=== PATIENT | female | born 1940 | race Caucasian/White ===

== ENCOUNTER → 2016-09-22 | Outpatient (CLI) | payer BC ==
[~2016-09-22] MED LIST: ASPEC325 PO; ASPI81TA28 PO; ATOR-24 PO; CHOL1000 PO; CHOL400T PO; CYAN100020 PO; CYAN500S5 PO; HYDR500C3 PO; LPT40 PO; MULT-513 PO; PRED1SUS3 OPR; PROP20TA67 PO; PROP80CA PO; SERT1TAB88 PO; SERT25TA PO
[2016-09-22 11:28] LABS: BASO % 0.8 %; BASO ABS # 0.07 K/uL (0-0.2); COMPLETE YES; EOS % 5.8 %; HEMATOCRIT 45.7 % (37-47); IG% 0.2 %; LYMPH % 14.9 %; LYMPH ABS # 1.24 K/uL (1.2-3.4); MEAN CELL VOLUME 96.2 fL (80-100); MEAN CORPUSCULAR HEMOGLOBIN 33.1 pg (25-34); MEAN CORPUSCULAR HGB CONC 34.4 g/dl (32-36); MEAN PLATELET VOLUME 12.4 fL (7.4-10.4); MONO % 10.7 %; NEUT % 67.6 %; PLATELET COUNT 477 K/uL (130-400); RED BLOOD COUNT 4.75 M/uL (4.2-5.4)
[2016-09-22 11:35] LABS: ALB/GLOB RATIO 1.5 (0.9-2); ALT/SGPT 24 U/L (12-78); AST/SGOT 16 U/L (15-37); BLOOD UREA NITROGEN 18 mg/dl (7-18); BUN/CREATININE RATIO 20.6 (10-20); CALCIUM 8.6 mg/dl (8.5-10.1); CARBON DIOXIDE 26 mmol/L (21-32); CHLORIDE 106 mmol/L (98-107); CREATININE 0.86 mg/dl (0.60-1.20); ESTIMATED AVERAGE GLUCOSE 111 mg/dl; GLUCOSE 100 mg/dl (70-99); HA1C FLAG Normal (Normal); SODIUM 140 mmol/L (136-145)
[2016-09-22 11:46] LABS: ALKALINE PHOSPHATASE 96 U/L (45-117); CHOLESTEROL 214 mg/dl (0-200); CHOLESTEROL/HDL RATIO 3.9; HDL CHOLESTEROL 55 mg/dl; LDL CHOLESTEROL CALCULATED 132 mg/dl; TRIGLYCERIDES 136 mg/dl (0-150); VERY LOW DENSITY LIPOPROT CALC 27 mg/dl
--- NOTE | 2016-09-26 13:45 | CODING QUERY MEDICAL NECESSITY ---
SUPPORTING DIAGNOSIS NEEDED A supporting diagnosis is required for the test/procedure performed on this patient in order for us to be reimbursed by the patient's insurance. Please provide a supporting diagnosis for the following test/procedure listed below next to the test name along with your signature. *If there is no additional diagnosis for this patient that would support the following test/procedure please document that below next to the test/procedure. Test(s)/Procedure(s) that require a supporting diagnosis: DOS 09/22 * Hba1c DIAGNOSIS: * Lipids DIAGNOSIS: Provider Signature: Date: Thank you Saba Chavez Health Information Management Once completed, please kindly fax back to [phone] For questions please call [phone]
== END | disposition home or self-care (01) ==
LOC: C.LABBC 08:33
PROVIDERS: ATTEND Internal Medicine
DX: E04.1 Nontoxic single thyroid nodule (principal); D75.1 Secondary polycythemia

== ENCOUNTER 2016-11-21 16:58 | Inpatient (IN) | payer BC, OTHER ==
[~2016-11-21] VITALS: Ht 157.5 cm; Wt 71.9 kg
[~2016-11-21 16:58] MED LIST changes: -ASPEC325 PO; -ATOR-24 PO; -CHOL1000 PO; -CYAN100020 PO; -CYAN500S5 PO; -HYDR500C3 PO; -LPT40 PO; -PRED1SUS3 OPR; -PROP20TA67 PO; -SERT25TA PO
[2016-11-21] MEDS ORDERED: SODIUM CHLORIDE 0.9% 1000ML 1,000 ML IV SCH (17:13)
--- NOTE | 2016-11-21 17:14 | EMERGENCY ROOM VISIT NOTE ---
History Report prepared by Sandra: Concepcion Michaels Under the Supervision of: Dr. Darrian Naylor D.O. 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 The patient states that earlier today she was picking up laundry and felt and "odd feeling" in her head and it concerned her causing her to sit down. She states she has numbness in her left jaw. She states she then crawled into bed and slept for 1.5 hours which she states is not normal for her to take nap but felt like she need it. Her states he was home at the time of his episode and he checked on her before she fell asleep and states she seemed to be acting and talking normally. After napping they went to see the patient's PCP and after running some tests the PCP refereed them to come to the ED for further testing. The nursing staff states the patient had another episode of jaw numbness and states the patient had a droop in her left side of her face and the patient states that she felt she was unable to use her jaw correctly but denies any jaw pain. The patient states that last night and this morning she was feeling good and did not have any other pain. She denies any chest pain, abdominal pain, leg pain or swelling, headache, nausea or vomiting. The patient states she has not had any of these symptoms in the past an denies any history of heart problem, lung problems, cancer, or blood clots. The patient states she has not had any recent travel. Source of History: patient, spouse/significant other, nursing staff Onset: earlier today RESIDENT CARE MANAGER Position: head Timing: other (episodes ) Associated Symptoms: + numbness (Jaw), No abdominal pain, No chest pain, No headache, No nausea, No vomiting Note: Associated symptoms: left sided face droop Review of Systems See HPI for pertinent positives & negatives. A total of 10 systems reviewed and were otherwise negative. Past Medical & Surgical Medical Problems: (1) Diverticulosis Colon (W/O Ment Of Hemorrhage) (2) Facial numbness (3) Hypertension Nos (4) Personal History Of Colonic Polyps (5) Personal History Oth Spec Digestive System Disease Family History Cancer Social History Smoking Status: Former Smoker Marital Status: Housing Status: lives with family Occupation Status: retired Current/Historical Medications Scheduled Aspirin (Aspirin Ec), 81 MG PO DAILY Cyanocobalamin (Vitamin B-12), 500 MCG PO DAILY Propranolol Hcl (Propranolol Hcl Er), 80 MG PO DAILY Sertraline HCl (Sertraline HCl), 25 MG PO DAILY Scheduled PRN Cholecalciferol (Vitamin D), 400 UNITS PO for supplement Allergies Coded Allergies: Morphine (Verified Allergy, Intermediate, nausea, 07/04/14) Uncoded Allergies: SULFA (Allergy, Mild, vomiting, 12/29/15) Physical Exam Vital Signs Date Time Temp Pulse Resp B/P Pulse Ox O2 Delivery O2 Flow Rate FiO2 11/21/16 18:28 62 13 93 11/21/16 17:59 55 153/80 93 Room Air 64 147/88 68 174/89 11/21/16 17:58 66 18 91 11/21/16 17:57 147/88 174/89 11/21/16 17:56 153/80 11/21/16 17:15 96 Room Air 11/21/16 17:14 61 11/21/16 17:01 36.9 74 18 193/98 100 Room Air Physical Exam GENERAL: Patient is awake, alert, and in no acute distress. Patient is resting comfortably and showing no signs of anxiety EYES: The conjunctivae are clear. The pupils are round and reactive. EARS, NOSE, MOUTH AND THROAT: The nose is without any evidence of any deformity. Mucous membranes are moist tongue is midline NECK: The neck is nontender and supple. RESPIRATORY: Normal respiratory effort is noted there is no evidence of wheezing rhonchi or rales CARDIOVASCULAR: Regular rate and rhythm noted there no murmurs rubs or gallops normal S1 normal S2 GASTROINTESTINAL: The abdomen is soft. Bowel sounds are present in all quadrants. Abdomen is nontender MUSCULOSKELETAL/EXTREMITIES: There is no evidence of gross deformity full range of motion is noted in the hips and shoulders SKIN: There is no obvious evidence of any rash. There are no petechiae, pallor or cyanosis noted. NEUROLOGIC: Patient is awake alert and oriented x3 strength is symmetric patellar reflexes are 2+ bilaterally Medical Decision & Procedures ER Provider Diagnostic Interpretation: X-ray results as stated below per interpretation by me and the radiologist. CHEST ONE VIEW PORTABLE CLINICAL HISTORY: Stroke mental status change COMPARISON STUDY: 09/18/2014 FINDINGS: The bones soft tissues and hemidiaphragms are normal. The cardiomediastinal silhouette is normal. The lungs are clear. The pulmonary vasculature is normal. IMPRESSION: Negative chest. Electronically signed by: Scot Baker M.D. 11/21/2016 5:26 PM Dictated Date/Time: 11/21/2016 5:[address] results as stated below per my review and radiologist interpretation. HEAD CT NONCONTRAST CT DOSE: 537.48 mGy.cm HISTORY: Mental status change Stroke TECHNIQUE: Multiaxial CT images of the head were performed without the use of intravenous contrast. Comparison: None. Findings: The paranasal sinuses and mastoid air cells are clear. The calvarium and skull base are intact. The ventricles and sulci are within normal limits. There is no mass, hematoma, midline shift, or acute infarct. Impression: No acute intracranial abnormality. Electronically signed by: Scot Baker M.D. 11/21/2016 5:33 PM Dictated Date/Time: 11/21/2016 5:32 PM Laboratory Results 11/21/16 17:10 Red Blood Count 5.12, Mean Corpuscular Volume 93.9, Mean Corpuscular Hemoglobin 32.8, Mean Corpuscular Hemoglobin Concent 34.9, Mean Platelet Volume 11.7, Neutrophils (%) (Auto) 68.9, Lymphocytes (%) (Auto) 13.9, Monocytes (%) (Auto) 11.6, Eosinophils (%) (Auto) 4.9, Basophils (%) (Auto) 0.5, Neutrophils # (Auto ) 7.83, Lymphocytes # (Auto) 1.58, Monocytes # (Auto) 1.32, Eosinophils # (Auto ) 0.56, Basophils # (Auto) 0.06 11/21/16 17:10 Test 11/21/16 17:10 11/21/16 17:22 White Blood Count 11.37 K/uL (4.8-10.8) Red Blood Count 5.12 M/uL (4.2-5.4) Hemoglobin 16.8 g/dL (12.0-16.0) Hematocrit 48.1 % (37-47) Mean Corpuscular Volume 93.9 fL (80-100) Mean Corpuscular Hemoglobin 32.8 pg (25-34) Mean Corpuscular Hemoglobin Concent 34.9 g/dl (32-36) Platelet Count 578 K/uL (130-400) Mean Platelet Volume 11.7 fL (7.4-10.4) Neutrophils (%) (Auto) 68.9 % Lymphocytes (%) (Auto) 13.9 % Monocytes (%) (Auto) 11.6 % Eosinophils (%) (Auto) 4.9 % Basophils (%) (Auto) 0.5 % Neutrophils # (Auto) 7.83 K/uL (1.4-6.5) Lymphocytes # (Auto) 1.58 K/uL (1.2-3.4) Monocytes # (Auto) 1.32 K/uL (0.11-0.59) Eosinophils # (Auto) 0.56 K/uL (0-0.5) Basophils # (Auto) 0.06 K/uL (0-0.2) RDW Standard Deviation 51.4 fL (36.4-46.3) RDW Coefficient of Variation 15.0 % (11.5-14.5) Immature Granulocyte % (Auto) 0.2 % Immature Granulocyte # (Auto) 0.02 K/uL (0.00-0.02) Prothrombin Time 10.7 SECONDS (9.0-12.0) Prothromb Time International Ratio 1.0 (0.9-1.1) Activated Partial Thromboplast Time 27.5 SECONDS (21.0-31.0) Partial Thromboplastin Ratio 1.1 Anion Gap 8.0 mmol/L (3-11) Est Creatinine Clear Calc Drug Dose 49.5 ml/min Estimated GFR () 74.0 Estimated GFR (Non- 63.8 BUN/Creatinine Ratio 20.4 (10-20) Calcium Level 9.0 mg/dl (8.5-10.1) Magnesium Level 2.4 mg/dl (1.8-2.4) Total Bilirubin 0.5 mg/dl (0.2-1) Direct Bilirubin 0.1 mg/dl (0-0.2) Aspartate Amino Transf (AST/SGOT) 20 U/L (15-37) Alanine Aminotransferase (ALT/SGPT) 33 U/L (12-78) Alkaline Phosphatase 108 U/L (45-117) Total Creatine Kinase 47 U/L (26-192) Creatine Kinase MB < 0.5 ng/ml (0.5-3.6) Creatine Kinase MB Ratio (0-3.0) Troponin I < 0.015 ng/ml (0-0.045) Total Protein 6.9 gm/dl (6.4-8.2) Albumin 4.2 gm/dl (3.4-5.0) Free Thyroxine 1.15 ng/dl (0.80-1.60) Bedside Glucose 96 mg/dl (70-90) Laboratory results per my review. Medications Administered Medications (Trade) Dose Ordered Sig/Nile Route Start Time Stop Time Status Last Admin Dose Admin Sodium Chloride (Nss 1000ml) 1,000 ml @ 50 mls/hr Q20H IV 11/21/16 17:13 11/21/16 21:15 DC 11/21/16 17:35 50 MLS/HR ECG Indication: weakness Rate (beats per minute): 57 Rhythm: sinus bradycardia Findings: T-wave inversion (Anterior, Inferior), no ectopy, other (LVH noted by voltage criteria ) ED Course 1704: The patient was evaluated in room B1. A complete history and physical examination were performed. 1713: Ordered NSS 1,000 ml @ 50 mls/hr IV 1804: I reevaluated the patient and she was resting comfortably. 1835: I discussed the case with Dr. Addy MORALEZ Hospitalist. He agreed to evaluate the patient for further management and care 2006: I reevaluated the patient and she was resting comfortably. Medical Decision Prior records/ancillary studies reviewed and summarized above. Nursing notes reviewed. Differential diagnosis: Etiologies such as metabolic, infection, hypo/hyperglycemia, electrolyte abnormalities, cardiac sources, intracerebral event, toxicologic, neurologic, as well as others were entertained. The patient is a 76-year-old female who presented to the emergency department for an evaluation of dizziness and near syncope. The patient describes an episode which began earlier in the day she's had a few these episodes throughout the day. She went to see her primary care physician for these symptoms and was sent to the emergency department for bradycardia and abnormal EKG. Currently the patient does take a beta stas for headache but does not have hypertension problems normally. The patient did not have any focal neurologic deficit upon arrival to the emergency department. The patient's bradycardia did not appear to be associated with dizziness or near-syncope. The patient did not have an abnormal cardiac biomarker in the emergency department. I discussed the patient's laboratory and radiographic studies with her. She had another episode while she was in the emergency Department which quickly resolved. I discussed her case with the on-call [facility] hospitalist group. They've agreed to evaluate the patient in the emergency department for further management and disposition. Consults Time Called: 1832 Consulting Physician: Dr. Addy MORALEZ Hospitalist Returned Call: 1835 I discussed the case with Dr. Addy MORALEZ Hospitalist. He agreed to evaluate the patient for further management and care Impression Primary Impression: Abnormal EKG Additional Impressions: Near syncope TIA (transient ischemic attack) Bradycardia Scribe Attestation The scribe's documentation has been prepared under my direction and personally reviewed by me in its entirety. I confirm that the note above accurately reflects all work, treatment, procedures, and medical decision making performed by me. Departure Information Dispostion Being Evaluated By Hospitalist Referrals Jamal Garcia M.D. (PCP) Patient Instructions My [facility] Problem Qualifiers Additional Impressions: TIA (transient ischemic attack) Transient cerebral ischemia type: unspecified Qualified Codes: G45.9 - Transient cerebral ischemic attack, unspecified
[2016-11-21 17:23] LABS: BASO % 0.5 %; BASO ABS # 0.06 K/uL (0-0.2); COMPLETE YES; EOS % 4.9 %; HEMATOCRIT 48.1 % (37-47); IG% 0.2 %; LYMPH % 13.9 %; LYMPH ABS # 1.58 K/uL (1.2-3.4); MEAN CELL VOLUME 93.9 fL (80-100); MEAN CORPUSCULAR HEMOGLOBIN 32.8 pg (25-34); MEAN CORPUSCULAR HGB CONC 34.9 g/dl (32-36); MEAN PLATELET VOLUME 11.7 fL (7.4-10.4); MONO % 11.6 %; NEUT % 68.9 %; PLATELET COUNT 578 K/uL (130-400); RED BLOOD COUNT 5.12 M/uL (4.2-5.4); WHITE BLOOD COUNT 11.37 K/uL (4.8-10.8)
--- NOTE | 2016-11-21 17:27 | DIAGNOSTIC IMAGING REPORT ---
CHEST ONE VIEW PORTABLE CLINICAL HISTORY: Stroke mental status change COMPARISON STUDY: 09/18/2014 FINDINGS: The bones soft tissues and hemidiaphragms are normal. The cardiomediastinal silhouette is normal. The lungs are clear. The pulmonary vasculature is normal. IMPRESSION: Negative chest. Electronically signed by: Scot Baker M.D. 11/21/2016 5:26 PM Dictated Date/Time: 11/21/2016 5:26 PM
--- NOTE | 2016-11-21 17:34 | DIAGNOSTIC IMAGING REPORT ---
HEAD CT NONCONTRAST CT DOSE: 537.48 mGy.cm HISTORY: Mental status change Stroke TECHNIQUE: Multiaxial CT images of the head were performed without the use of intravenous contrast. Comparison: None. Findings: The paranasal sinuses and mastoid air cells are clear. The calvarium and skull base are intact. The ventricles and sulci are within normal limits. There is no mass, hematoma, midline shift, or acute infarct. Impression: No acute intracranial abnormality. Electronically signed by: Scot Baker M.D. 11/21/2016 5:33 PM Dictated Date/Time: 11/21/2016 5:32 PM
[2016-11-21 17:35] LABS: PARTIAL THROMBOPLASTIN RATIO 1.1; PROTHROMBIN TIME (PATIENT) 10.7 SECONDS (9.0-12.0)
[2016-11-21 17:40] LABS: ALT/SGPT 33 U/L (12-78); AST/SGOT 20 U/L (15-37); BLOOD UREA NITROGEN 18 mg/dl (7-18); BUN/CREATININE RATIO 20.4 (10-20); CARBON DIOXIDE 27 mmol/L (21-32); CHLORIDE 108 mmol/L (98-107); CREATININE 0.87 mg/dl (0.60-1.20); GLUCOSE 91 mg/dl (70-99); MAGNESIUM 2.4 mg/dl (1.8-2.4); POTASSIUM 3.8 mmol/L (3.5-5.1); SODIUM 143 mmol/L (136-145)
[2016-11-21] MEDS ORDERED: CYAN500S5 PO (17:41)
[2016-11-21 17:43] LABS: ALKALINE PHOSPHATASE 108 U/L (45-117)
[2016-11-21] MEDS ORDERED: MAGNESIUM HYDROXIDE SUSP 30 ML UDC PO PRN (19:45)
[2016-11-21] MEDS ORDERED: ONDANSETRON INJ 2 MG/ML 2 ML VIAL IV PRN (19:45)
[2016-11-21] MEDS ORDERED: ACETAMINOPHEN 325 MG TAB PO PRN (19:45)
[2016-11-21] MEDS ORDERED: PHARMACIST DISCHARGE MED REC CONSULT PRN ×3 (19:45→20:45)
[2016-11-21] MEDS ORDERED: ALUMINUM/MAGNESIUM/SIMETH (MAALOX MAX) 30 ML UDC PO PRN (19:45)
[2016-11-21] MEDS ORDERED: POLYETHYLENE (MIRALAX) 17 GM PACK PO PRN (19:45)
[2016-11-21] MEDS ORDERED: NITROGLYCERIN 0.4 MG SL PER TAB CHARGE SL PRN (19:45)
--- NOTE | 2016-11-21 20:00 | History and Physical ---
History & Physical Date & Time of Service: Nov 21, 2016 at 19:55 Chief Complaint: Dizziness, Physician Referred Primary Care Physician: Jamal Garcia M.D. History of Present Illness Source: patient, family 77 yo F p/w hx of generalized weakness and transient facial numbness. She reports feeling an "odd feeling" that started this morning. including weakness, dizziness though she denies syncope, vertigo symptoms. Around 2PM She also noticed numbness Left side of face that lasted less than a minute, called for . found was sitting on floor. denies confusion, LOC. Patient took a nap for an hr then went to clinic with PCP Dr. Crooks around 3: 45 PM AT Clinic, EKG showed sinus bradycardia at a rate of 47 and later sent her to ED. While In ED , patient experience episode of Rt Jaw numbness and stiffness again with transient double vision, which lasted less than a minute. Patient denies any further symptoms. no cp , no sob, no palpitation, no syncope, no paroxysmal nocturnal dyspnea, no orthopnea. Past Medical/Surgical History Medical Problems: (1) Diverticulosis Colon (W/O Ment Of Hemorrhage) Status: Chronic (2) Hypertension Nos Status: Chronic (3) Personal History Of Colonic Polyps Status: Chronic (4) Personal History Oth Spec Digestive System Disease Status: Chronic Sx: Partial Colon resection Family History Cancer Social History Smoking Status: Former Smoker Marital Status: Housing status: lives with family Occupational Status: retired Immunizations History of Influenza Vaccine: Yes History of Tetanus Vaccine?: Yes History of Pneumococcal: Yes Pneumococcal Date: May 30, 2014 History of Hepatitis B Vaccine: Unknown Multi-Drug Resistant Organisms History of MDRO: No Allergies Coded Allergies: Morphine (Verified Allergy, Intermediate, nausea, 07/04/14) Uncoded Allergies: SULFA (Allergy, Mild, vomiting, 12/29/15) Home Medications Scheduled Aspirin (Aspirin Ec), 81 MG PO DAILY Cyanocobalamin (Vitamin B-12), 500 MCG PO DAILY Propranolol Hcl (Propranolol Hcl Er), 80 MG PO DAILY Sertraline HCl (Sertraline HCl), 25 MG PO DAILY Scheduled PRN Cholecalciferol (Vitamin D), 400 UNITS PO for supplement Physical Exam Vital Signs Date Time Temp Pulse Resp B/P Pulse Ox O2 Delivery O2 Flow Rate FiO2 11/21/16 18:28 62 13 93 11/21/16 17:59 55 153/80 93 Room Air 64 147/88 68 174/89 11/21/16 17:58 66 18 91 11/21/16 17:57 147/88 174/89 11/21/16 17:56 153/80 11/21/16 17:15 96 Room Air 11/21/16 17:14 61 11/21/16 17:01 36.9 74 18 193/98 100 Room Air General Appearance: WD/WN, no apparent distress Head: normocephalic, atraumatic Eyes: normal inspection, PERRL, EOMI ENT: normal ENT inspection Neck: supple, no adenopathy, no carotid bruits Respiratory/Chest: chest non-tender, lungs clear, normal breath sounds, no respiratory distress Cardiovascular: regular rate, rhythm, no edema, no murmur, normal peripheral pulses Abdomen/GI: normal bowel sounds, non tender, soft, no organomegaly Extremities/Musculoskelatal: no calf tenderness, no pedal edema Neurologic/Psych: ict support engineer II-XII nml as tested, no motor/sensory deficits, alert, normal mood/affect, normal reflexes, oriented x 3 Skin: normal color, warm/dry, no rash Diagnostics Laboratory Results Results Past 24 Hours Test 11/21/16 17:10 11/21/16 17:22 11/21/16 19:38 Range/Units White Blood Count 11.37 4.8-10.8 K/uL Red Blood Count 5.12 4.2-5.4 M/uL Hemoglobin 16.8 12.0-16.0 g/dL Hematocrit 48.1 37-47 % Mean Corpuscular Volume 93.9 80-100 fL Mean Corpuscular Hemoglobin 32.8 25-34 pg Mean Corpuscular Hemoglobin Concent 34.9 32-36 g/dl Platelet Count 578 130-400 K/uL Mean Platelet Volume 11.7 7.4-10.4 fL Neutrophils (%) (Auto) 68.9 % Lymphocytes (%) (Auto) 13.9 % Monocytes (%) (Auto) 11.6 % Eosinophils (%) (Auto) 4.9 % Basophils (%) (Auto) 0.5 % Neutrophils # (Auto) 7.83 1.4-6.5 K/uL Lymphocytes # (Auto) 1.58 1.2-3.4 K/uL Monocytes # (Auto) 1.32 0.11-0.59 K/uL Eosinophils # (Auto) 0.56 0-0.5 K/uL Basophils # (Auto) 0.06 0-0.2 K/uL RDW Standard Deviation 51.4 36.4-46.3 fL RDW Coefficient of Variation 15.0 11.5-14.5 % Immature Granulocyte % (Auto) 0.2 % Immature Granulocyte # (Auto) 0.02 0.00-0.02 K/uL Prothrombin Time 10.7 9.0-12.0 SECONDS Prothromb Time International Ratio 1.0 0.9-1.1 Activated Partial Thromboplast Time 27.5 21.0-31.0 SECONDS Partial Thromboplastin Ratio 1.1 Sodium Level 143 136-145 mmol/L Potassium Level 3.8 3.5-5.1 mmol/L Chloride Level 108 98-107 mmol/L Carbon Dioxide Level 27 21-32 mmol/L Anion Gap 8.0 3-11 mmol/L Blood Urea Nitrogen 18 7-18 mg/dl Creatinine 0.87 0.60-1.20 mg/dl Est Creatinine Clear Calc Drug Dose 49.5 ml/min Estimated GFR () 74.0 Estimated GFR (Non- 63.8 BUN/Creatinine Ratio 20.4 10-20 Random Glucose 91 70-99 mg/dl Calcium Level 9.0 8.5-10.1 mg/dl Magnesium Level 2.4 1.8-2.4 mg/dl Total Bilirubin 0.5 0.2-1 mg/dl Direct Bilirubin 0.1 0-0.2 mg/dl Aspartate Amino Transf (AST/SGOT) 20 15-37 U/L Alanine Aminotransferase (ALT/SGPT) 33 12-78 U/L Alkaline Phosphatase 108 45-117 U/L Total Creatine Kinase 47 26-192 U/L Creatine Kinase MB < 0.5 0.5-3.6 ng/ml Creatine Kinase MB Ratio 0-3.0 Troponin I < 0.015 0-0.045 ng/ml Total Protein 6.9 6.4-8.2 gm/dl Albumin 4.2 3.4-5.0 gm/dl Free Thyroxine 1.15 0.80-1.60 ng/dl Bedside Glucose 96 70-90 mg/dl Diagnostic Radiology HEAD CT NONCONTRAST CT DOSE: 537.48 mGy.cm HISTORY: Mental status change Stroke TECHNIQUE: Multiaxial CT images of the head were performed without the use of intravenous contrast. Comparison: None. Findings: The paranasal sinuses and mastoid air cells are clear. The calvarium and skull base are intact. The ventricles and sulci are within normal limits. There is no mass, hematoma, midline shift, or acute infarct. Impression: No acute intracranial abnormality. EKG sinus bradycardia Impression Assessment and Plan Documented By: Larry Daly 76 yo F w/ hx of HTN on propranolol presenting with hx of transient facial numbness with subsequent transient jaw stiffening, visual disturbance while in ED, with sinus bradycardia on EKG Facial Numbness, Visual disturbance - transient, currently asx -most likely secondary to TIA, -considered Complex,Migraine, Trigeminal neuralgia but unlikely without pain, MS /optic neuritis considered but unlikely with no eye pain -considered symptomatic bradycardia as cause of dizziness but would not explain facial numbness -F/U MRI -F/U Echo -F/U carotid Doppler Start Asprin 325 mg daily Start Statin neuro consult Sinus Bradycardia -rate of 47 while in clinic before arrival -pulse has normalized -Cardiology consult HTN Hold Propranolol DVT Prophylaxis Heparin Depression Sertraline Disposition Admit to Telemetry Resident Physician Supervision Note: Pt examined independently. I discussed the case with the resident and agree with the findings and plan as documented in the note. Any exceptions or clarifications are listed here. Admitted with acute visual changes, facial paresthesias - bradycardia at primary MD office - HR 47 OE AAO x 3 S1,2 R CTAB NT, ND No defecits on full neuro exam P: ASA 325 dialy Neuro chhecks on tele Statin Echo, MRI/MRA, Carotid doppler Neuro consult Above discussed at length with pt Level of Care Telemetry Resuscitation Status FULL RESUSCITATION VTE Prophylaxis VTE Risk Assessment Done? Y/N: Yes Risk Level: Low Given or contraindicated: Unfractionated heparin SQ Social Service Consult None Apply Resident Tracking Resident Involvement: Resident Care Provided Care Provided: Adult Hospital Medicine
[2016-11-21 20:07] VITALS: Ht 157.5 cm; Wt 71.9 kg
[2016-11-21 20:46] LABS: URINE APPEARANCE CLEAR (CLEAR); URINE BILIRUBIN NEG (NEG); URINE COLOR YELLOW; URINE EPITHELIAL CELL AUTO >30 /lpf (0-5); URINE NITRITE NEG (NEG); URINE SPECIFIC GRAVITY 1.013 (1.000-1.030); UROBILINOGEN NEG (NEG)
[2016-11-21 20:49] LABS: MANUAL MICROSCOPIC REQUIRED? NO; REVIEW REQ? YES
[2016-11-21] MEDS ORDERED: ASPIRIN 81 MG CHEW PO STA (20:54)
[2016-11-21 20:59] LABS: URINE MUCUS PRESENT (NONE PRSENT)
[2016-11-21 21:01] VITALS: O2SAT 94
[2016-11-21 21:15] VITALS: BP_SYST 175; BP_SYST 178; BP_DIAS 112; BP_DIAS 82; PULSE 59; TEMP 36.9; O2SAT 96
[2016-11-21 23:05] VITALS: BP 151/86; PULSE 55; TEMP 36.6; O2SAT 94
[2016-11-21] MEDS: NITROGLYCERIN OINT 2% 1GM PACKET EXT SCH (23:07)
[2016-11-21] MEDS: HEPARIN SOD 5000 UNIT/0.5 ML CARP SQ SCH (23:08)
[2016-11-22 03:45] VITALS: BP 112/78; PULSE 63; TEMP 36.8; O2SAT 94
[2016-11-22] MEDS: NITROGLYCERIN OINT 2% 1GM PACKET EXT SCH ×2 (04:06→09:07)
[2016-11-22 05:02] VITALS: BP 157/95; PULSE 66; TEMP 36.8; O2SAT 94
[2016-11-22] MEDS: HEPARIN SOD 5000 UNIT/0.5 ML CARP SQ SCH (06:00)
[2016-11-22 06:05] LABS: BASO % 0.4 %; BASO ABS # 0.04 K/uL (0-0.2); COMPLETE YES; EOS % 5.5 %; HEMATOCRIT 44.3 % (37-47); IG% 0.2 %; LYMPH % 13.8 %; LYMPH ABS # 1.26 K/uL (1.2-3.4); MEAN CELL VOLUME 91.5 fL (80-100); MEAN CORPUSCULAR HEMOGLOBIN 31.4 pg (25-34); MEAN CORPUSCULAR HGB CONC 34.3 g/dl (32-36); MEAN PLATELET VOLUME 11.3 fL (7.4-10.4); MONO % 8.4 %; NEUT % 71.7 %; PLATELET COUNT 484 K/uL (130-400); RED BLOOD COUNT 4.84 M/uL (4.2-5.4); WHITE BLOOD COUNT 9.16 K/uL (4.8-10.8)
[2016-11-22 06:37] LABS: BUN/CREATININE RATIO 18.3 (10-20); CALCIUM 8.7 mg/dl (8.5-10.1); CREATININE 0.79 mg/dl (0.60-1.20); POTASSIUM 3.6 mmol/L (3.5-5.1)
[2016-11-22 06:40] LABS: CHOLESTEROL/HDL RATIO 3.8
[2016-11-22 07:13] LABS: ESTIMATED AVERAGE GLUCOSE 117 mg/dl; HA1C FLAG Normal (Normal)
--- NOTE | 2016-11-22 07:44 | Hospitalist Progress Note ---
Hospitalist Progress Note Date of Service Nov 22, 2016. Subjective Pt evaluation today including: conversation w/ patient, physical exam, chart review, lab review, review of studies, review of inpatient medication list Pain: none PO Intake: Good Voiding: no voiding problems The patient was seen and examined this morning. Pt reports doing well this morning. She has no complaints. Denies any symptoms like she experienced yesterday. She denies any facial numbness or tingling, no focal weakness or changes in vision. She had echocardiogram already, and will plan for carotid dopplers today. All Other Systems: Reviewed and Negative (Other than listed above) Objective Vital Signs Date Time Temp Pulse Resp B/P Pulse Ox O2 Delivery O2 Flow Rate FiO2 11/22/16 05:02 36.8 66 17 157/95 94 Room Air 11/22/16 03:45 Room Air 11/22/16 03:45 36.8 63 15 112/78 94 Room Air 11/21/16 23:15 Room Air 11/21/16 23:05 36.6 55 17 151/86 94 Room Air 11/21/16 21:15 36.9 59 15 178/112 96 Room Air 175/82 11/21/16 21:01 62 18 155/90 94 11/21/16 20:25 62 18 155/90 94 Room Air 11/21/16 20:07 Room Air 11/21/16 18:28 62 13 93 11/21/16 17:59 55 153/80 93 Room Air 64 147/88 68 174/89 11/21/16 17:58 66 18 91 11/21/16 17:57 147/88 174/89 11/21/16 17:56 153/80 11/21/16 17:15 96 Room Air 11/21/16 17:14 61 11/21/16 17:01 36.9 74 18 193/98 100 Room Air Physical Exam General Appearance: WD/WN, no apparent distress Eyes: PERRL, EOMI ENT: hearing grossly normal, pharynx normal Neck: supple, no JVD Respiratory/Chest: lungs clear, normal breath sounds, no accessory muscle use Cardiovascular: regular rate, rhythm, no JVD, no murmur Abdomen: normal bowel sounds, non tender, soft, no organomegaly Extremities: no pedal edema, no calf tenderness, + pertinent finding (+ right lateral ankle lipoma) Neurologic/Psychiatric: alert, normal mood/affect, oriented x 3, + pertinent finding (Stenght testing is equal in upper and lower ext, 5/5 throughout. ) Skin: normal color, warm/dry Laboratory Results Last 24 Hours Test 11/21/16 17:10 11/21/16 17:22 11/21/16 20:30 11/22/16 05:40 White Blood Count 11.37 K/uL 9.16 K/uL Red Blood Count 5.12 M/uL 4.84 M/uL Hemoglobin 16.8 g/dL 15.2 g/dL Hematocrit 48.1 % 44.3 % Mean Corpuscular Volume 93.9 fL 91.5 fL Mean Corpuscular Hemoglobin 32.8 pg 31.4 pg Mean Corpuscular Hemoglobin Concent 34.9 g/dl 34.3 g/dl Platelet Count 578 K/uL 484 K/uL Mean Platelet Volume 11.7 fL 11.3 fL Neutrophils (%) (Auto) 68.9 % 71.7 % Lymphocytes (%) (Auto) 13.9 % 13.8 % Monocytes (%) (Auto) 11.6 % 8.4 % Eosinophils (%) (Auto) 4.9 % 5.5 % Basophils (%) (Auto) 0.5 % 0.4 % Neutrophils # (Auto) 7.83 K/uL 6.57 K/uL Lymphocytes # (Auto) 1.58 K/uL 1.26 K/uL Monocytes # (Auto) 1.32 K/uL 0.77 K/uL Eosinophils # (Auto) 0.56 K/uL 0.50 K/uL Basophils # (Auto) 0.06 K/uL 0.04 K/uL RDW Standard Deviation 51.4 fL 49.8 fL RDW Coefficient of Variation 15.0 % 14.8 % Immature Granulocyte % (Auto) 0.2 % 0.2 % Immature Granulocyte # (Auto) 0.02 K/uL 0.02 K/uL Prothrombin Time 10.7 SECONDS Prothromb Time International Ratio 1.0 Activated Partial Thromboplast Time 27.5 SECONDS Partial Thromboplastin Ratio 1.1 Sodium Level 143 mmol/L 142 mmol/L Potassium Level 3.8 mmol/L 3.6 mmol/L Chloride Level 108 mmol/L 108 mmol/L Carbon Dioxide Level 27 mmol/L 25 mmol/L Anion Gap 8.0 mmol/L 9.0 mmol/L Blood Urea Nitrogen 18 mg/dl 14 mg/dl Creatinine 0.87 mg/dl 0.79 mg/dl Est Creatinine Clear Calc Drug Dose 49.5 ml/min 54.2 ml/min Estimated GFR () 74.0 83.1 Estimated GFR (Non- 63.8 71.7 BUN/Creatinine Ratio 20.4 18.3 Random Glucose 91 mg/dl 125 mg/dl Estimated Average Glucose 117 mg/dl Hemoglobin A1c 5.7 % Calcium Level 9.0 mg/dl 8.7 mg/dl Magnesium Level 2.4 mg/dl Total Bilirubin 0.5 mg/dl Direct Bilirubin 0.1 mg/dl Aspartate Amino Transf (AST/SGOT) 20 U/L Alanine Aminotransferase (ALT/SGPT) 33 U/L Alkaline Phosphatase 108 U/L Total Creatine Kinase 47 U/L Creatine Kinase MB < 0.5 ng/ml Creatine Kinase MB Ratio Troponin I < 0.015 ng/ml Total Protein 6.9 gm/dl Albumin 4.2 gm/dl Free Thyroxine 1.15 ng/dl Bedside Glucose 96 mg/dl Urine Color YELLOW Urine Appearance CLEAR Urine pH 5.0 Urine Specific Warren 1.013 Urine Protein NEG Urine Glucose (UA) NEG Urine Ketones NEG Urine Occult Blood NEG Urine Nitrite NEG Urine Bilirubin NEG Urine Urobilinogen NEG Urine Leukocyte Esterase MODERATE Urine WBC (Auto) 1-5 /hpf Urine RBC (Auto) 0-4 /hpf Urine Hyaline Casts (Auto) 1-5 /lpf Urine Epithelial Cells (Auto) >30 /lpf Urine Bacteria (Auto) NEG Urine Mucus PRESENT Urine Yeast (Auto) Triglycerides Level 160 mg/dl Cholesterol Level 204 mg/dl HDL Cholesterol 54 mg/dl LDL Cholesterol, Calculated 118 mg/dl VLDL Cholesterol, Calculated 32 mg/dl Cholesterol/HDL Ratio 3.8 Assessment and Plan 76 yo F w/ hx of HTN on propranolol presenting with hx of transient facial numbness with subsequent transient jaw stiffening, visual disturbance while in ED, with sinus bradycardia on EKG ? TIA with transient facial numbness and visual disturbance or ? sympotomatic bradycardia - CT Head reviewed and is negative, Awaiting MRI - Propranolol on hold ( ER 80 mg daily); HR in 50s-60s and BP elevated up into 150-160s. - If ok with cards could just reduce the dose. - 2 D Echo & carotid dopplers ordered - Lipid panel completed and she is high with total cholesterol >200, elevated triglycerides - Cont asa 325 mg daily, statin - Cardiology and neurology consulted Sinus Bradycardia -rate of 47 while in clinic before arrival, continues to be in 50s and 60s without agent on board, although bp is elevated -Cardiology consult HTN Hold Propranolol for now Depression//Anxiety Sertraline 25 mg po daily DVT ppx: Continue heparin sq Disposition: from home, likely discharge later today if studies complete and remains stable, await cards & neuro input.
[2016-11-22 08:03] VITALS: BP 131/85; PULSE 74; TEMP 36.9; O2SAT 92
[2016-11-22] MEDS ORDERED: ATORVASTATIN 40 MG TAB PO SCH (09:00)
[2016-11-22] MEDS ORDERED: ASPIRIN 325 MG ECTAB PO SCH ×2 (09:00)
[2016-11-22] MEDS ORDERED: SERTRALINE HCL 50 MG TAB PO SCH (09:00)
[2016-11-22] MEDS ORDERED: ASPIRIN 81 MG ECTAB PO SCH (09:00)
[2016-11-22] MEDS ORDERED: LORAZEPAM 1 MG TAB PO PRN (09:30)
[2016-11-22] MEDS ORDERED: LORAZEPAM 0.5 MG TAB PO PRN (09:30)
--- NOTE | 2016-11-22 11:05 | ECHOCARDIOGRAM REPORT ---
*NOTICE TO RECEIVING REPUBLICAN AGENCY This information is strictly Confidential and protected under [place] law. [place] law prohibits you from making any further disclosure of this information unless further disclosure is expressly permitted by the written consent of the person to whom it pertains or is authorized by law. A general authorization for the release of medical or other information is not sufficient for this purpose. Hospital accepts no responsibility if the information is made available to any other person, INCLUDING THE PATIENT. Interpretation Summary * Name: ROBIN MONZON Study Date: 11/22/2016 07:21 AM BP: 157/95 mmHg * Patient Location: C.2E\S\E209\S\1 HR: 66 * : 1940 (M/d/yyyy) Gender: Female Height: 62 in * Age: 76 yrs Ethnicity: CA Weight: 164 lb * Ordering Physician: Eduard Simon * Referring Physician: Jamal Garcia * Performed By: Matthew Mabry RCS * * Reason For Study: Cerebral Ischemia/Embolus * BSA: 1.8 m2 * -- Conclusions -- * 1. Normal LV size and wall thickness. * 2. Normal LV systolic function. LVEF 60-65%. No regional wall motion abnormlities. * 3. Normal RV size and function. * 4. No significant valvular pathology. * 5. Negative saline contrast study. No cardioembolic sources identified. * 6. Grade I diastolic dysfunction. * 7. No prior studies for comparison. Procedure Details * A complete two-dimensional transthoracic echocardiogram was performed (2D, M-mode, Doppler and color flow Doppler). * A saline contrast injection was performed to assess for cardiac shunting. * The injection was performed through an intravenous line in the right arm. * The attending nurse who injected the saline contrast was Guille Reyes RN. * A total of 20 cc of agitated saline was given. Left Ventricle * The left ventricle is grossly normal size. * There is normal left ventricular wall thickness. * Ejection Fraction = 60-65%. * No regional wall motion abnormalities noted. Right Ventricle * The right ventricle is grossly normal size. * The right ventricular systolic function is normal as assessed by tricuspid annular plane systolic excursion (TAPSE) (normal >1.5 cm). Atria * The left atrial size is normal. * Right atrial size is normal. * Injection of contrast documented no interatrial shunt. Mitral Valve * The mitral valve is grossly normal. * There is no mitral valve stenosis. * There is trace mitral regurgitation. Tricuspid Valve * The tricuspid valve is not well visualized, but is grossly normal. * Tricuspid stenosis is absent. * There is trace tricuspid regurgitation. Aortic Valve * The aortic valve opens well. * The aortic valve is trileaflet. * No hemodynamically significant valvular aortic stenosis. * There is no significant aortic regurgitation. Pulmonic Valve * The pulmonary valve is inadequately visualized, but the Doppler data is adequate for interpretation. * Pulmonic stenosis is absent. * There is no significant pulmonary regurgitation. Great Vessels * The aortic root and proximal ascending aorta are normal sized. * No Doppler or imaging evidence of an aortic coarctation. Pericardium/Pleural * There is no pericardial effusion. Great Vessels * Normal inferior vena cava size and collapsability with sniff indicates a normal right atrial pressure of 3 mmHg Left Ventricular Diastolic Function * Grade I diastolic dysfunction, (abnormal relaxation pattern). MMode 2D Measurements and Calculations IVSd 1.0 cm IVSs 1.3 cm LVIDd 4.2 cm LVIDs 2.8 cm LVPWd 1.0 cm LVPWs 1.6 cm IVS/LVPW 10 FS 33.2 % EDV(Teich) 77.5 ml ESV(Teich) 29.3 ml EF(Teich) 62.2 % EDV(cubed) 72.9 ml ESV(cubed) 21.7 ml EF(cubed) 70.2 % % IVS thick 29.5 % % LVPW thick 56.4 % LV mass(C)d 140.5 grams LV mass(C)dI 80.0 grams/m\S\2 LV mass(C)s 138.0 grams LV mass(C)sI 78.5 grams/m\S\2 CO(Teich) 2.8 l/min CI(Teich) 1.6 l/min/m\S\2 SV(Teich) 48.2 ml SI(Teich) 27.4 ml/m\S\2 CO(cubed) 3.0 l/min CI(cubed) 1.7 l/min/m\S\2 SV(cubed) 51.1 ml SI(cubed) 29.1 ml/m\S\2 Ao root diam 3.4 cm Ao root area 9.0 cm\S\2 ACS 1.7 cm LA dimension 3.4 cm LA/Ao 1.0 LVAd ap4 28.9 cm\S\2 LVLd ap4 7.8 cm EDV(MOD-sp4) 89.0 ml LVAs ap4 16.0 cm\S\2 LVLs ap4 5.9 cm ESV(MOD-sp4) 36.0 ml EF(MOD-sp4) 59.6 % LVAd ap2 26.1 cm\S\2 LVLd ap2 7.6 cm EDV(MOD-sp2) 74.0 ml LVAs ap2 12.3 cm\S\2 LVLs ap2 5.9 cm ESV(MOD-sp2) 22.0 ml EF(MOD-sp2) 70.3 % CO(MOD-sp4) 3.1 l/min CI(MOD-sp4) 1.7 l/min/m\S\2 SV(MOD-sp4) 53.0 ml SI(MOD-sp4) 30.2 ml/m\S\2 CO(MOD-sp2) 3.0 l/min CI(MOD-sp2) 1.7 l/min/m\S\2 SV(MOD-sp2) 52.0 ml SI(MOD-sp2) 29.6 ml/m\S\2 Doppler Measurements and Calculations MV E max yasmeen 80.0 cm/sec MV A max yasmeen 89.8 cm/sec MV E/A 0.89 MV P1/2t max yasmeen 86.9 cm/sec MV P1/2t 84.9 msec MVA(P1/2t) 2.6 cm\S\2 MV dec slope 299.8 cm/sec\S\2 MV dec time 0.21 sec Ao V2 max 137.0 cm/sec Ao max PG 7.5 mmHg Ao max PG (full) 2.5 mmHg LV V1 max PG 5.0 mmHg LV V1 max 112.0 cm/sec PA V2 max 83.7 cm/sec PA max PG 2.8 mmHg
--- NOTE | 2016-11-22 11:20 | Discharge Instructions ---
Discharge Instructions Date of Service Nov 22, 2016. Admission Reason for Admission: Facial Numbness Discharge Discharge Diagnosis / Problem: TIA (transient ischemic attack) Discharge Goals Goal(s): Decrease discomfort, Improve function, Increase independence, Improve disease control Activity Recommendations Activity Limitations: resume your previous activity Lifting Limitations: gradually increase as tolerated Exercise/Sports Limitations: gradually increase as tolerated May Resume Sexual Activity: when tolerated Shower/Bathe: no limitations Driving or Machine Use: resume 1 day after discharge . Instructions / Follow-Up Instructions / Follow-Up You were admitted to [facility] with facial numbness, arm numbness and diagnosed with Transient ischemic attack (TIA) . During your stay here you were treated by holding your beta stas. Your blood pressure and rate improved during her stay here. Your symptoms resolved. - propanolol has been CHANGED! You should not take the propranolol ER 80 mg daily, INSTEAD take propranolol 20 mg twice daily - You were started on aspirin and Lipitor for elevated cholesterol and to reduce the risk of possible TIA or stroke in the future. Imaging studies which were completed include: MRI of the brain/head which was normal. Ultrasound of the carotid arteries was completed and negative for stenosis ( occlusion or partial occlusion). The ultrasound showed 2 small right thyroid nodules which should be followed up by your primary physician. Echocardiogram was completed showing no wall motion or valvular abnormalities , with grade 1 (mild) diastolic dysfunction. Continue taking all medications as prescribed. Follow-up with primary care provider within one week of discharge. Current Hospital Diet Patient's current hospital diet: AHA Diet (Heart Healthy) Discharge Diet Recommended Diet: AHA Diet (Heart Healthy) Procedures Procedures Performed: MRI Brain/Head Carotid Dopplers Echocardiogram Pending Studies Studies pending at discharge: no Laboratory Results Hemoglobin A1c Test 11/21/16 17:10 Range/Units Estimated Average Glucose 117 mg/dl Hemoglobin A1c 5.7 H 4.5-5.6 % Lipid Panel Test 11/22/16 05:40 Range/Units Triglycerides Level 160 H 0-150 mg/dl Cholesterol Level 204 H 0-200 mg/dl HDL Cholesterol 54 mg/dl Cholesterol/HDL Ratio 3.8 LDL Cholesterol, Calculated 118 mg/dl Medical Emergencies . Who to Call and When: Medical Emergencies: If at any time you feel your situation is an emergency, please call 911 immediately. . Non-Emergent Contact Non-Emergency issues call your: Primary Care Provider Call Non-Emergent contact if: you have a fever, you have any medication questions If you developed chest pain, shortness of breath, headache, dizziness, lightheadedness, flutter, palpitation, worsening weakness, slurred speech, increasing numbness in face or arm or any other part of the body, or if you have other concerns with your health. . Past History Medical & Surgical History: (1) TIA (transient ischemic attack) (2) Hypertension Nos (3) Diverticulosis Colon (W/O Ment Of Hemorrhage) (4) Personal History Of Colonic Polyps (5) Personal History Oth Spec Digestive System Disease (6) Facial numbness (7) Bradycardia . "Provider Documentation" section prepared by Bisi Jules. VTE Core Measure Inpt VTE Proph given/why not?: Unfractionated heparin SQ, T.E.D. Stockings, SCD 's
[2016-11-22 11:26] VITALS: BP 139/86; PULSE 78; O2SAT 91
--- NOTE | 2016-11-22 11:35 | Discharge Summary ---
Discharge Summary Date of Service Nov 22, 2016. (Mehreen Jules PA-C) Discharge Summary Admission Date: Nov 21, 2016 at 19:52 Discharge Date: Nov 22, 2016 Discharge Disposition: Home Principal Diagnosis: TIA Problems/Secondary Diagnoses: Hypertension, depression, anxiety, symptomatic bradycardia. Immunizations: Have You Had Influenza Vaccine: Yes History of Tetanus Vaccine?: Yes History of Pneumococcal: Yes Pneumococcal Date: May 30, 2014 History of Hepatitis B Vaccine: Unknown Procedures: HEAD CT NONCONTRAST CT DOSE: 537.48 mGy.cm HISTORY: Mental status change Stroke TECHNIQUE: Multiaxial CT images of the head were performed without the use of intravenous contrast. Comparison: None. Findings: The paranasal sinuses and mastoid air cells are clear. The calvarium and skull base are intact. The ventricles and sulci are within normal limits. There is no mass, hematoma, midline shift, or acute infarct. Impression: No acute intracranial abnormality. Electronically signed by: Scot Baker M.D. 11/21/2016 5:33 PM CHEST ONE VIEW PORTABLE CLINICAL HISTORY: Stroke mental status change COMPARISON STUDY: 09/18/2014 FINDINGS: The bones soft tissues and hemidiaphragms are normal. The cardiomediastinal silhouette is normal. The lungs are clear. The pulmonary vasculature is normal. IMPRESSION: Negative chest. Electronically signed by: Scot Baker M.D. 11/21/2016 5:26 PM Dictated Date/Time: 11/21/2016 5:26 PM The status of this report is Signed. Echocardiogram 11/22/16 * -- Conclusions -- * 1. Normal LV size and wall thickness. * 2. Normal LV systolic function. LVEF 60-65%. No regional wall motion abnormlities. * 3. Normal RV size and function. * 4. No significant valvular pathology. * 5. Negative saline contrast study. No cardioembolic sources identified. * 6. Grade I diastolic dysfunction. * 7. No prior studies for comparison. NECK MRA HISTORY: Mental status change tia TECHNIQUE: Cnig-vj-dyxzpk and gadolinium-enhanced MRA of the neck was performed both before and after the intravenous administration of contrast. All measurements were calculated based on NASCET criteria. COMPARISON STUDY: None. FINDINGS: The aortic arch and proximal great vessels are widely patent. Mild atherosclerotic change of the carotid bifurcations. A high-grade stenotic process is not appreciated. Vertebral basilar system is unremarkable. IMPRESSION: No significant stenosis, occlusion, or dissection identified within the carotid or vertebral arteries. Minimal to very mild plaque formation bilaterally Electronically signed by: Scot Baker M.D. 11/22/2016 1:13 PM Dictated Date/Time: 11/22/2016 1:12 PM The status of this report is Signed. MR ANGIOGRAPHY OF THE [place] NO CONTRAST CLINICAL HISTORY: Transient ischemic attack. Facial numbness. COMPARISON STUDY: None. A 3-D xvqz-ne-ifaize MR angiographic sequence of the [place] was performed. Both the source and projection images were reviewed. There is no evidence of major intracranial branch occlusion. There is no evidence of intracranial stenosis. There are no lesions suspicious for aneurysm. IMPRESSION: Unremarkable MR angiography of the [place]. Electronically signed by: Chilo Martin M.D. 11/22/2016 12:43 PM Dictated Date/Time: 11/22/2016 12:41 PM The status of this report is Signed. Draft = Not yet reviewed or approved by Radiologist. Signed = Reviewed and approved by Radiologist. Brain MRI WITH AND WITHOUT CONTRAST HISTORY: Facial numbness. TECHNIQUE: Multiplanar multisequence MRI of the brain was performed both before and after the intravenous administration of contrast. COMPARISON STUDY: Head CT 11/21/2016. FINDINGS: Punctate focus of apparent restricted diffusion within the left cerebellar hemisphere on image 5 does not demonstrate loss of signal on the ADC map and therefore favors T2 shine through. Otherwise, no areas of restricted diffusion to suggest acute infarction. The midline structures are intact. A 2 cm retention cyst within the right maxillary sinus. The mastoid air cells are clear. The orbits are unremarkable. There is no mass, hematoma, or midline shift. The major vascular flow-voids at the skull base are well-maintained. There are few scattered punctate foci of T2 hyperintensity seen within the periventricular and subcortical white matter. These are nonspecific but favor mild microvascular ischemic change. No abnormal enhancement. IMPRESSION: No acute intracranial abnormality. Scattered foci of T2 hyperintensity seen within the periventricular and subcortical white matter are nonspecific but favor mild microvascular ischemic change. Electronically signed by: Lawson López M.D. 11/22/2016 1:17 PM Dictated Date/Time: 11/22/2016 1:10 PM The status of this report is Signed. Draft = Not yet reviewed or approved by Radiologist. Signed = Reviewed and approved by Radiologist. BILATERAL CAROTID DOPPLER STUDY HISTORY: Tia symptoms, categorize level/if stenosis COMPARISON: Neck MRA 11/22/2016. TECHNIQUE: Real-time, grayscale, and color Doppler sonography of the carotid arteries was performed. Imaging reviewed in the transverse and longitudinal planes. All measurements were calculated based on NASCET criteria. FINDINGS: Antegrade flow is seen in the bilateral vertebral arteries. The brachial pressures are hemodynamically similar. There are 2 right-sided thyroid nodules which measure 3.0 and 2.3 cm. Mild calcified plaque within the right carotid bulb. The peak systolic velocity within the right ICA is 64 cm/s. The right systolic ratio is 1.2. The peak systolic velocity within the left ICA is 52 cm/s. The left systolic ratio is 1.0. IMPRESSION: No hemodynamically significant stenosis seen within the carotid arteries. There are 2 right-sided thyroid nodules. Ultrasound-guided fine-needle aspiration can be performed for further evaluation on a nonemergent basis. Electronically signed by: Lawson López M.D. 11/22/2016 1:38 PM Dictated Date/Time: 11/22/2016 1:35 PM The status of this report is Signed. Draft = Not yet reviewed or approved by Radiologist. Consultations: None (Mehreen Jules PA-C) Medication Reconciliation New Medications: Propranolol (Inderal) 20 Mg Tab 20 MG PO BID for 30 Days, #60 TAB Aspirin (Aspirin) 325 Mg Ectab 325 MG PO QAM for 30 Days, #30 DOSE Atorvastatin (Atorvastatin Calcium) 40 Mg Tab 40 MG PO QAM for 30 Days, #30 TAB Continued Medications: Sertraline HCl (Sertraline HCl) 25 Mg Tab 25 MG PO DAILY, #90 Discontinued Medications: Aspirin (Aspirin Ec) 81 Mg Tab 81 MG PO DAILY Cholecalciferol (Vitamin D) 400 Unit Tab 400 UNITS PO PRN for supplement Cyanocobalamin (Vitamin B-12) 500 Mcg Sub 500 MCG PO DAILY Propranolol Hcl (Propranolol Hcl Er) 80 Mg Cap 80 MG PO DAILY, #90 Discharge Exam Subjective Pt evaluation today including: conversation w/ patient, physical exam, chart review, lab review, review of studies, review of inpatient medication list Pain: none PO Intake: Good Voiding: no voiding problems The patient was seen and examined this morning. Pt reports doing well this morning. She has no complaints. Denies any symptoms like she experienced yesterday. She denies any facial numbness or tingling, no focal weakness or changes in vision. She had echocardiogram already, and will plan for carotid dopplers today. ROS: 10 point systems reviewed and otherwise negative (Other than listed above) Physical Exam: General Appearance: WD/WN, no apparent distress, + pertinent finding ( appears much younger than stated age) Eyes: PERRL, EOMI ENT: hearing grossly normal, pharynx normal Neck: supple, no JVD Respiratory/Chest: chest non-tender, lungs clear, no respiratory distress, no accessory muscle use Cardiovascular: regular rate, rhythm, normal peripheral pulses Abdomen / GI: normal bowel sounds, non tender, soft, no organomegaly Extremities: normal inspection, no calf tenderness, normal capillary refill , no pedal edema Neurologic/Psychiatric: alert, normal reflexes, oriented x 3 Skin: normal color, warm/dry (Mehreen Jules, PA-Philip) Hospital Course H&P per Eduard Simon, Resident, . History of Present Illness Source: patient, family 77 yo F p/w hx of generalized weakness and transient facial numbness. She reports feeling an "odd feeling" that started this morning. including weakness, dizziness though she denies syncope, vertigo symptoms. Around 2PM She also noticed numbness Left side of face that lasted less than a minute, called for . found was sitting on floor. denies confusion, LOC. Patient took a nap for an hr then went to clinic with PCP Dr. Crooks around 3: 45 PM AT Clinic, EKG showed sinus bradycardia at a rate of 47 and later sent her to ED. While In ED , patient experience episode of Rt Jaw numbness and stiffness again with transient double vision, which lasted less than a minute. Patient denies any further symptoms. no cp , no sob, no palpitation, no syncope, no paroxysmal nocturnal dyspnea, no orthopnea. Vital Signs Date Time Temp Pulse Resp B/P Pulse Ox O2 Delivery O2 Flow Rate FiO2 11/21/16 18:28 62 13 93 11/21/16 17:59 55 153/80 93 Room Air 64 147/88 68 174/89 11/21/16 17:58 66 18 91 11/21/16 17:57 147/88 174/89 11/21/16 17:56 153/80 11/21/16 17:15 96 Room Air 11/21/16 17:14 61 11/21/16 17:01 36.9 74 18 193/98 100 Room Air General Appearance: WD/WN, no apparent distress Head: normocephalic, atraumatic Eyes: normal inspection, PERRL, EOMI ENT: normal ENT inspection Neck: supple, no adenopathy, no carotid bruits Respiratory/Chest: chest non-tender, lungs clear, normal breath sounds, no respiratory distress Cardiovascular: regular rate, rhythm, no edema, no murmur, normal peripheral pulses Abdomen/GI: normal bowel sounds, non tender, soft, no organomegaly Extremities/Musculoskelatal: no calf tenderness, no pedal edema 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 TIA with transient facial numbness and visual disturbance - CT Head reviewed and is negative - MRI Head with and w/o contrast: IMPRESSION: No acute intracranial abnormality. Scattered foci of T2 hyperintensity seen within the periventricular and subcortical white matter are nonspecific but favor mild microvascular ischemic change. - MRI brain: IMPRESSION: Unremarkable MR angiography of the [place]. - Neck MRA: IMPRESSION: No significant stenosis, occlusion, or dissection identified within the carotid or vertebral arteries. Minimal to very mild plaque formation bilaterally - Propranolol on hold ( ER 80 mg daily); HR has trended up from the 50s into the 80s, and BP elevated up into 150-160s. -likely ER propanolol is wearing off. Will restart on half her [employer] dosage at 40 mg daily. Pt will need follow up with PCP within 1 week. - 2D Echo: * -- Conclusions -- * 1. Normal LV size and wall thickness. * 2. Normal LV systolic function. LVEF 60-65%. No regional wall motion abnormlities. * 3. Normal RV size and function. * 4. No significant valvular pathology. * 5. Negative saline contrast study. No cardioembolic sources identified. * 6. Grade I diastolic dysfunction. * 7. No prior studies for comparison. - carotid dopplers ordered- IMPRESSION: No hemodynamically significant stenosis seen within the carotid arteries. There are 2 right-sided thyroid nodules. Ultrasound-guided fine-needle aspiration can be performed for further evaluation on a nonemergent basis. - Lipid panel completed and she is high with total cholesterol >200, elevated triglycerides - continue atorvastatin 40 mg daily - Pt was started on full dose asa 325 mg daily, should continue upon discharge Sinus Bradycardia -Resolved after stop of beta stas, will restart beta stas at a lower dosage, 40 mg daily instead of 80. - Pt initially had a rate of 47 while in clinic before arrival HTN - Propranolol held during inpatient stay. Restarted as above Depression//Anxiety Sertraline 25 mg po daily DVT ppx: Continue heparin sq Disposition: from home, discharge today, Follow up with PCP within 1 week. Total Time Spent: Greater than 30 minutes This includes examination of the patient, discharge planning, medication reconciliation, and communication with other providers. (Mehreen Jules PA-C) FLASH Physician Supervision Note: I interviewed and examined the patient. Discussed with Mehreen Jules PAC and agree with findings and plan as documented in the note. Any exceptions or clarifications are listed here: None Pt has resolution of TIA symptoms and bradycardia ( with holding b stas), negative work up vitals reviewed ans stable car is regular lungs are clear neuro is a&ox3, non focal agree to increase aspirin, decrease b stas and continue statin with close outpt follow up Documented By: Bladimir Fernandes (Bladimir Fernandes M.D.) Discharge Instructions Please refer to the electronic Patient Visit Report (Discharge Instructions) for additional information. (Mehreen Jules PA-C) Follow-Up Follow up with your Primary Care Provider within 1 week. (Mehreen Jules PA-C) Additional Copies To Jamal Garcia M.D.
--- NOTE | 2016-11-22 12:45 | DIAGNOSTIC IMAGING REPORT ---
MR ANGIOGRAPHY OF THE [place] NO CONTRAST CLINICAL HISTORY: Transient ischemic attack. Facial numbness. COMPARISON STUDY: None. A 3-D uvrv-fu-fahaun MR angiographic sequence of the [place] was performed. Both the source and projection images were reviewed. There is no evidence of major intracranial branch occlusion. There is no evidence of intracranial stenosis. There are no lesions suspicious for aneurysm. IMPRESSION: Unremarkable MR angiography of the [place] of [place]. Electronically signed by: Chilo Martin M.D. 11/22/2016 12:43 PM Dictated Date/Time: 11/22/2016 12:41 PM
--- NOTE | 2016-11-22 13:15 | DIAGNOSTIC IMAGING REPORT ---
NECK MRA HISTORY: Mental status change tia TECHNIQUE: Lmty-gj-mkmefk and gadolinium-enhanced MRA of the neck was performed both before and after the intravenous administration of contrast. All measurements were calculated based on NASCET criteria. COMPARISON STUDY: None. FINDINGS: The aortic arch and proximal great vessels are widely patent. Mild atherosclerotic change of the carotid bifurcations. A high-grade stenotic process is not appreciated. Vertebral basilar system is unremarkable. IMPRESSION: No significant stenosis, occlusion, or dissection identified within the carotid or vertebral arteries. Minimal to very mild plaque formation bilaterally Electronically signed by: Scot Baker M.D. 11/22/2016 1:13 PM Dictated Date/Time: 11/22/2016 1:12 PM
--- NOTE | 2016-11-22 13:18 | DIAGNOSTIC IMAGING REPORT ---
Brain MRI WITH AND WITHOUT CONTRAST HISTORY: Facial numbness. TECHNIQUE: Multiplanar multisequence MRI of the brain was performed both before and after the intravenous administration of contrast. COMPARISON STUDY: Head CT 11/21/2016. FINDINGS: Punctate focus of apparent restricted diffusion within the left cerebellar hemisphere on image 5 does not demonstrate loss of signal on the ADC map and therefore favors T2 shine through. Otherwise, no areas of restricted diffusion to suggest acute infarction. The midline structures are intact. A 2 cm retention cyst within the right maxillary sinus. The mastoid air cells are clear. The orbits are unremarkable. There is no mass, hematoma, or midline shift. The major vascular flow-voids at the skull base are well-maintained. There are few scattered punctate foci of T2 hyperintensity seen within the periventricular and subcortical white matter. These are nonspecific but favor mild microvascular ischemic change. No abnormal enhancement. IMPRESSION: No acute intracranial abnormality. Scattered foci of T2 hyperintensity seen within the periventricular and subcortical white matter are nonspecific but favor mild microvascular ischemic change. Electronically signed by: Lawson López M.D. 11/22/2016 1:17 PM Dictated Date/Time: 11/22/2016 1:10 PM
[2016-11-22] MEDS ORDERED: ASPEC325 PO (13:39)
[2016-11-22] MEDS ORDERED: PROP20TA67 PO (13:39)
[2016-11-22] MEDS ORDERED: LPT40 PO (13:39)
--- NOTE | 2016-11-22 13:39 | DIAGNOSTIC IMAGING REPORT ---
BILATERAL CAROTID DOPPLER STUDY HISTORY: Tia symptoms, categorize level/if stenosis COMPARISON: Neck MRA 11/22/2016. TECHNIQUE: Real-time, grayscale, and color Doppler sonography of the carotid arteries was performed. Imaging reviewed in the transverse and longitudinal planes. All measurements were calculated based on NASCET criteria. FINDINGS: Antegrade flow is seen in the bilateral vertebral arteries. The brachial pressures are hemodynamically similar. There are 2 right-sided thyroid nodules which measure 3.0 and 2.3 cm. Mild calcified plaque within the right carotid bulb. The peak systolic velocity within the right ICA is 64 cm/s. The right systolic ratio is 1.2. The peak systolic velocity within the left ICA is 52 cm/s. The left systolic ratio is 1.0. IMPRESSION: No hemodynamically significant stenosis seen within the carotid arteries. There are 2 right-sided thyroid nodules. Ultrasound-guided fine-needle aspiration can be performed for further evaluation on a nonemergent basis. Electronically signed by: Lawson López M.D. 11/22/2016 1:38 PM Dictated Date/Time: 11/22/2016 1:35 PM
[2016-11-22 13:43] VITALS: BP 139/86; PULSE 78; TEMP 36.9; O2SAT 91
[2016-11-22] MEDS ORDERED: IV FLUIDS COMPLETED PRN (14:00)
[2017-03-30] MEDS ORDERED: HYDR500C3 PO (11:26)
[2017-03-30] MEDS ORDERED: SERT25TA PO (11:26)
[2017-03-30] MEDS ORDERED: CHOL1000 PO (11:26)
[2017-03-30] MEDS ORDERED: PROP20TA67 PO (11:26)
[2017-03-30] MEDS ORDERED: ATOR-24 PO (11:26)
[2017-03-30] MEDS ORDERED: CYAN100020 PO (11:26)
[2017-04-30] MEDS ORDERED: PRED1SUS3 OPR (14:45)
== END 2016-11-22 13:58 | disposition home or self-care (01) | DRG 69 ==
LOC: ENRESERVDT → ENRESERVTM → C.EDB 16:59 → C.2E 19:52
PROVIDERS: ADMIT Internal Medicine; ATTEND Internal Medicine
DX: G45.9 Transient cerebral ischemic attack, unspecified (principal); F41.9 Anxiety disorder, unspecified; F32.9 Major depressive disorder, single episode, unspecified; R00.1 Bradycardia, unspecified; H53.2 Diplopia; I10 Essential (primary) hypertension; R20.0 Anesthesia of skin; R53.1 Weakness; R55 Syncope and collapse; R94.31 Abnormal electrocardiogram [ECG] [EKG]; Z87.891 Personal history of nicotine dependence; Z79.82 Long term (current) use of aspirin; Z79.899 Other long term (current) drug therapy; Z87.19 Personal history of other diseases of the digestive system; Z90.49 Acquired absence of other specified parts of digestive tract

== ENCOUNTER → 2017-03-08 | Outpatient (CLI) | payer BC ==
[~2017-03-08] MED LIST changes: +ASPEC325 PO; -ASPI81TA28 PO; +ATOR-24 PO; +CHOL1000 PO; -CHOL400T PO; +CYAN100020 PO; +HYDR500C3 PO; +LPT40 PO; -MULT-513 PO; +PRED1SUS3 OPR; +PROP20TA67 PO; -PROP80CA PO; +SERT25TA PO
[2017-03-08 16:41] LABS: BASO % 0.6 %; BASO ABS # 0.06 K/uL (0-0.2); COMPLETE YES; EOS % 5.6 %; HEMATOCRIT 45.6 % (37-47); IG% 0.2 %; LYMPH ABS # 1.37 K/uL (1.2-3.4); MEAN CELL VOLUME 94.4 fL (80-100); MEAN CORPUSCULAR HEMOGLOBIN 31.1 pg (25-34); MEAN CORPUSCULAR HGB CONC 32.9 g/dl (32-36); MEAN PLATELET VOLUME 12.3 fL (7.4-10.4); MONO % 12.4 %; NEUT % 67.2 %; PLATELET COUNT 618 K/uL (130-400); RED BLOOD COUNT 4.83 M/uL (4.2-5.4); WHITE BLOOD COUNT 9.79 K/uL (4.8-10.8)
== END | disposition home or self-care (01) ==
LOC: C.LABBC 15:09
PROVIDERS: ATTEND Internal Medicine
DX: D47.3 Essential (hemorrhagic) thrombocythemia (principal)

== ENCOUNTER → 2017-04-24 | Day surgery (SDC) | payer BC ==
[2017-03-30 11:27] VITALS: Ht 157.5 cm; Wt 65.9 kg
[~2017-04-24] VITALS: Ht 157.5 cm; Wt 65.9 kg
[~2017-04-24] MED LIST changes: +500ML BSS 0.3ML EPI 1:1000PF IRRIG ONE; +ACETAMINOPHEN 325 MG TAB PO PRN; +AMVISC PLUS 0.8ML SYRINGE INT OCU ONE; +ATROPINE SULFATE 0.1 MG/ML 5ML SYR IV PRN; +BSS FLUSH ONE; +EpHEDrine SULFATE INJ 50 MG/ML AMP IV PRN; +EpINEphrine INJ 1MG/ML AMP 1 MG/ML AMP ONE; +LACTATED RINGER'S 1000ML 500 ML IV SCH; +LIDOCAINE 3.5% OPH GEL PER APPLICATION CHARGE ONE; +LIDOCAINE HCL 1% MPF 2 ML VIAL ONE; -LPT40 PO; +MIDAZOLAM HCL 1 MG/ML 2ML VIAL ONE; +OCUCOAT 1 ML SOLN IO ONE; +POVIDONE-IODINE OP SOLN 30 ML BTL ONE; +PROPARACAINE 0.5% OP SOLN PER DROP CHARGE OPR SCH; -SERT1TAB88 PO; +TOBRAMYCIN/DEXAMETHASONE OPH OINT PER APPLN CHARGE ONE
[2017-04-24] MEDS: PHENYLEPHRINE HCL 2.5% OP SOLN PER DROP CHARGE OPR SCH ×2 (10:39→10:48)
[2017-04-24] MEDS: TROPICAMIDE 1% OP SOLN PER DROP CHARGE OPR SCH ×2 (10:42→10:49)
[2017-04-24] MEDS: CYCLOPENTOLATE HCL 1% OP SOLN PER DROP CHARGE OPR SCH ×2 (10:43→10:50)
[2017-04-24] MEDS: KETOROLAC 0.5% OP SOLN PER DROP CHARGE OPR SCH ×2 (10:45→10:51)
[2017-04-24] MEDS: GATIFLOXACIN OP SOLN PER DROP CHARGE OPR SCH ×2 (10:47→11:02)
--- NOTE | 2017-04-24 10:54 | History & Physical Bridge - SC ---
H&P Re-Evaluation Bridge Note: I have examined the patient, reviewed the History & Physical and in the interval since the performance of the History & Physical I have noted the following changes of clinical significance: No changes noted
--- NOTE | 2017-04-24 11:42 | [facility] Operative Report ---
Operative Report Date of Service Apr 24, 2017. Operative Report 1. PREOPERATIVE DIAGNOSIS: Cataract of the right eye. 2. POSTOPERATIVE DIAGNOSIS: Same. 3. PROCEDURE: Phacoemulsification with intraocular lens implantation of the right eye. SURGEON: Dr. Javier Tena. ANESTHESIA: Topical Lidocaine gel, 1% Non- Preserved intracameral Lidocaine, and monitored intravenous sedation. INDICATIONS FOR THE PROCEDURE: The patient is a 77 - year-old female with a history of cataract of the right eye causing significant visual impairment. The details of the proposed procedure were explained to the patient who asked appropriate questions and following discussion of all risks, benefits and alternatives agreed to have the procedure done. 4. OPERATION AND FINDINGS: DESCRIPTION OF PROCEDURE: After informed consent was obtained, the patient was brought to the Operating Room at the [facility]. The patient was placed in a supine position and then the right eye was prepped and draped in the usual sterile fashion for intraocular surgery. A drop of topical Lidocaine gel was placed in the operative eye. A wire lid speculum was then placed in the fornices. A corneal paracentesis was then created temporally. The Non-Preserved Lidocaine was then instilled into the anterior chamber. The anterior chamber was then pressurized with viscoelastic. A 2.0 mm clear corneal incision was then created temporally. A cystotome was inserted into the anterior chamber and used to create a tear in the anterior lens capsule. This capsular tear was then used to create a small flap and the flap was dragged in a counterclockwise direction in order to create a continuous curvilinear capsulorrhexis. Hydrodissection was accomplished with balanced salt solution. Phacoemulsification of the lens nucleus was then performed in a standard cluipl-dtv-bwumddo technique. The phaco time was 30 seconds with an average power of 13 %. The remaining cortical material was removed using irrigation aspiration. The capsular bag was then filled with viscoelastic. A [employer]ch [employer] Lomb MI60L +21.0 diopters lens was then loaded into the injector and injected into the capsular bag. The remaining viscoelastic was removed with the irrigation aspiration handpiece. The wound was hydrated and then checked and found to be watertight. The intraocular pressure was checked and found to be adequate. The wire lid speculum was removed and the patient's face was cleaned and dried. TobraDex ointment was placed in the inferior fornix. The patient was discharged to the Recovery Room having tolerated the procedure well. There were no complications. The patient will be seen tomorrow in the office for follow-up. I attest to the content of the Intraoperative Record and any orders documented therein. Any exceptions are noted below.
--- NOTE | 2017-04-24 11:42 | Discharge Instructions-SurgCtr ---
Discharge Instructions Date of Service Apr 24, 2017. Visit Reason for Visit: Right Cataract Discharge Discharge Diagnosis / Problem: cataract Discharge Goals Goal(s): Improve function Activity Recommendations Activity Limitations: per Instructions/Follow-up section Anesthesia . Post Anesthesia Instructions: If you have had General Anesthesia or IV Sedation: * Do not drive today. * Resume driving when surgeon permits. * Do not make important decisions or sign legal documents today. * Call surgeon for: 1. Temperature elevations greater than 101 degrees F. 2. Uncontrollable pain. 3. Excessive bleeding. 4. Persistent nausea and vomiting. 5. Medication intolerance (nausea, vomiting or rash). * For nausea and vomiting use only clear liquids such as: tea, soda, bouillon until nausea subsides, then gradually increase diet as tolerated. * If you have any concerns or questions, call your surgeon's office. If physician is unavailable and it is an emergency, call 911 or go to the nearest emergency room. . Instructions / Follow-Up Instructions / Follow-Up ACTIVITY RECOMMENDATIONS: * No strenuous lifting, jogging or running for 4 days * No swimming or yard work for 1 week. * Limited bending is permitted, such as putting on shoes. RETURN TO SCHOOL/WORK: No work until seen by physician in office. MEDICATIONS: Resume previous medications unless instructed otherwise by your surgeon. This includes eye drops for glaucoma. Zymaxid/Gatifloxacin (martinez cap) - one drop every 2 hours until bedtime Nevanac/Ilevro/Prolensa/Ketorolac (rhodes cap) - one drop every 4 hours until bedtime Prednisolone/Durezol (white/pink cap, SHAKE WELL) - one drop every 2 hours until bedtime Starting tomorrow - all 3 drops every 4 hours until seen in the office Optive drops - as needed for discomfort SPECIAL CARE INSTRUCTIONS: * Wear eyeshield when sleeping, for four nights. * You may wear your own glasses or sunglasses while awake. * You may read or watch TV * You may shower and wash your face, but be gentle around the eye and pat dry. * Blurry vision and mild irritation are normal. * Call office if pain is more severe or vision becomes dark at . FOLLOW UP VISIT: Follow-up with Dr Tena tomorrow. Diet Recommendations Home Diet: resume previous diet Procedures Procedures Performed: Right Cataract Phacoemulsification With Intraocular Lens Implant Pending Studies Studies pending at discharge: no Medical Emergencies . Who to Call and When: Medical Emergencies: If at any time you feel your situation is an emergency, please call 911 immediately. . Non-Emergent Contact Non-Emergency issues call your: [employer] . . "Provider Documentation" section prepared by Javier Tena. .
[2017-04-24 11:45] VITALS: TEMP 36.7
[2017-04-24 12:01] VITALS: BP 121/72; PULSE 52; O2SAT 94
--- NOTE | 2017-04-24 12:05 | Anesthesiology Progress Note ---
Anesthesia Post Op Note Date & Time Apr 24, 2017 at 12:04 Vital Signs Pain Intensity: 0 Vital Signs Past 12 Hours Date Time Temp Pulse Resp B/P (MAP) Pulse Ox O2 Delivery O2 Flow Rate FiO2 04/24/17 12:01 52 16 121/72 (88) 94 Room Air 04/24/17 11:45 36.7 59 16 107/70 (82) 93 Room Air 04/24/17 10:26 36.5 54 16 126/81 (96) 95 Room Air Notes Mental Status: alert / awake / arousable, participated in evaluation Pt Amnestic to Procedure: No Nausea / Vomiting: adequately controlled Pain: adequately controlled Airway Patency, RR, SpO2: stable & adequate BP & HR: stable & adequate Hydration State: stable & adequate Anesthetic Complications: no major complications apparent degree of amnesia as expected for MAC
== END | disposition home or self-care (01) ==
LOC: X.SURG 09:58
PROVIDERS: ATTEND Ophthalmology
DX: H26.9 Unspecified cataract (principal); D47.3 Essential (hemorrhagic) thrombocythemia; J45.909 Unspecified asthma, uncomplicated; R73.9 Hyperglycemia, unspecified; E78.5 Hyperlipidemia, unspecified; K21.9 Gastro-esophageal reflux disease without esophagitis; F32.9 Major depressive disorder, single episode, unspecified; Z86.73 Personal history of transient ischemic attack (TIA), and cerebral infarction without residual deficits; Z87.891 Personal history of nicotine dependence; Z79.899 Other long term (current) drug therapy

== ENCOUNTER → 2017-05-15 | Day surgery (SDC) | payer BC ==
[2017-04-30 14:45] VITALS: Ht 157.5 cm; Wt 65.9 kg
[~2017-05-15] VITALS: Ht 157.5 cm; Wt 65.9 kg
[~2017-05-15] MED LIST changes: +FENTANYL CITRATE INJ 50 MCG/1 ML 2 ML VIAL ONE; +PROPARACAINE 0.5% OP SOLN PER DROP CHARGE OPL SCH; -PROPARACAINE 0.5% OP SOLN PER DROP CHARGE OPR SCH
[2017-05-15] MEDS: PHENYLEPHRINE HCL 2.5% OP SOLN PER DROP CHARGE OPL SCH ×2 (10:22→10:32)
[2017-05-15] MEDS: TROPICAMIDE 1% OP SOLN PER DROP CHARGE OPL SCH ×2 (10:23→10:33)
[2017-05-15] MEDS: CYCLOPENTOLATE HCL 1% OP SOLN PER DROP CHARGE OPL SCH ×2 (10:24→10:35)
[2017-05-15] MEDS: KETOROLAC 0.5% OP SOLN PER DROP CHARGE OPL SCH ×2 (10:25→10:36)
[2017-05-15] MEDS: GATIFLOXACIN OP SOLN PER DROP CHARGE OPL SCH ×2 (10:26→10:36)
--- NOTE | 2017-05-15 11:26 | Discharge Instructions-SurgCtr ---
Discharge Instructions Date of Service May 15, 2017. Visit Reason for Visit: Cataract Left Eye Discharge Discharge Diagnosis / Problem: cataract Discharge Goals Goal(s): Improve function Activity Recommendations Activity Limitations: per Instructions/Follow-up section Anesthesia . Post Anesthesia Instructions: If you have had General Anesthesia or IV Sedation: * Do not drive today. * Resume driving when surgeon permits. * Do not make important decisions or sign legal documents today. * Call surgeon for: 1. Temperature elevations greater than 101 degrees F. 2. Uncontrollable pain. 3. Excessive bleeding. 4. Persistent nausea and vomiting. 5. Medication intolerance (nausea, vomiting or rash). * For nausea and vomiting use only clear liquids such as: tea, soda, bouillon until nausea subsides, then gradually increase diet as tolerated. * If you have any concerns or questions, call your surgeon's office. If physician is unavailable and it is an emergency, call 911 or go to the nearest emergency room. . Instructions / Follow-Up Instructions / Follow-Up ACTIVITY RECOMMENDATIONS: * No strenuous lifting, jogging or running for 4 days * No swimming or yard work for 1 week. * Limited bending is permitted, such as putting on shoes. RETURN TO SCHOOL/WORK: No work until seen by physician in office. MEDICATIONS: Resume previous medications unless instructed otherwise by your surgeon. This includes eye drops for glaucoma. Zymaxid/Gatifloxacin (martinez cap) - one drop every 2 hours until bedtime Nevanac/Ilevro/Prolensa/Ketorolac (rhodes cap) - one drop every 4 hours until bedtime Prednisolone/Durezol (white/pink cap, SHAKE WELL) - one drop every 2 hours until bedtime Starting tomorrow - all 3 drops every 4 hours until seen in the office Optive drops - as needed for discomfort SPECIAL CARE INSTRUCTIONS: * Wear eyeshield when sleeping, for four nights. * You may wear your own glasses or sunglasses while awake. * You may read or watch TV * You may shower and wash your face, but be gentle around the eye and pat dry. * Blurry vision and mild irritation are normal. * Call office if pain is more severe or vision becomes dark at . FOLLOW UP VISIT: Follow-up with Dr Tena tomorrow. Diet Recommendations Home Diet: resume previous diet Procedures Procedures Performed: Left Cataract Phacoemulsification With Intraocular Lens Implant Pending Studies Studies pending at discharge: no Medical Emergencies . Who to Call and When: Medical Emergencies: If at any time you feel your situation is an emergency, please call 911 immediately. . 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 . "Provider Documentation" section prepared by Javier Tena. .
--- NOTE | 2017-05-15 11:27 | [facility] Operative Report ---
Operative Report Date of Service May 15, 2017. Operative Report 1. PREOPERATIVE DIAGNOSIS: Cataract of the left eye. 2. POSTOPERATIVE DIAGNOSIS: Same. 3. PROCEDURE: Phacoemulsification with intraocular lens implantation of the left eye. SURGEON: Dr. Javier Tena. ANESTHESIA: Topical Lidocaine gel, 1% Non- Preserved intracameral Lidocaine, and monitored intravenous sedation. INDICATIONS FOR THE PROCEDURE: The patient is a 77 - year-old female with a history of cataract of the left eye causing significant visual impairment. The details of the proposed procedure were explained to the patient who asked appropriate questions and following discussion of all risks, benefits and alternatives agreed to have the procedure done. 4. OPERATION AND FINDINGS: DESCRIPTION OF PROCEDURE: After informed consent was obtained, the patient was brought to the Operating Room at the [facility]. The patient was placed in a supine position and then the left eye was prepped and draped in the usual sterile fashion for intraocular surgery. A drop of topical Lidocaine gel was placed in the operative eye. A wire lid speculum was then placed in the fornices. A corneal paracentesis was then created temporally. The Non-Preserved Lidocaine was then instilled into the anterior chamber. The anterior chamber was then pressurized with viscoelastic. A 2.0 mm clear corneal incision was then created temporally. A cystotome was inserted into the anterior chamber and used to create a tear in the anterior lens capsule. This capsular tear was then used to create a small flap and the flap was dragged in a counterclockwise direction in order to create a continuous curvilinear capsulorrhexis. Hydrodissection was accomplished with balanced salt solution. Phacoemulsification of the lens nucleus was then performed in a standard [id number] technique. The phaco time was 30 seconds with an average power of 13 %. The remaining cortical material was removed using irrigation aspiration. The capsular bag was then filled with viscoelastic. A Bausch [employer] Lomb MI60L +21.0 diopters lens was then loaded into the injector and injected into the capsular bag. The remaining viscoelastic was removed with the irrigation aspiration handpiece. The wound was hydrated and then checked and found to be watertight. The intraocular pressure was checked and found to be adequate. The wire lid speculum was removed and the patient's face was cleaned and dried. TobraDex ointment was placed in the inferior fornix. The patient was discharged to the Recovery Room having tolerated the procedure well. There were no complications. The patient will be seen tomorrow in the office for follow-up. I attest to the content of the Intraoperative Record and any orders documented therein. Any exceptions are noted below.
[2017-05-15 11:29] VITALS: TEMP 36.6
--- NOTE | 2017-05-15 11:31 | Anesthesia Progress Nt - [facility] ---
Anesthesia Post Op Note Date & Time May 15, 2017 at 11:31 Vital Signs Pain Intensity: 0 Vital Signs Past 12 Hours Date Time Temp Pulse Resp B/P (MAP) Pulse Ox O2 Delivery O2 Flow Rate FiO2 05/15/17 10:07 36.5 55 16 163/79 (107) 98 Room Air Notes Mental Status: alert / awake / arousable, participated in evaluation Pt Amnestic to Procedure: Yes Nausea / Vomiting: adequately controlled Pain: adequately controlled Airway Patency, RR, SpO2: stable & adequate BP & HR: stable & adequate Hydration State: stable & adequate Anesthetic Complications: no major complications apparent
[2017-05-15 11:42] VITALS: BP 137/83; PULSE 51; O2SAT 93
== END | disposition home or self-care (01) ==
LOC: X.SURG 09:57
PROVIDERS: ATTEND Ophthalmology
DX: H26.9 Unspecified cataract (principal); R73.9 Hyperglycemia, unspecified; E78.5 Hyperlipidemia, unspecified; Z86.73 Personal history of transient ischemic attack (TIA), and cerebral infarction without residual deficits; Z79.899 Other long term (current) drug therapy; Z96.1 Presence of intraocular lens

== ENCOUNTER → 2017-09-28 | Outpatient (CLI) | payer BC ==
[~2017-09-28] MED LIST changes: -500ML BSS 0.3ML EPI 1:1000PF IRRIG ONE; -ACETAMINOPHEN 325 MG TAB PO PRN; -AMVISC PLUS 0.8ML SYRINGE INT OCU ONE; -ATROPINE SULFATE 0.1 MG/ML 5ML SYR IV PRN; -BSS FLUSH ONE; -EpHEDrine SULFATE INJ 50 MG/ML AMP IV PRN; -EpINEphrine INJ 1MG/ML AMP 1 MG/ML AMP ONE; -FENTANYL CITRATE INJ 50 MCG/1 ML 2 ML VIAL ONE; -LACTATED RINGER'S 1000ML 500 ML IV SCH; -LIDOCAINE 3.5% OPH GEL PER APPLICATION CHARGE ONE; -LIDOCAINE HCL 1% MPF 2 ML VIAL ONE; -MIDAZOLAM HCL 1 MG/ML 2ML VIAL ONE; -OCUCOAT 1 ML SOLN IO ONE; -POVIDONE-IODINE OP SOLN 30 ML BTL ONE; -PROPARACAINE 0.5% OP SOLN PER DROP CHARGE OPL SCH; -TOBRAMYCIN/DEXAMETHASONE OPH OINT PER APPLN CHARGE ONE
[2017-09-28 13:31] LABS: BASO % 0.7 %; BASO ABS # 0.04 K/uL (0-0.2); EOS % 2.7 %; EOS ABS # 0.16 K/uL (0-0.5); HEMATOCRIT 42.8 % (37-47); HEMOGLOBIN 14.3 g/dL (12.0-16.0); IG# 0.01 K/uL (0.00-0.02); LYMPH % 16.9 %; LYMPH ABS # 1.01 K/uL (1.2-3.4); MEAN CELL VOLUME 109.5 fL (80-100); MEAN CORPUSCULAR HEMOGLOBIN 36.6 pg (25-34); MEAN CORPUSCULAR HGB CONC 33.4 g/dl (32-36); MEAN PLATELET VOLUME 11.3 fL (7.4-10.4); MONO % 14.4 %; MONO ABS # 0.86 K/uL (0.11-0.59); NEUT % 65.1 %; PLATELET COUNT 209 K/uL (130-400); RED CELL DISTRIBUTION WIDTH CV 13.8 % (11.5-14.5); RED CELL DISTRIBUTION WIDTH SD 53.9 fL (36.4-46.3); WHITE BLOOD COUNT 5.98 K/uL (4.8-10.8)
[2017-09-28 13:48] LABS: HEMOGLOBIN A1C 5.5 % (4.5-5.6)
[2017-09-28 14:27] LABS: ALBUMIN 3.7 gm/dl (3.4-5.0); ALT/SGPT 34 U/L (12-78); AST/SGOT 25 U/L (15-37); BLOOD UREA NITROGEN 19 mg/dl (7-18); CALCIUM 8.5 mg/dl (8.5-10.1); CARBON DIOXIDE 25 mmol/L (21-32); CREATININE 0.83 mg/dl (0.60-1.20); GLUCOSE 97 mg/dl (70-99); SODIUM 139 mmol/L (136-145)
[2017-09-28 14:38] LABS: ALKALINE PHOSPHATASE 132 U/L (45-117); CHOLESTEROL 99 mg/dl (0-200); LDL CHOLESTEROL CALCULATED 26 mg/dl; TOTAL PROTEIN 6.4 gm/dl (6.4-8.2)
== END | disposition home or self-care (01) ==
LOC: C.LABBC 10:01
PROVIDERS: ATTEND Internal Medicine
DX: D47.3 Essential (hemorrhagic) thrombocythemia (principal); G43.909 Migraine, unspecified, not intractable, without status migrainosus; E04.1 Nontoxic single thyroid nodule; D75.1 Secondary polycythemia; R73.9 Hyperglycemia, unspecified; E78.5 Hyperlipidemia, unspecified; J45.909 Unspecified asthma, uncomplicated

== ENCOUNTER 2022-01-09 11:38 | Inpatient (IN) ==
[2022-01-09] MEDS ORDERED: SODIUM CHLORIDE 0.9% 1000ML 1,000 ML IV STA (11:51)
[2022-01-09] MEDS ORDERED: CEFEPIME 2,000 MG/20 ML VIAL IV STA (12:07)
--- NOTE | 2022-01-09 12:10 | Emergency Department Note ---
Impression & Plan Osteomyelitis, Sinusitis, Bacterial infection due to Pseudomonas ED Provider Note NAME: ROBIN MONZON AGE: 81 SEX: F : 1940 ARRIVES VIA: Walk-In INFORMANT: Patient, ED PROVIDER(S): Darrian Naylor DO CHIEF COMPLAINT: Headaches HPI: The patient is an 81-year-old female who presented to the emergency department for an evaluation of headache. The patient states that she has a history of Pseudomonas infection in her sinuses. She was on Levaquin until last Sunday. 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 Because she cannot tolerate the antibiotic she was sent to the emergency department for IV antibiotics. The patient denies having any fever. She does complain of some tongue swelling which has been resolving ever since last Sunday when she stopped the antibiotic. She has had no recent trauma. She has no neck stiffness. She denies having any abdominal pain or vomiting. The patient was using a Nicole pot last August. It is unclear if this is where this infection originated. She is nondiabetic. She states that she has been compliant with her outpatient medications otherwise. ROS: See above HPI for pertinent positives & negatives. A total of 10 systems reviewed and were otherwise negative. PAST MEDICAL HISTORY: See Below PAST SURGICAL HISTORY: See Below FAMILY HISTORY: See Below SOCIAL HISTORY: See Below HOME MEDICATIONS: See Below ALLERGIES: See Below VITALS: See Below PHYSICAL EXAMINATION: GENERAL: Patient is awake alert in no acute distress patient is resting comfortably and showing no signs of anxiety EYES: The conjunctivae are clear. The pupils are round and reactive. EARS, NOSE, MOUTH AND THROAT: The nose is without any evidence of any deformity. Mucous membranes are moist. Tongue is midline. NECK: The neck is nontender and supple. RESPIRATORY: Normal respiratory effort is noted there is no evidence of wheezing rhonchi or rales CARDIOVASCULAR: Regular rate and rhythm noted there no murmurs rubs or gallops normal S1 normal S2. GASTROINTESTINAL: The abdomen is soft. Abdomen is nontender. MUSCULOSKELETAL/EXTREMITIES: There is no evidence of gross deformity full range of motion is noted in the hips and shoulders. SKIN: There is no obvious evidence of any rash. There are no petechiae, pallor or cyanosis noted. NEUROLOGIC: Patient is awake alert and oriented x3 MEDICAL DECISION MAKING: The patient is an 81-year-old female who presented to the emergency department for an evaluation at the request of her ENT doctor. The patient has had an extensive work-up for sinus infection and headache. She was found to have sinus infection due to Pseudomonas. She was using a [place] pot previously. The patient states that she had a problem with her Levaquin last week and this medication had to be stopped. She had a follow-up appointment with ENT as well as a bone biopsy. She was found to have signs of osteomyelitis. Her cultures have been growing Pseudomonas. She was sent to the emergency department for IV fluids and IV antibiotics. The patient was started on cefepime in the emergency department. I discussed the patient's laboratory and radiographic studies with her. I also discussed her case with the on-call [facility] hospitalist. They have agreed to evaluate the patient in the emergency department for further management and disposition. Patient does not appear to have any signs of meningitis. The patient was treated with her outpatient pain medication. Triage Nursing notes reviewed. Prior medical records reviewed Vital Signs: reviewed and remarkable for no significant abnormalities Differential diagnosis: Migraine headache, meningitis, sinusitis, CO exposure, ICH, SAH, infection, tumor, headache, sinus thrombosis, arterial dissection, as well as other pathologies. ER treatment provided: See below Diagnostics interpreted by me: ECG: none Cardiac Monitoring: An order was placed for continuous cardiac monitoring. The monitor shows a rate of 77 bpm with sinus rhythm. Laboratory studies: As stated above and show below. Imaging studies: See below Consultation(s): Discussed this case with Dr. Mcclellan who is on-call for the [facility] group. Past Med/Surg History Medical History (Updated 01/09/22 @ 22:29 by Anitha Mcclellan MD) Asthma Asthmatic bronchitis Essential thrombocythemia Stable on HU 500mg QD. History of TIA (transient ischemic attack) Hyperglycemia Hyperlipidemia Migraine hx Osteopenia after menopause Reactive depression TIA (transient ischemic attack) Several years ago Surgical History H/O reduction mammoplasty History of tonsillectomy and adenoidectomy Hx of abdominoplasty S/P left hemicolectomy Secondary mass (benign) Family History Father Cancer Emphysema lung Prostate cancer Mother Cancer Colorectal cancer Thyroid cancer Colon cancer Sister Breast cancer Cancer Colon cancer Uncle Lung cancer Uncle Lung cancer Denies family history of Ovarian cancer Heart disease Myocardial infarction Hypertension Stroke Asthma Social History Smoking Status: Former smoker Tobacco Type: Cigarettes Age Quit Using Tobacco: 35; Second Hand Exposure: No; Do You Dip or Chew Tobacco: No; Tobacco Cessation Education Requested by Patient: No Hx Alcohol Use: No Hx Substance Use: No Preferred Language: Uzbek Communication Ability: Effective Visual Impairment: Limited Hearing Ability: Normal Addictions Counselor Required: No Beliefs That Will Affect Care: None marital status: / Current Living Situation: Alone Current Living Situation Comment: Home current occupational status: retired How many Children do You have: 3 Other Information That Helps Us Care for You: No Feels Safe at Home: Yes Safety Concerns: Feels Safe At This Time Childhood Exposure to Second-Hand Smoke: Yes caffeine: Yes (drinks coffee daily ) Dental Care, Regularly: Yes Physical Activity Frequency: Daily Physical Activity Frequency Comment: tries to walk daily Seatbelt Use: always Sunscreen Use: Yes Assistive Devices: Glasses Allergies Allergies Allergy/AdvReac Type Severity Reaction Status Date / Time levofloxacin [From Levaquin] AdvReac Intermediate tongue Verified 01/09/22 14:37 swelling codeine AdvReac Mild NAUSEA Verified 01/09/22 14:37 morphine AdvReac Mild GI SYMPTOMS Verified 01/09/22 14:37 Sulfa (Sulfonamide AdvReac Mild NAUSEA Verified 01/09/22 14:37 Antibiotics) Home Meds Home Medications Medication Instructions Recorded Confirmed aspirin 325 mg tablet,delayed 325 mg PO QAM tab 06/11/19 01/09/22 release cyanocobalamin (vitamin B-12) 1,000 mcg PO QAM #90 tab 06/11/19 01/09/22 1,000 mcg tablet cholecalciferol (vitamin D3) 25 1,000 unit PO QAM tab 10/14/21 01/09/22 mcg (1,000 unit) tablet hydroxyurea 500 mg capsule 500 mg PO QAM 01/05/22 01/09/22 sertraline 25 mg tablet 25 mg PO QAM 01/05/22 01/09/22 prednisone 1 mg tablet 1 mg PO UD 01/09/22 01/09/22 prednisone 1 mg tablet 2.5 mg PO UD 01/09/22 01/09/22 Previous Rx's Medication Instructions Recorded albuterol sulfate 90 mcg/actuation 1 - 2 puff INHALATION Q6H PRN #18 08/31/20 aerosol inhaler gm propranolol 20 mg tablet 20 mg PO BID #180 tab 03/04/21 hydrocodone 5 mg-acetaminophen 325 1 tab PO Q6H PRN #14 tab 01/03/22 mg tablet Results & Data (ED) Vital Signs Vital Signs - 24 hr 01/09/22 11:45 01/09/22 12:20 Temperature 36.0 C L Temperature Source Temporal Artery Scan Pulse Rate 86 Pulse Rate [Apical] 77 Pulse Rhythm Regular Pulse Rhythm [Apical] Regular Pulse Strength Normal Pulse Strength [Apical] Normal Respiratory Rate 20 18 Respiratory Effort / Characteristics Non-Labored Spontaneous Non-Labored Spontaneous Respiratory Depth Normal Normal Respiratory Pattern Regular Regular Blood Pressure 106/69 Blood Pressure [Right Arm] 129/74 Blood Pressure Mean 81 Blood Pressure Mean [Right Arm] 92 Blood Pressure Position Sitting Blood Pressure Position [Right Arm] Semi-fowlers Pulse Oximetry 95 94 Oxygen Delivery Method Room Air Room Air Sepsis Recent Fever Within 48 Hours No Sepsis New/Unexplained Change in Mental Status No Sepsis Action Taken by Nursing No Action Required Home Medications Current Medication List: was personally reviewed by me Laboratory Data Attestation: I reviewed the patient's lab results. Result diagrams: 01/10/22 07:26 01/10/22 07:26 Lab Results 01/09/22 01/09/22 01/09/22 Range/Units 12:15 12:15 12:15 WBC 12.06 H (4.8-10.8) K/uL RBC 3.55 L (4.2-5.4) M/uL Hgb 12.9 (12.0-16.0) g/dL Hct 39.2 (37-47) % MCV 110.4 H (80-100) fL MCH 36.3 H (25-34) pg MCHC 32.9 (32-36) g/dL RDW Std Deviation 61.2 H (36.4-46.3) fL RDW Coeff of Dwayne 15.3 H (11.5-14.5) % Plt Count 567 H (130-400) K/uL MPV 10.6 H (7.4-10.4) fL Immature Gran % (Auto) 0.7 % Neut % (Auto) 86.5 % Lymph % (Auto) 5.2 % Carson % (Auto) 7.5 % Eos % (Auto) 0.0 % Baso % (Auto) 0.1 % Neut # (Auto) 10.43 H (1.4-6.5) K/uL Lymph # (Auto) 0.63 L (1.2-3.4) K/uL Carson # (Auto) 0.91 H (0.11-0.59) K/uL Eos # (Auto) 0.00 (0-0.5) K/uL Baso # (Auto) 0.01 (0-0.2) K/uL Immature Gran # (Auto) 0.08 H (0.00-0.02) K/uL Absolute Nucleated RBC 0.03 H (0-0) K/uL Nucleated RBC % (auto) 0.2 % Macrocytosis Present ESR (0-30) mm/hr Sodium 138 (136-145) mmol/L Potassium 4.0 (3.5-5.1) mmol/L Chloride 103 (98-107) mmol/L Carbon Dioxide 25 (21-32) mmol/L Anion Gap 10 (3-11) BUN 15 (6-23) mg/dl Creatinine 0.75 (0.6-1.2) mg/dl Est Cr Clr Drug Dosing 50.5 ml/min Est GFR ( Amer) 85.4 ml/min Est GFR (Non-Af Amer) 73.7 ml/min BUN/Creatinine Ratio 20.0 (10-20) Glucose 126 H (70-99(Fasting)) mg/dl Calcium 8.8 (8.5-10.1) mg/dl Total Bilirubin 0.6 (0.2-1.0) mg/dl AST 12 L (13-39) U/L ALT 14 (7-52) U/L Alkaline Phosphatase 100 (34-104) U/L C-Reactive Protein 4.51 H (0-0.5) mg/dl Total Protein 6.2 (6.0-8.3) gm/dl Albumin 3.7 (3.4-5.0) gm/dl Globulin 2.5 (2.5-4.0) gm/dl Albumin/Globulin Ratio 1.5 (0.9-2) Procalcitonin 0.10 (0-0.5) ng/ml SARS-CoV-2, RNA, NAAT (NEGATIVE) 01/09/22 01/09/22 Range/Units 12:15 12:15 WBC (4.8-10.8) K/uL RBC (4.2-5.4) M/uL Hgb (12.0-16.0) g/dL Hct (37-47) % MCV (80-100) fL MCH (25-34) pg MCHC (32-36) g/dL RDW Std Deviation (36.4-46.3) fL RDW Coeff of Dwayne (11.5-14.5) % Plt Count (130-400) K/uL MPV (7.4-10.4) fL Immature Gran % (Auto) % Neut % (Auto) % Lymph % (Auto) % Carson % (Auto) % Eos % (Auto) % Baso % (Auto) % Neut # (Auto) (1.4-6.5) K/uL Lymph # (Auto) (1.2-3.4) K/uL Carson # (Auto) (0.11-0.59) K/uL Eos # (Auto) (0-0.5) K/uL Baso # (Auto) (0-0.2) K/uL Immature Gran # (Auto) (0.00-0.02) K/uL Absolute Nucleated RBC (0-0) K/uL Nucleated RBC % (auto) % Macrocytosis ESR 49 H (0-30) mm/hr Sodium (136-145) mmol/L Potassium (3.5-5.1) mmol/L Chloride (98-107) mmol/L Carbon Dioxide (21-32) mmol/L Anion Gap (3-11) BUN (6-23) mg/dl Creatinine (0.6-1.2) mg/dl Est Cr Clr Drug Dosing ml/min Est GFR ( Amer) ml/min Est GFR (Non-Af Amer) ml/min BUN/Creatinine Ratio (10-20) Glucose (70-99(Fasting)) mg/dl Calcium (8.5-10.1) mg/dl Total Bilirubin (0.2-1.0) mg/dl AST (13-39) U/L ALT (7-52) U/L Alkaline Phosphatase (34-104) U/L C-Reactive Protein (0-0.5) mg/dl Total Protein (6.0-8.3) gm/dl Albumin (3.4-5.0) gm/dl Globulin (2.5-4.0) gm/dl Albumin/Globulin Ratio (0.9-2) Procalcitonin (0-0.5) ng/ml SARS-CoV-2, RNA, NAAT NEGATIVE (NEGATIVE) Administered Medications Hydrocodone Bitart/Acetaminophen (Hydrocodone/Acetamophen 5/325mg Tab) 1 tab PO Q6H PRN PRN Reason: moderate-severe pain Stop: 01/23/22 16:59 Last Admin: 01/10/22 07:19 Dose: 1 tab Documented by: [id number] Admin: 01/09/22 20:34 Dose: 1 tab Documented by: [id number] Aspirin (Aspirin 325 Mg Ectab) 325 mg PO [facility] Stop: 02/09/22 08:59 Last Admin: 01/10/22 08:40 Dose: 325 mg Documented by: [id number] Cyanocobalamin (Cyanocobalamin (B-12) 500 Mcg Tablet) 1,000 mcg PO [facility] Stop: 02/09/22 08:59 Last Admin: 01/10/22 08:38 Dose: 1,000 mcg Documented by: [id number] Heparin Sodium (Porcine) (Heparin Sod 5,000 Unit/0.5 Ml Vial) 5,000 units SQ Q 12 [facility] Stop: 02/08/22 20:59 Last Admin: 01/10/22 08:35 Dose: 5,000 units Documented by: [id number] Admin: 01/09/22 20:35 Dose: 5,000 units Documented by: [id number] Hydroxyurea (Hydroxyurea 500 Mg Cap) 500 mg PO [facility] Stop: 02/09/22 08:59 Last Admin: 01/10/22 08:38 Dose: 500 mg Documented by: [id number] Cosigned by: [id number] Cefepime HCl 2,000 mg/ Syringe 20 mls @ 5 mls/min IV Q12H [facility]; Protocol Stop: 02/20/22 22:59 Last Admin: 01/09/22 22:50 Dose: 5 mls/min Documented by: [id number] Ondansetron HCl (Ondansetron Inj 2 Mg/Ml 2 Ml Vial) 4 mg IV Q6H PRN PRN Reason: Nausea Stop: 02/08/22 16:59 Last Admin: 01/10/22 08:27 Dose: 4 mg Documented by: [id number] Prednisone (Prednisone 2.5 Mg Tab) 2.5 mg PO QAM [facility] Stop: 02/09/22 08:59 Last Admin: 01/10/22 08:39 Dose: 2.5 mg Documented by: [id number] Propranolol HCl (Propranolol Hcl 20 Mg Tab) 20 mg PO BID [facility] Stop: 02/08/22 20:59 Last Admin: 01/10/22 08:37 Dose: 20 mg Documented by: [id number] Admin: 01/09/22 20:35 Dose: 20 mg Documented by: [id number] Sertraline HCl (Sertraline Hcl 50 Mg Tablet) [facility] [place] Stop: 02/09/22 08:59 Last Admin: 01/10/22 08:39 Dose: 25 mg Documented by: [id number] Vitamin D (Cholecalciferol 5,000 Units 125 Mcg Tab) 5,000 units [facility] [place] Stop: 02/09/22 08:59 Last Admin: 01/10/22 08:40 Dose: 5,000 units Documented by: [id number] Discontinued Medications Hydrocodone Bitart/Acetaminophen (Hydrocodone/Acetamophen 5/325mg Tab) 1 tab PO ONE ONE Stop: 01/09/22 14:31 Last Admin: 01/09/22 14:36 Dose: 1 tab Documented by: [id number] Sodium Chloride (Nss 1000ml) 1,000 mls @ 999 mls/hr IV .Q1H1M STA Stop: 01/09/22 12:51 Last Infusion: 01/09/22 14:07 Dose: 0 mls/hr Documented by: [id number] Admin: 01/09/22 12:46 Dose: 999 mls/hr Documented by: [id number] Cefepime HCl (Maxipime) 2,000 mg in 20 mls @ 5 mls/min IV NOW STA; Protocol Stop: 01/09/22 12:10 Last Admin: 01/09/22 12:46 Dose: 5 mls/min Documented by: [id number] Discharge Plan Visit Data Chief Complaint: Referred by Doctor Stated Complaint: REFERRED, WANTS IV TREATMENT FOR BONE INFECTION ED Provider: Darrian Naylor Discharge Problem: Osteomyelitis, Sinusitis, Bacterial infection due to Pseudomonas Patient Disposition: Admitted As Inpatient Discharge Instructions Interventions: ED Discharge Assessment Last Done: 01/09/22 15:50 Discharge Problem: Osteomyelitis Qualifiers: Osteomyelitis type: unspecified type Osteomyelitis location: unspecified site Qualified Code(s): M86.9 - Osteomyelitis, unspecified Sinusitis Qualifiers: Sinusitis location: unspecified location Chronicity: unspecified Qualified Code(s): J32.9 - Chronic sinusitis, unspecified
[2022-01-09 12:50] LABS: Basophils # (auto) 0.01 K/uL (0-0.2); Basophils % (auto) 0.1 %; Hematocrit (blood only) 39.2 % (37-47); Hemoglobin 12.9 g/dL (12.0-16.0); Immature Granulocytes # (auto) 0.08 K/uL (0.00-0.02); Immature Granulocytes % (auto) 0.7 %; Lymphocytes # (auto) 0.63 K/uL (1.2-3.4); Lymphocytes % (auto) 5.2 %; Mean Corpuscular Hemoglobin 36.3 pg (25-34); Mean Corpuscular Hgb Conc 32.9 g/dL (32-36); Mean Corpuscular Volume 110.4 fL (80-100); Mean Platelet Volume 10.6 fL (7.4-10.4); Monocytes # (auto) 0.91 K/uL (0.11-0.59); Monocytes % (auto) 7.5 %; Neutrophils # (auto) 10.43 K/uL (1.4-6.5); Neutrophils % (auto) 86.5 %; Nucleated RBC # (auto) 0.03 K/uL (0-0); Nucleated RBC % (auto) 0.2 %; Platelet Count 567 K/uL (130-400); RDW Coefficient of Variation 15.3 % (11.5-14.5); RDW Standard Deviation 61.2 fL (36.4-46.3); Red Blood Count 3.55 M/uL (4.2-5.4); White Blood Count 12.06 K/uL (4.8-10.8)
--- NOTE | 2022-01-09 13:21 | History & Physical Report ---
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 No evidence of sepsis at this time. I discussed her case with her ENT surgeon, Dr. Manning, at length. While there remains a possibility of a nasopharyngeal mass, the most likely possibility at this point is osteomyelitis and sinusitis. 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 -ENT is aware the patient is in house but does not think there is anything further surgical to do at this time-no need for consultation at this time but she may come to see her at some point this week -Will likely repeat sinus imaging in the future to assess for improvement (2) Sinusitis: Plan: As above (3) Bacterial infection due to Pseudomonas: Plan: As above (4) Nasopharyngeal mass: Plan: As above (5) Asthma: Plan: No acute issues Albuterol as needed (6) Headache: Plan: Secondary to sinusitis and osteomyelitis as above Continue hydrocodone and Tylenol as needed Hopefully with treatment of the infection, headaches will improve (7) Osteopenia after menopause: Plan: Continue home vitamin D (8) Essential thrombocythemia: Plan: Does not follow with hematology Platelets in the 500s Continue home hydroxyurea (9) Reactive depression: Plan: Stable Continue home sertraline and propranolol which she uses for anxiety/panic attacks (10) History of TIA (transient ischemic attack): Plan: Continue aspirin Plan: DVT prophylaxis-SCDs, SQ heparin Disposition-admit to medical/surgical unit DNR/DNI as discussed with patient the bedside. History of Present Illness Chief Complaint: Osteomyelitis of the skull Primary Care Provider: Jamal Garcia MD This pt is an 81 y/o F with a PMH of hyperlipidemia, asthma, migraines, TIA, thyroid goiter, essential thrombocytosis with JAK2 mutation, laryngopharyngeal reflux, and depression who has recently been dealing with a recurrent Pseudomonas sphenoid sinusitis and headaches since 09/2021. She has been treated initially with amoxicillin and had no improvement. She then was seen by ENT and had a culture which grew out Pseudomonas. She did take levofloxacin and had some improvement at that time and has also been on prednisone burst and tapers frequently since October. She was started back on levofloxacin again a little over a week ago and after 2 doses, noted left-sided tongue swelling and difficulty swallowing. She was seen in the ER and it was thought to be an allergic reaction to levofloxacin. That medication was discontinued and she was discharged home. However, during that ER visit on 01/[address] of the sinuses which showed abnormal retropharyngeal/posterior nasopharynx soft tissue eccentric to the left with infiltration of the adjacent soft tissues and loss of fat planes with possible associated erosion of the clivus suspicious for a neoplastic process. This was new from the previous imaging 1 month earlier. She was seen again by ENT 2 days later and was recommended to have urgent diagnostic nasal endoscopy with biopsy of the nasopharynx. This was performed on 01/06 and the cultures from that procedure again are growing 2 different strains of Pseudomonas aeruginosa. The biopsy was reported to ENT by pathology as heavily inflamed granulation tissue, negative for fungal/CMV/HSV. Negative for lymphoproliferative disorder. She has had persistent at times severe headaches in the posterior occiput. She is continuing to have difficulty swallowing and speaking due to the left-sided tongue swelling which may be due to a subtle paresis of cranial nerve XII due to its proximity to the infection as per ENT. She has been taking hydrocodone for the headaches. She denies any fevers/sweats/chills. No nausea or vomiting, no visual changes, no weakness or numbness or tingling anywhere else. She was referred to the ER by Dr. Manning of ENT to be admitted for IV antibiotics for skull base osteomyelitis. Allergies Allergy/AdvReac Type Severity Reaction Status Date / Time levofloxacin [From Levaquin] AdvReac Intermediate tongue Verified 01/09/22 14:37 swelling codeine AdvReac Mild NAUSEA Verified 01/09/22 14:37 morphine AdvReac Mild GI SYMPTOMS Verified 01/09/22 14:37 Sulfa (Sulfonamide AdvReac Mild NAUSEA Verified 01/09/22 14:37 Antibiotics) Home Medications Medication Instructions Recorded Confirmed Type aspirin 325 mg tablet,delayed 325 mg PO QAM tab 06/11/19 01/09/22 History release cyanocobalamin (vitamin B-12) 1,000 mcg PO QAM #90 tab 06/11/19 01/09/22 History 1,000 mcg tablet albuterol sulfate 90 mcg/actuation 1 - 2 puff INHALATION Q6H PRN #18 08/31/20 01/09/22 Rx aerosol inhaler gm propranolol 20 mg tablet 20 mg PO BID #180 tab 03/04/21 01/09/22 Rx cholecalciferol (vitamin D3) 25 1,000 unit PO QAM tab 10/14/21 01/09/22 History mcg (1,000 unit) tablet hydrocodone 5 mg-acetaminophen 325 1 tab PO Q6H PRN #14 tab 01/03/22 01/09/22 Rx mg tablet hydroxyurea 500 mg capsule 500 mg PO QAM 01/05/22 01/09/22 History sertraline 25 mg tablet 25 mg PO QAM 01/05/22 01/09/22 History prednisone 1 mg tablet 1 mg PO UD 01/09/22 01/09/22 History prednisone 1 mg tablet 2.5 mg PO UD 01/09/22 01/09/22 History Past Med/Surg History Medical History (Updated 01/09/22 @ 22:29 by Anitha Mcclellan MD) Asthma Asthmatic bronchitis Essential thrombocythemia Stable on HU 500mg QD. History of TIA (transient ischemic attack) Hyperglycemia Hyperlipidemia Migraine hx Osteopenia after menopause Reactive depression TIA (transient ischemic attack) Several years ago Surgical History H/O reduction mammoplasty History of tonsillectomy and adenoidectomy Hx of abdominoplasty S/P left hemicolectomy Secondary mass (benign) Family History Father Cancer Emphysema lung Prostate cancer Mother Cancer Colorectal cancer Thyroid cancer Colon cancer Sister Breast cancer Cancer Colon cancer Uncle Lung cancer Uncle Lung cancer Denies family history of Ovarian cancer Heart disease Myocardial infarction Hypertension Stroke Asthma Social History Smoking Status: Former smoker Tobacco Type: Cigarettes Age Quit Using Tobacco: 35; Second Hand Exposure: No; Do You Dip or Chew Tobacco: No; Tobacco Cessation Education Requested by Patient: No Hx Alcohol Use: No Hx Substance Use: No Preferred Language: Armenian Communication Ability: Effective Visual Impairment: Limited Hearing Ability: Normal Adjunct Faculty Mathematics Department Required: No Beliefs That Will Affect Care: None marital status: / Current Living Situation: Alone Current Living Situation Comment: Home current occupational status: retired How many Children do You have: 3 Other Information That Helps Us Care for You: No Feels Safe at Home: Yes Safety Concerns: Feels Safe At This Time Childhood Exposure to Second-Hand Smoke: Yes caffeine: Yes (drinks coffee daily ) Dental Care, Regularly: Yes Physical Activity Frequency: Daily Physical Activity Frequency Comment: tries to walk daily Seatbelt Use: always Sunscreen Use: Yes Assistive Devices: Glasses Review of Systems Review of Systems: All systems reviewed & are unremarkable except as noted in HPI & below Physical Exam Constitutional: WD/WN, vitals as above Eyes: PERRL, conjunctivae normal, anicteric sclerae ENMT: Ears: no external ear abnormality, no EAC abnormality and no TM abnormality Nose: no external nose abnormality and no nasal mucous membrane abnormality Mouth: + tongue abnormality (Left tongue enlarged and tilted upward); no lip abnormality, no oral mucosal abnormality and no muffled voice Throat: no posterior oropharynx abnormality No tenderness to palpation over forehead or maxillae Neck: trachea midline, no thyromegaly neck nontender, negative Brudzinski's sign and negative Kernig's sign No tenderness to palpation over posterior neck Respiratory: normal respiratory effort, lungs clear to auscultation Cardiovascular: RRR, no murmur, no edema Chest (Breasts): Chest: normal inspection of chest Gastrointestinal (Abdomen): normal bowel sounds, soft, nontender, no hepatosplenomegaly Musculoskeletal: Extremities: extremities normal to inspection; no cyanosis and no clubbing Skin: no rashes, warm and dry Neurologic: moves all extremities and awake; no focal motor deficits Psychiatric: A+Ox3, euthymic affect Lymphatic: no lymphedema Results & Data Results & Data ([facility]) Vital Signs (Past 12 Hours) Vital Signs Temp Pulse Pulse Resp BP BP Pulse Ox 01/09/22 12:20 77 18 129/74 94 01/09/22 11:45 36.0 C L 86 20 106/69 95 Laboratory Results 01/09/22 01/09/22 01/09/22 Range/Units 12:15 12:15 12:15 WBC (4.8-10.8) K/uL RBC (4.2-5.4) M/uL Hgb (12.0-16.0) g/dL Hct (37-47) % MCV (80-100) fL MCH (25-34) pg MCHC (32-36) g/dL RDW Std Deviation (36.4-46.3) fL RDW Coeff of Dwayne (11.5-14.5) % Plt Count (130-400) K/uL MPV (7.4-10.4) fL Immature Gran % (Auto) % Neut % (Auto) % Lymph % (Auto) % [place] % (Auto) % Eos % (Auto) % Baso % (Auto) % Neut # (Auto) (1.4-6.5) K/uL Lymph # (Auto) (1.2-3.4) K/uL [place] # (Auto) (0.11-0.59) K/uL Eos # (Auto) (0-0.5) K/uL Baso # (Auto) (0-0.2) K/uL Immature Gran # (Auto) (0.00-0.02) K/uL Absolute Nucleated RBC (0-0) K/uL Nucleated RBC % (auto) % Macrocytosis ESR 49 H (0-30) mm/hr Sodium (136-145) mmol/L Potassium (3.5-5.1) mmol/L Chloride (98-107) mmol/L Carbon Dioxide (21-32) mmol/L Anion Gap (3-11) BUN (6-23) mg/dl Creatinine (0.6-1.2) mg/dl Est Cr Clr Drug Dosing ml/min Est GFR ( Amer) ml/min Est GFR (Non-Af Amer) ml/min BUN/Creatinine Ratio (10-20) Glucose (70-99(Fasting)) mg/dl Calcium (8.5-10.1) mg/dl Total Bilirubin (0.2-1.0) mg/dl AST (13-39) U/L ALT (7-52) U/L Alkaline Phosphatase (34-104) U/L C-Reactive Protein (0-0.5) mg/dl Total Protein (6.0-8.3) gm/dl Albumin (3.4-5.0) gm/dl Globulin (2.5-4.0) gm/dl Albumin/Globulin Ratio (0.9-2) Procalcitonin 0.10 (0-0.5) ng/ml SARS-CoV-2, RNA, NAAT NEGATIVE (NEGATIVE) 01/09/22 01/09/22 Range/Units 12:15 12:15 WBC 12.06 H (4.8-10.8) K/uL RBC 3.55 L (4.2-5.4) M/uL Hgb 12.9 (12.0-16.0) g/dL Hct 39.2 (37-47) % MCV 110.4 H (80-100) fL MCH 36.3 H (25-34) pg MCHC 32.9 (32-36) g/dL RDW Std Deviation 61.2 H (36.4-46.3) fL RDW Coeff of Dwayne 15.3 H (11.5-14.5) % Plt Count 567 H (130-400) K/uL MPV 10.6 H (7.4-10.4) fL Immature Gran % (Auto) 0.7 % Neut % (Auto) 86.5 % Lymph % (Auto) 5.2 % [place] % (Auto) 7.5 % Eos % (Auto) 0.0 % Baso % (Auto) 0.1 % Neut # (Auto) 10.43 H (1.4-6.5) K/uL Lymph # (Auto) 0.63 L (1.2-3.4) K/uL [place] # (Auto) 0.91 H (0.11-0.59) K/uL Eos # (Auto) 0.00 (0-0.5) K/uL Baso # (Auto) 0.01 (0-0.2) K/uL Immature Gran # (Auto) 0.08 H (0.00-0.02) K/uL Absolute Nucleated RBC 0.03 H (0-0) K/uL Nucleated RBC % (auto) 0.2 % Macrocytosis Present ESR (0-30) mm/hr Sodium 138 (136-145) mmol/L Potassium 4.0 (3.5-5.1) mmol/L Chloride 103 (98-107) mmol/L Carbon Dioxide 25 (21-32) mmol/L Anion Gap 10 (3-11) BUN 15 (6-23) mg/dl Creatinine 0.75 (0.6-1.2) mg/dl Est Cr Clr Drug Dosing 50.5 ml/min Est GFR ( Amer) 85.4 ml/min Est GFR (Non-Af Amer) 73.7 ml/min BUN/Creatinine Ratio 20.0 (10-20) Glucose 126 H (70-99(Fasting)) mg/dl Calcium 8.8 (8.5-10.1) mg/dl Total Bilirubin 0.6 (0.2-1.0) mg/dl AST 12 L (13-39) U/L ALT 14 (7-52) U/L Alkaline Phosphatase 100 (34-104) U/L C-Reactive Protein 4.51 H (0-0.5) mg/dl Total Protein 6.2 (6.0-8.3) gm/dl Albumin 3.7 (3.4-5.0) gm/dl Globulin 2.5 (2.5-4.0) gm/dl Albumin/Globulin Ratio 1.5 (0.9-2) Procalcitonin (0-0.5) ng/ml SARS-CoV-2, RNA, NAAT (NEGATIVE) Code Status & VTE Plan Code Status DNR/DNI VTE Prophylaxis Plan VTE Prophylaxis will be ordered: Yes PG Care Time/CCT Total # of Minutes Spent Total Time Spent with Patient: Total time spent is greater than 50% in coordination of care (as documented) at patient's floor/unit and/or counseling patient: Coding Level of Care Code 44582 Initial Inpt Care Lvl 3 Diagnoses Osteomyelitis M86.9 Osteomyelitis location: unspecified site Osteomyelitis type: unspecified type Sinusitis J32.9 Chronicity: unspecified Sinusitis location: unspecified location Bacterial infection due to Pseudomonas A49.8 Nasopharyngeal mass J39.2 Asthma J45.909 Headache R51.9 Osteopenia after menopause M85.80 Essential thrombocythemia D47.3 Reactive depression F32.9 History of TIA (transient ischemic attack) Z86.73 (1) Osteomyelitis Osteomyelitis location: unspecified site Osteomyelitis type: unspecified type Qualified Code(s): M86.9 - Osteomyelitis, unspecified (2) Sinusitis Chronicity: unspecified Sinusitis location: unspecified location Qualified Code(s): J32.9 - Chronic sinusitis, unspecified
[2022-01-09 13:23] LABS: Albumin Globulin Ratio 1.5 (0.9-2); Albumin Level 3.7 gm/dl (3.4-5.0); Bilirubin,Total 0.6 mg/dl (0.2-1.0); C Reactive Protein 4.51 mg/dl (0-0.5); Calcium 8.8 mg/dl (8.5-10.1); Creatinine Clr Calc Pharmacy 50.5 ml/min; Est GFR (African American) 85.4 ml/min; Est GFR (Non-African American) 73.7 ml/min; Globulin 2.5 gm/dl (2.5-4.0); Total Protein 6.2 gm/dl (6.0-8.3)
[2022-01-09 13:33] LABS: Macrocytosis Present
[2022-01-09] MEDS ORDERED: HYDROCODONE/ACETAMOPHEN 5/325MG TAB PO ONE (14:30)
[2022-01-09] MEDS ORDERED: POLYETHYLENE (MIRALAX) 17 GM PACK PO PRN (17:00)
[2022-01-09] MEDS ORDERED: MAGNESIUM HYDROXIDE SUSP 30 ML UDC PO PRN (17:00)
[2022-01-09] MEDS ORDERED: ALBUTEROL HFA 8 GM INHALER INH PRN (17:00)
[2022-01-09] MEDS ORDERED: ACETAMINOPHEN 325 MG TAB PO PRN (17:00)
[2022-01-09] MEDS: HYDROCODONE/ACETAMOPHEN 5/325MG TAB PO PRN (20:34)
[2022-01-09] MEDS: PROPRANOLOL HCL 20 MG TAB PO SCH (20:35)
[2022-01-09] MEDS: HEPARIN SOD 5,000 UNIT/0.5 ML VIAL SQ SCH (20:35)
[2022-01-09] MEDS: CEFEPIME 2,000 MG in SYRINGE 0 ML IV SCH (22:50)
[2022-01-10] MEDS: HYDROCODONE/ACETAMOPHEN 5/325MG TAB PO PRN ×2 (07:19→20:00)
[2022-01-10 07:52] LABS: Basophils # (auto) 0.01 K/uL (0-0.2); Basophils % (auto) 0.1 %; Eosinophils # (auto) 0.02 K/uL (0-0.5); Eosinophils % (auto) 0.2 %; Hematocrit (blood only) 38.2 % (37-47); Hemoglobin 12.3 g/dL (12.0-16.0); Immature Granulocytes # (auto) 0.06 K/uL (0.00-0.02); Immature Granulocytes % (auto) 0.7 %; Lymphocytes # (auto) 0.89 K/uL (1.2-3.4); Mean Corpuscular Hemoglobin 35.3 pg (25-34); Mean Corpuscular Hgb Conc 32.2 g/dL (32-36); Mean Corpuscular Volume 109.8 fL (80-100); Mean Platelet Volume 10.4 fL (7.4-10.4); Monocytes # (auto) 1.03 K/uL (0.11-0.59); Monocytes % (auto) 11.5 %; Neutrophils # (auto) 6.92 K/uL (1.4-6.5); Neutrophils % (auto) 77.5 %; Platelet Count 519 K/uL (130-400); RDW Coefficient of Variation 15.2 % (11.5-14.5); RDW Standard Deviation 60.4 fL (36.4-46.3); Red Blood Count 3.48 M/uL (4.2-5.4); White Blood Count 8.93 K/uL (4.8-10.8)
[2022-01-10 08:06] LABS: Albumin Globulin Ratio 1.5 (0.9-2); Albumin Level 3.5 gm/dl (3.4-5.0); BUN Creatinine Ratio 13.3 (10-20); Bilirubin,Total 0.6 mg/dl (0.2-1.0); C Reactive Protein 6.42 mg/dl (0-0.5); Calcium 8.7 mg/dl (8.5-10.1); Creatinine Clr Calc Pharmacy 50.5 ml/min; Est GFR (African American) 85.4 ml/min; Est GFR (Non-African American) 73.7 ml/min; Globulin 2.4 gm/dl (2.5-4.0); Potassium 3.6 mmol/L (3.5-5.1); Total Protein 5.9 gm/dl (6.0-8.3)
[2022-01-10] MEDS: ONDANSETRON INJ 2 MG/ML 2 ML VIAL IV PRN ×2 (08:27→20:00)
[2022-01-10] MEDS: HEPARIN SOD 5,000 UNIT/0.5 ML VIAL SQ SCH ×2 (08:35→20:01)
[2022-01-10] MEDS: PROPRANOLOL HCL 20 MG TAB PO SCH ×2 (08:37→20:01)
[2022-01-10] MEDS: HYDROXYUREA 500 MG CAP PO SCH (08:38)
[2022-01-10] MEDS: CYANOCOBALAMIN (B-12) 500 MCG TABLET PO SCH (08:38)
[2022-01-10] MEDS: SERTRALINE HCL 50 MG TABLET PO SCH (08:39)
[2022-01-10] MEDS: predniSONE 2.5 MG TAB PO SCH (08:39)
[2022-01-10] MEDS: CHOLECALCIFEROL 5,000 UNITS 125 MCG TAB PO SCH (08:40)
[2022-01-10] MEDS: ASPIRIN 325 MG ECTAB PO SCH (08:40)
[2022-01-10] MEDS: ADVANCED PROBIOTIC 1250 MG CAPSULE PO SCH (10:43)
[2022-01-10] MEDS: CEFEPIME 2,000 MG in SYRINGE 0 ML IV SCH ×2 (10:44→20:02)
--- NOTE | 2022-01-10 12:24 | Hospitalist Progress Note ---
Date of Service January 10, 2022 Assessment & Plan (1) Osteomyelitis: Plan: Osteomyelitis of the CLIVUS/skull base. 2nd to Pseudomonas aeruginosa. (the clivus is adjacent to the sphenoid sinus). s/p ENT surgery by Dr Manning on 01/06/22 with biopsy of nasopharyngeal "mass." Pathology with evidence of infection but no malignancy or signs of lymphoproliferative disorder seen on that biopsy. The pseudomonas on cultures from 01/06, CT/MRI findings, and clinical picture most compatible with osteomyelitis of the clivus/skull base and sphenoid sinusitis. Continue IV cefepime. [facility] consult pending. Continue hydrocodone prn for headaches/pain. Trend her inflammatory markers. Has been on prednisone as outpatient and was recently tapered to 2.5mg daily. Dr Mcclellan spoke with Dr Manning on day of admission - Dr Manning recommended against increasing the steroids at this time. IF patient fails to improve or worsens would need transfer to tertiary care center. Will speak with Dr Manning tomorrow. I am uncertain why she has developed pseudomonas sinusitis. Certainly an atypical/uncommon pathogen for sinus disease. Prior to this winter/spring she had been in good health with no illnesses. She does have essential thrombocytosis - this can morph into a leukemic process at times. This was not seen on biopsy. Nor was granulomatous disease seen (Mookie's, ANCA-associated disease). Will send peripheral smear in am to be complete, however. (2) Sinusitis: Plan: Sphenoid As above (3) Bacterial infection due to Pseudomonas: Plan: cont IV cefepime recently had outpatient levaquin therapy intra-op cultures with intermediate sensitivity which likely contributed to treatment failure (4) Nasopharyngeal mass: Plan: As above biopsies negative for malignancy (5) Asthma: Plan: No acute issues Albuterol as needed (6) Headache: Plan: Secondary to sinusitis and osteomyelitis as above Continue hydrocodone prn Hopefully with treatment of the infection headaches will improve/resolve (7) Osteopenia after menopause: Plan: Continue home vitamin D (8) Essential thrombocythemia: Plan: Does not follow with hematology Platelets in the 500s at this time Continue home hydroxyurea Peripheral smear requested for tomorrow AM (9) Reactive depression: Plan: Stable Continue home sertraline Continue propranolol which she uses for anxiety/panic attacks (10) History of TIA (transient ischemic attack): Plan: Continue aspirin Plan: DVT prophylaxis - SC heparin updated pt's daughter by phone extensively this evening (15+ minutes) Admission and Anticipated Discharge Date Admission Date: January 09, 2022 Subjective patient states her posterior occipital headaches continue but are being controlled with pain meds no fevers or chills appetite fair no nasal drainage still with abnormal tongue mobility and some challenges in swallowing because of such frustrated by her current situation but hopeful she will improve with IV abx therapy states she had lost 20 pounds in the last few months but has started to gain it back however, weights in the computer over the last 6 months don't appear to reflect that Review of Systems Review of Systems: gen - no fevers or chills cv - no chest pain pulm - no cough or dyspnea GI - no nausea or vomiting Physical Exam Physical Exam: gen - NAD, comfortable, awake, alert, oriented x 3 face - no tenderness to palpation over frontal or maxillary sinuses; no gross deformity of nose or other facial structures mouth - MMM; tongue - with protrusion the left tongue muscles are grossly impaired neck - mildly tender to palpation over the occipital region heart - RRR, s1 s2, no murmur lungs - CTA b/l abd - soft NT ND BS+ ext - no edema, pulses 2+ b/l neuro - all spooler operator are intact except CN 12 as noted above Results & Data Results & Data ([facility]) Vital Signs (Past 12 Hours) Vital Signs Temp Pulse Resp BP Pulse Ox 01/10/22 07:10 36.8 C 71 16 138/71 96 Laboratory Results Laboratory Results - last 24 hr 01/09/22 01/09/22 01/09/22 12:15 12:15 12:15 WBC 12.06 H RBC 3.55 L Hgb 12.9 Hct 39.2 MCV 110.4 H MCH 36.3 H MCHC 32.9 RDW Std Deviation 61.2 H RDW Coeff of Dwayne 15.3 H Plt Count 567 H MPV 10.6 H Immature Gran % (Auto) 0.7 Neut % (Auto) 86.5 Lymph % (Auto) 5.2 [place] % (Auto) 7.5 Eos % (Auto) 0.0 Baso % (Auto) 0.1 Neut # (Auto) 10.43 H Lymph # (Auto) 0.63 L [place] # (Auto) 0.91 H Eos # (Auto) 0.00 Baso # (Auto) 0.01 Immature Gran # (Auto) 0.08 H Absolute Nucleated RBC 0.03 H Nucleated RBC % (auto) 0.2 Macrocytosis Present ESR Sodium 138 Potassium 4.0 Chloride 103 Carbon Dioxide 25 Anion Gap 10 BUN 15 Creatinine 0.75 Est Cr Clr Drug Dosing 50.5 Est GFR ( Amer) 85.4 Est GFR (Non-Af Amer) 73.7 BUN/Creatinine Ratio 20.0 Glucose 126 H Calcium 8.8 Total Bilirubin 0.6 AST 12 L ALT 14 Alkaline Phosphatase 100 C-Reactive Protein 4.51 H Total Protein 6.2 Albumin 3.7 Globulin 2.5 Albumin/Globulin Ratio 1.5 Procalcitonin 0.10 SARS-CoV-2, RNA, NAAT 01/09/22 01/09/22 01/10/22 12:15 12:15 07:26 WBC 8.93 RBC 3.48 L Hgb 12.3 Hct 38.2 MCV 109.8 H MCH 35.3 H MCHC 32.2 RDW Std Deviation 60.4 H RDW Coeff of Dwayne 15.2 H Plt Count 519 H MPV 10.4 Immature Gran % (Auto) 0.7 Neut % (Auto) 77.5 Lymph % (Auto) 10.0 [place] % (Auto) 11.5 Eos % (Auto) 0.2 Baso % (Auto) 0.1 Neut # (Auto) 6.92 H Lymph # (Auto) 0.89 L [place] # (Auto) 1.03 H Eos # (Auto) 0.02 Baso # (Auto) 0.01 Immature Gran # (Auto) 0.06 H Absolute Nucleated RBC Nucleated RBC % (auto) Macrocytosis ESR 49 H Sodium Potassium Chloride Carbon Dioxide Anion Gap BUN Creatinine Est Cr Clr Drug Dosing Est GFR ( Amer) Est GFR (Non-Af Amer) BUN/Creatinine Ratio Glucose Calcium Total Bilirubin AST ALT Alkaline Phosphatase C-Reactive Protein Total Protein Albumin Globulin Albumin/Globulin Ratio Procalcitonin SARS-CoV-2, RNA, NAAT NEGATIVE 01/10/22 01/10/22 07:26 07:26 WBC RBC Hgb Hct MCV MCH MCHC RDW Std Deviation RDW Coeff of Dwayne Plt Count MPV Immature Gran % (Auto) Neut % (Auto) Lymph % (Auto) [place] % (Auto) Eos % (Auto) Baso % (Auto) Neut # (Auto) Lymph # (Auto) [place] # (Auto) Eos # (Auto) Baso # (Auto) Immature Gran # (Auto) Absolute Nucleated RBC Nucleated RBC % (auto) Macrocytosis ESR 24 Sodium 136 Potassium 3.6 Chloride 101 Carbon Dioxide 27 Anion Gap 8 BUN 10 Creatinine 0.75 Est Cr Clr Drug Dosing 50.5 Est GFR ( Amer) 85.4 Est GFR (Non-Af Amer) 73.7 BUN/Creatinine Ratio 13.3 Glucose 102 H Calcium 8.7 Total Bilirubin 0.6 AST 10 L ALT 11 Alkaline Phosphatase 90 C-Reactive Protein 6.42 H Total Protein 5.9 L Albumin 3.5 Globulin 2.4 L Albumin/Globulin Ratio 1.5 Procalcitonin SARS-CoV-2, RNA, NAAT Diagnostic Findings recent nasopharyngeal biopsy noted - no malignancy seen; granulation tissue/inflammatory cells seen suggestive of infection; no granulomas recent intra-op nasal cultures - pseudomonas x 2 strains, 1 with intermediate resistance to levofloxacin PG Care Time/CCT Total # of Minutes Spent Total Time Spent with Patient: Total time spent is greater than 50% in coordination of care (as documented) at patient's floor/unit and/or counseling patient: Coding Level of Care Code 99050 Subseq Hosp Care Lvl 3 Diagnoses Osteomyelitis M86.9 Osteomyelitis location: unspecified site Osteomyelitis type: unspecified type Sinusitis J32.9 Chronicity: unspecified Sinusitis location: unspecified location Bacterial infection due to Pseudomonas A49.8 Nasopharyngeal mass J39.2 Asthma J45.909 Headache R51.9 Osteopenia after menopause M85.80 Essential thrombocythemia D47.3 Reactive depression F32.9 History of TIA (transient ischemic attack) Z86.73 (1) Sinusitis Chronicity: unspecified Sinusitis location: unspecified location Qualified Code(s): J32.9 - Chronic sinusitis, unspecified (2) Osteomyelitis Osteomyelitis location: unspecified site Osteomyelitis type: unspecified type Qualified Code(s): M86.9 - Osteomyelitis, unspecified
[2022-01-11] MEDS: ONDANSETRON INJ 2 MG/ML 2 ML VIAL IV PRN (07:30)
[2022-01-11] MEDS: HYDROCODONE/ACETAMOPHEN 5/325MG TAB PO PRN ×2 (07:30→20:18)
[2022-01-11 08:38] LABS: BUN Creatinine Ratio 17.6 (10-20); C Reactive Protein 4.67 mg/dl (0-0.5); Calcium 8.7 mg/dl (8.5-10.1); Creatinine Clr Calc Pharmacy 44.5 ml/min; Est GFR (African American) 73.4 ml/min; Est GFR (Non-African American) 63.4 ml/min; Potassium 3.8 mmol/L (3.5-5.1)
[2022-01-11 09:05] LABS: Basophils # (auto) 0.03 K/uL (0-0.2); Basophils % (auto) 0.4 %; Eosinophils # (auto) 0.04 K/uL (0-0.5); Eosinophils % (auto) 0.5 %; Hemoglobin 12.2 g/dL (12.0-16.0); Immature Granulocytes # (auto) 0.17 K/uL (0.00-0.02); Lymphocytes # (auto) 1.04 K/uL (1.2-3.4); Lymphocytes % (auto) 12.2 %; Mean Corpuscular Hemoglobin 34.9 pg (25-34); Mean Corpuscular Hgb Conc 32.1 g/dL (32-36); Mean Corpuscular Volume 108.6 fL (80-100); Mean Platelet Volume 10.6 fL (7.4-10.4); Monocytes # (auto) 1.14 K/uL (0.11-0.59); Monocytes % (auto) 13.3 %; Neutrophils # (auto) 6.13 K/uL (1.4-6.5); Neutrophils % (auto) 71.6 %; Platelet Count 493 K/uL (130-400); RDW Coefficient of Variation 15.4 % (11.5-14.5); RDW Standard Deviation 59.8 fL (36.4-46.3); White Blood Count 8.55 K/uL (4.8-10.8)
[2022-01-11] MEDS: PROPRANOLOL HCL 20 MG TAB PO SCH ×2 (09:08→20:17)
[2022-01-11] MEDS: SERTRALINE HCL 50 MG TABLET PO SCH (09:08)
[2022-01-11] MEDS: ADVANCED PROBIOTIC 1250 MG CAPSULE PO SCH (09:09)
[2022-01-11] MEDS: predniSONE 2.5 MG TAB PO SCH (09:10)
[2022-01-11] MEDS: CYANOCOBALAMIN (B-12) 500 MCG TABLET PO SCH (09:11)
[2022-01-11] MEDS: CHOLECALCIFEROL 5,000 UNITS 125 MCG TAB PO SCH (09:11)
[2022-01-11] MEDS: ASPIRIN 325 MG ECTAB PO SCH (09:11)
[2022-01-11] MEDS: HYDROXYUREA 500 MG CAP PO SCH (09:12)
[2022-01-11] MEDS: HEPARIN SOD 5,000 UNIT/0.5 ML VIAL SQ SCH ×2 (09:12→20:20)
[2022-01-11 10:01] LABS: Macrocytosis Present
[2022-01-11] MEDS: CEFEPIME 2,000 MG in SYRINGE 0 ML IV SCH ×2 (10:58→23:02)
[2022-01-11] MEDS: POLYETHYLENE (MIRALAX) 17 GM PACK PO SCH (13:31)
[2022-01-11] MEDS: SENNA 8.6 MG TAB PO SCH (13:32)
--- NOTE | 2022-01-11 14:37 | ENT Consultation ---
Date of Consultation January 11, 2022 Assessment & Plan (1) Osteomyelitis: (2) Bacterial infection due to Pseudomonas: 81yF with L>R nasopharyngeal infiltrative process s/p nasal endoscopy and nasopharyngeal biopsy 01/06/22. Pathology results consistent with inflammatory process, no signs of malignancy or vasculitis. Culture +pseudomonas. 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 Labs improving on IV abx. -Continue IV abx, will likely need 6 weeks -Recommend ID consult -OK for PO -Discussed with patient that infiltrative process does extend deep into the nasopharynx, it is possible additional pathology was not sampled on biopsy. If not improving, would recommend transfer to tertiary care center for evaluation by skull base surgeon -Care per primary team History of Present Illness Attending Physician: Gerry Cantrell History of Present Illness 81yF with recent history of headaches and sphenoid sinusitis now with infiltrative process of nasopharynx and L>R skull base with clival erosion on imaging (CT sinus and MRI skull base). Underwent nasal endoscopy with nasopharyngeal biopsy 01/06/22, pathology showed heavily inflamed granulation tissue, no malignancy on permanent or flow cytometry. Culture +pseudomonas. 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 She does have a history of radium tx to adenoid tissue as a child. She has developed a L middle ear effusion. Has had ongoing occipital headache, improved with pain medication. Denies diplopia, vision loss, facial numbness. Dysarthria improving subjectively. Allergies Allergy/AdvReac Type Severity Reaction Status Date / Time levofloxacin [From Levaquin] AdvReac Intermediate tongue Verified 01/09/22 14:37 swelling codeine AdvReac Mild NAUSEA Verified 01/09/22 14:37 morphine AdvReac Mild GI SYMPTOMS Verified 01/09/22 14:37 Sulfa (Sulfonamide AdvReac Mild NAUSEA Verified 01/09/22 14:37 Antibiotics) Home Medications Medication Instructions Recorded Confirmed Type aspirin 325 mg tablet,delayed 325 mg PO QAM tab 06/11/19 01/09/22 History release cyanocobalamin (vitamin B-12) 1,000 mcg PO QAM #90 tab 06/11/19 01/09/22 History 1,000 mcg tablet albuterol sulfate 90 mcg/actuation 1 - 2 puff INHALATION Q6H PRN #18 08/31/20 01/09/22 Rx aerosol inhaler gm propranolol 20 mg tablet 20 mg PO BID #180 tab 03/04/21 01/09/22 Rx cholecalciferol (vitamin D3) 25 1,000 unit PO QAM tab 10/14/21 01/09/22 History mcg (1,000 unit) tablet hydrocodone 5 mg-acetaminophen 325 1 tab PO Q6H PRN #14 tab 01/03/22 01/09/22 Rx mg tablet hydroxyurea 500 mg capsule 500 mg PO QAM 01/05/22 01/09/22 History sertraline 25 mg tablet 25 mg PO QAM 01/05/22 01/09/22 History prednisone 1 mg tablet 1 mg PO UD 01/09/22 01/09/22 History prednisone 1 mg tablet 2.5 mg PO UD 01/09/22 01/09/22 History Patient History Medical History Asthma Asthmatic bronchitis Essential thrombocythemia Stable on HU 500mg QD. History of TIA (transient ischemic attack) Hyperglycemia Hyperlipidemia Migraine hx Osteopenia after menopause Reactive depression TIA (transient ischemic attack) Several years ago Surgical History H/O reduction mammoplasty History of tonsillectomy and adenoidectomy Hx of abdominoplasty S/P left hemicolectomy Secondary mass (benign) Family History Father Cancer Emphysema lung Prostate cancer Mother Cancer Colorectal cancer Thyroid cancer Colon cancer Sister Breast cancer Cancer Colon cancer Uncle Lung cancer Uncle Lung cancer Denies family history of Ovarian cancer Heart disease Myocardial infarction Hypertension Stroke Asthma Social History Smoking Status: Former smoker Tobacco Type: Cigarettes Age Quit Using Tobacco: 35; Second Hand Exposure: No; Do You Dip or Chew Tobacco: No; Tobacco Cessation Education Requested by Patient: No Hx Alcohol Use: No Hx Substance Use: No Preferred Language: [place] Communication Ability: Effective Visual Impairment: Limited Hearing Ability: Normal Counter Top Maker Required: No Beliefs That Will Affect Care: None marital status: / Current Living Situation: Alone Current Living Situation Comment: Home current occupational status: retired How many Children do You have: 3 Other Information That Helps Us Care for You: No Feels Safe at Home: Yes Safety Concerns: Feels Safe At This Time Childhood Exposure to Second-Hand Smoke: Yes caffeine: Yes (drinks coffee daily ) Dental Care, Regularly: Yes Physical Activity Frequency: Daily Physical Activity Frequency Comment: tries to walk daily Seatbelt Use: always Sunscreen Use: Yes Assistive Devices: None Review of Systems Review of Systems: A 10 point ROS is negative except as noted above Physical Exam Physical Exam: General: No acute distress, nonlabored respirations Face: normal facial motion Eyes: Extraocular motion is intact. Normal sclera and conjunctiva. PERRL Nose: septal deviation right, bilateral ITH. Oral cavity: clear, mild asymmetry of oral tongue with fullness on left, no mucosal or submucosal lesions noted Oropharynx: clear, tonsils surgically absent. No fullness/erythema/mass/lesion of posterior pharyngeal wall or tonsillar fossae Neck: soft, no masses or lymphadenopathy CN II-XII intact except for very subtle L CN XII weakness/deviation with protrusion, improving Results & Data ([facility]) Vital Signs (Past 12 Hours) Vital Signs Temp Pulse Resp BP Pulse Ox 01/11/22 14:11 36.4 C L 69 16 110/70 95 01/11/22 07:01 36.8 C 66 16 145/75 H 93 Laboratory Results WBC 8 ESR normalized, initially 45 CRP 4 PG Care Time/CCT Total # of Minutes Spent Total Time Spent with Patient: Total time spent is greater than 50% in coordination of care (as documented) at patient's floor/unit and/or counseling patient: Coding Level of Care Code 83312 Initial Inpt Care Lvl 3 Diagnoses Osteomyelitis M86.9 Osteomyelitis location: unspecified site Osteomyelitis type: unspecified type Bacterial infection due to Pseudomonas A49.8 (1) Osteomyelitis Osteomyelitis location: unspecified site Osteomyelitis type: unspecified type Qualified Code(s): M86.9 - Osteomyelitis, unspecified
--- NOTE | 2022-01-11 20:55 | Hospitalist Progress Note ---
Date of Service January 11, 2022 Assessment & Plan (1) Osteomyelitis: Plan: Osteomyelitis of the CLIVUS/skull base. 2nd to Pseudomonas aeruginosa. s/p ENT surgery by Dr Manning on 01/06/22 with biopsy of nasopharyngeal "mass." Pathology with evidence of infection but no malignancy or signs of lymphoproliferative disorder seen on that biopsy. The pseudomonas on cultures from 01/06, CT/MRI findings, and clinical picture most compatible with osteomyelitis of the clivus/skull base and sphenoid sinusitis. Continue IV cefepime. Yoan JAUREGUI consult completed - 6 week course of IV cefepime advised. Continue hydrocodone prn for headaches/pain. Trend her inflammatory markers. CRP is mildly better today. Has been on prednisone as outpatient and was recently tapered to 2.5mg daily. Dr Mcclellan spoke with Dr Manning on day of admission - Dr Manning recommended against increasing the steroids at this time. Cont current dose for now. If patient fails to improve or worsens would need transfer to tertiary care center. Appreciate Dr Manning' consult today. I am uncertain why she has developed pseudomonas sinusitis. Certainly an atypical/uncommon pathogen for sinus disease. No malignancy seen on recent nasopharyngeal biopsy, nor was granulomatous disease seen (Mookie's, ANCA-associated disease). Peripheral smear without suspicious features of a lymphoproliferative d/o. Smear findings c/w essential thrombocytosis. (2) Sinusitis: Plan: Sphenoid As above clinically improved/stable (3) Bacterial infection due to Pseudomonas: Plan: cont IV cefepime recently had outpatient levaquin therapy intra-op cultures with intermediate sensitivity which likely contributed to treatment failure (4) Nasopharyngeal mass: Plan: As above biopsies negative for malignancy (5) Asthma: Plan: No acute issues Albuterol as needed (6) Headache: Plan: Secondary to sinusitis and osteomyelitis as above Continue hydrocodone prn Hopefully with treatment of the infection headaches will improve/resolve symptoms stable today (7) Osteopenia after menopause: Plan: Continue home vitamin D (8) Essential thrombocythemia: Plan: Does not follow with hematology Platelets in the 500s at this time Continue home hydroxyurea Peripheral smear reassuring today really should be followed by hematology for this problem (9) Reactive depression: Plan: Stable Continue home sertraline Continue propranolol which she uses for anxiety/panic attacks (10) History of TIA (transient ischemic attack): Plan: Continue aspirin Plan: DVT prophylaxis - SC heparin updated pt's daughter by phone extensively yesterday evening PT consult to ensure she is stable for home plan for PICC line placement tomorrow if blood cx's remain negative dispo planning Admission and Anticipated Discharge Date Admission Date: January 09, 2022 Subjective pt feeling better today she feels she has better control of her tongue she is swallowing without difficulty headaches are +/- better some no fevers appetite much improved; taste of food was better, too no new facial symptoms Review of Systems Review of Systems: gen - no fevers or chills, appetite better cv - no cp pulm - no dyspnea GI - constipation present; no diarrhea Physical Exam Physical Exam: gen - NAD, awake, alert, oriented x 3 face - no gross deformity of nose or other facial structures mouth - MMM; tongue - with protrusion the left tongue moves more normally and control of the left tongue muscles is improved from yesterday heart - RRR, s1 s2, no murmur lungs - CTA b/l abd - soft NT ND BS+ ext - no edema, pulses 2+ b/l neuro - all beauty operator are grossly intact except CN 12 as noted above (but this is improved today) Results & Data Results & Data ([facility]) Vital Signs (Past 12 Hours) Vital Signs Temp Pulse Resp BP Pulse Ox 01/11/22 20:15 95 H 16 114/63 01/11/22 14:11 36.4 C L 69 16 110/70 95 Laboratory Results Laboratory Results - last 24 hr 01/11/22 01/11/22 08:00 08:00 WBC 8.55 RBC 3.50 L Hgb 12.2 Hct 38.0 MCV 108.6 H MCH 34.9 H MCHC 32.1 RDW Std Deviation 59.8 H RDW Coeff of Dwayne 15.4 H Plt Count 493 H MPV 10.6 H Immature Gran % (Auto) 2.0 Neut % (Auto) 71.6 Lymph % (Auto) 12.2 [place] % (Auto) 13.3 Eos % (Auto) 0.5 Baso % (Auto) 0.4 Neut # (Auto) 6.13 Lymph # (Auto) 1.04 L [place] # (Auto) 1.14 H Eos # (Auto) 0.04 Baso # (Auto) 0.03 Immature Gran # (Auto) 0.17 H Macrocytosis Present Peripher Smr Path Cons Sodium 136 Potassium 3.8 Chloride 102 Carbon Dioxide 28 Anion Gap 6 BUN 15 Creatinine 0.85 Est Cr Clr Drug Dosing 44.5 Est GFR ( Amer) 73.4 Est GFR (Non-Af Amer) 63.4 BUN/Creatinine Ratio 17.6 Glucose 99 Calcium 8.7 C-Reactive Protein 4.67 H Diagnostic Findings peripheral smear - no suspicious features for lymphoproliferative d/o or malignancy blood cx's x 2 sets negative PG Care Time/CCT Total # of Minutes Spent Total Time Spent with Patient: Total time spent is greater than 50% in coordination of care (as documented) at patient's floor/unit and/or counseling patient: Coding Level of Care Code 28863 Subseq Hosp Care Lvl 2 Diagnoses Osteomyelitis M86.9 Osteomyelitis location: unspecified site Osteomyelitis type: unspecified type Sinusitis J32.9 Chronicity: unspecified Sinusitis location: unspecified location Bacterial infection due to Pseudomonas A49.8 Nasopharyngeal mass J39.2 Asthma J45.909 Headache R51.9 Osteopenia after menopause M85.80 Essential thrombocythemia D47.3 Reactive depression F32.9 History of TIA (transient ischemic attack) Z86.73 (1) Sinusitis Chronicity: unspecified Sinusitis location: unspecified location Qualified Code(s): J32.9 - Chronic sinusitis, unspecified (2) Osteomyelitis Osteomyelitis location: unspecified site Osteomyelitis type: unspecified type Qualified Code(s): M86.9 - Osteomyelitis, unspecified
[2022-01-12 06:31] LABS: Hematocrit (blood only) 37.9 % (37-47); Hemoglobin 12.3 g/dL (12.0-16.0); Mean Corpuscular Hemoglobin 35.3 pg (25-34); Mean Corpuscular Hgb Conc 32.5 g/dL (32-36); Mean Corpuscular Volume 108.9 fL (80-100); Mean Platelet Volume 10.6 fL (7.4-10.4); Platelet Count 437 K/uL (130-400); RDW Coefficient of Variation 15.2 % (11.5-14.5); RDW Standard Deviation 59.5 fL (36.4-46.3); Red Blood Count 3.48 M/uL (4.2-5.4); White Blood Count 7.96 K/uL (4.8-10.8)
[2022-01-12 06:53] LABS: BUN Creatinine Ratio 19.4 (10-20); Calcium 8.6 mg/dl (8.5-10.1); Creatinine Clr Calc Pharmacy 38.6 ml/min; Est GFR (African American) 61.8 ml/min; Est GFR (Non-African American) 53.3 ml/min; Potassium 3.9 mmol/L (3.5-5.1)
[2022-01-12] MEDS: ADVANCED PROBIOTIC 1250 MG CAPSULE PO SCH (08:57)
[2022-01-12] MEDS: SERTRALINE HCL 50 MG TABLET PO SCH (08:57)
[2022-01-12] MEDS: CHOLECALCIFEROL 5,000 UNITS 125 MCG TAB PO SCH (08:58)
[2022-01-12] MEDS: HEPARIN SOD 5,000 UNIT/0.5 ML VIAL SQ SCH (08:58)
[2022-01-12] MEDS: SENNA 8.6 MG TAB PO SCH (08:58)
[2022-01-12] MEDS: CYANOCOBALAMIN (B-12) 500 MCG TABLET PO SCH (08:58)
[2022-01-12] MEDS: predniSONE 2.5 MG TAB PO SCH (08:58)
[2022-01-12] MEDS: PROPRANOLOL HCL 20 MG TAB PO SCH (08:58)
[2022-01-12] MEDS: ASPIRIN 325 MG ECTAB PO SCH (08:58)
[2022-01-12] MEDS: HYDROXYUREA 500 MG CAP PO SCH (08:58)
[2022-01-12] MEDS: POLYETHYLENE (MIRALAX) 17 GM PACK PO SCH (08:59)
[2022-01-12] MEDS: HYDROCODONE/ACETAMOPHEN 5/325MG TAB PO PRN (11:02)
[2022-01-12] MEDS: CEFEPIME 2,000 MG in SYRINGE 0 ML IV SCH (11:03)
[2022-01-12] MEDS: ONDANSETRON INJ 2 MG/ML 2 ML VIAL IV PRN (11:03)
--- NOTE | 2022-01-12 18:11 | Discharge Summary ---
Date of Service date of admission - January 09, 2022 date of discharge - January 12, 2022 Admission HPI Per Admitting Provider This pt is an 81 y/o F with a PMH of hyperlipidemia, asthma, migraines, TIA, thyroid goiter, essential thrombocytosis with JAK2 mutation, laryngopharyngeal reflux, and depression who has recently been dealing with a recurrent Pseudomonas sphenoid sinusitis and headaches since 09/2021. She has been treated initially with amoxicillin and had no improvement. She then was seen by ENT and had a culture which grew out Pseudomonas. She did take levofloxacin and had some improvement at that time and has also been on prednisone burst and tapers frequently since October. She was started back on levofloxacin again a little over a week ago and after 2 doses, noted left-sided tongue swelling and difficulty swallowing. She was seen in the ER and it was thought to be an allergic reaction to levofloxacin. That medication was discontinued and she was discharged home. However, during that ER visit on 01/[address] of the sinuses which showed abnormal retropharyngeal/posterior nasopharynx soft tissue eccentric to the left with infiltration of the adjacent soft tissues and loss of fat planes with possible associated erosion of the clivus suspicious for a neoplastic process. This was new from the previous imaging 1 month earlier. She was seen again by ENT 2 days later and was recommended to have urgent diagnostic nasal endoscopy with biopsy of the nasopharynx. This was performed on 01/06 and the cultures from that procedure again are growing 2 different strains of Pseudomonas aeruginosa. The biopsy was reported to ENT by pathology as heavily inflamed granulation tissue, negative for fungal/CMV/HSV. Negative for lymphoproliferative disorder. She has had persistent at times severe headaches in the posterior occiput. She is continuing to have difficulty swallowing and speaking due to the left-sided tongue swelling which may be due to a subtle paresis of cranial nerve XII due to its proximity to the infection as per ENT. She has been taking hydrocodone for the headaches. She denies any fevers/sweats/chills. No nausea or vomiting, no visual changes, no weakness or numbness or tingling anywhere else. She was referred to the ER by Dr. Manning of ENT to be admitted for IV antibiotics for skull base osteomyelitis. Principal Diagnosis 1. pseudomonas sphenoid sinusitis 2. osteomyelitis of the skull base Discharge Exam gen - NAD, awake, alert, oriented x 3 face - no gross deformity of nose or other facial structures; no tenderness of any facial structure mouth - MMM; tongue - with protrusion the left tongue movement and control of the left tongue muscles is improved from previous exams heart - RRR, s1 s2, no murmur lungs - CTA b/l abd - soft NT ND BS+ ext - no edema, pulses 2+ b/l neuro - all generator mechanic are grossly intact except CN 12 as noted above Discharge Data Allergies Allergy/AdvReac Type Severity Reaction Status Date / Time levofloxacin [From Levaquin] AdvReac Intermediate tongue Verified 01/09/22 14:37 swelling codeine AdvReac Mild NAUSEA Verified 01/09/22 14:37 morphine AdvReac Mild GI SYMPTOMS Verified 01/09/22 14:37 Sulfa (Sulfonamide AdvReac Mild NAUSEA Verified 01/09/22 14:37 Antibiotics) Consultations [facility] Otolaryngology - Felix Manning MD Physical therapy Speech therapy Procedures Performed u/s-guided peripheral IV Hospital Course (1) Osteomyelitis: Osteomyelitis of the CLIVUS/skull base as seen on recent outpatient imaging. Presumed 2nd to Pseudomonas aeruginosa. s/p ENT surgery by Dr Manning on 01/06/22 with biopsy of nasopharyngeal "mass." Pathology with evidence of infection but no malignancy or signs of lymphoproliferative disorder seen on that biopsy. No evidence of granulomatous disease on that biopsy either (ie no ANCA-associated vasculitis). The pseudomonas on cultures from 01/06/22, CT/MRI findings, and clinical picture most compatible with osteomyelitis of the clivus/skull base and sphenoid sinusitis. She was placed on IV cefepime at time of admission. [facility] ID consult was completed and they advised a 6 week course of IV cefepime 2gm BID with stop date of 02/20/22. She will need weekly CBC, CMP, and CRP while on the IV cefepime. Results will be forwarded to her PCP. She will continue hydrocodone prn for headaches/pain. Of note - CRP was 4.5 at admission, rising to >6, and then falling to 4.6 before discharge. She has been on prednisone as outpatient since of this year and was recently tapered to 2.5mg daily. This dose was continued while here and will be continued at discharge. If patient fails to improve or if she worsens she would need management at a tertiary care center. She will need follow-up with her PCP within 1-2 weeks of discharge, and follow- up with Dr Manning in 1 week. (2) Sinusitis: Sphenoid As above in #1 clinically improved/stable while hospitalized Certainly pseudomonas sinusitis is atypical and the exact underlying risk factor for this is not readily apparent. Of note - peripheral smear was performed by pathology this admission and there were no features of a lymphoproliferative disorder. (3) Bacterial infection due to Pseudomonas: recently had outpatient levaquin therapy for her pseudomonas sinusitis. 01/06/22 intra-op cultures showed intermediate sensitivity to levaquin which likely contributed to treatment failure. she will take a 6-week course of IV cefepime at home with stop date 02/20/22. (4) Nasopharyngeal mass: As above 01/06/22 biopsies negative for malignancy or granulomatous disease (5) Asthma: No acute issues during the stay Albuterol as needed (6) Headache: Secondary to sinusitis and osteomyelitis as above Continue hydrocodone prn Hopefully with treatment of the infection headaches will improve/resolve symptoms stable prior to discharge (7) Osteopenia after menopause: Continue home vitamin D (8) Essential thrombocythemia: Platelets in the 400s/500s during the stay Continue home hydroxyurea Peripheral smear reassuring as noted above I encouraged her to establish care with hematology in the future to follow this condition (9) Reactive depression: Stable Continue home sertraline Continue propranolol which she uses for anxiety/panic attacks (10) History of TIA (transient ischemic attack): Continue aspirin 325mg daily (11) Constipation: Will need to take a combination of senna + miralax at home due to narcotic usage for her headaches. 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 It is suspected that her sinusitis/nasopharyngeal inflammation is the cause of this impairment. The weakness improved while here. Seen by speech therapy - cleared for regular diet. It is hoped that she regains full recovery of the nerve function with time. Patient was seen by PT and cleared for home with her daughter. Home health services were arranged due to prolonged IV antibiotic usage for her osteomyelitis. Home Health Attestation I certify that this patient is under my care and that I, or a physicians assistant engineer working with me, had a face to-face encounter that meets the home health [id number] encounter requirements with this patient. The encounter with the patient was in whole, or in part, for the following medical condition, which is the primary reason for home health care (list medical condition): osteomyelitis-sinusitis I certify that, based on my findings, the following services are medically necessary home health services: My clinical findings support the need for the above services because: Skilled Nsg Assessment Skilled Nsg Instruction New Medications Skilled Nsg Assess Pt Illness, Disease and Sx Monitoring Further, I certify that my clinical findings support that this patient is homebound (i.e. absences from home require considerable and taxing effort and are for medical reasons or buddhism services or infrequently or of short duration when for other reasons) because: Transportation Assistance/Unable to Leave Home Unassisted Certification for Home Health Services: Based on the above findings, I certify that this patient is confined to the home and needs intermittent fpc care, physical therapy and/or speech therapy or continues to need occupational therapy. The patient is under my care, and I have initiated the establishment of the plan of care. This patient will be followed by a physician who will periodically review the plan of care. Total Time Total Time Spent Total Time Spent (In Minutes): 60 Discharge Plan Discharge Items Patient Disposition: Home - Home Health Services Reason For Visit: Sinusitis, Bone infection of skull base Discharge Diagnosis: 1. sphenoid sinusitis due to pseudomonas infection 2. osteomyelitis (bone infection) of base of skull 3. impairment of the left side of the tongue - likely due to irritation of the nerve that controls the tongue muscles - improving Activity: Resume your previous activity Activity Comment: as tolerated Bathing Comment: please keep left arm IV covered/clean/dry during showers; no tub baths Driving/Machine Use: No driving if taking narcotic pain killer medication Non-emergency contact: Primary Care Provider and Specialist Call non-emergency contact if: you have any medication questions, your symptoms worsen, your pain is not controlled, your pain is worsening, your pain is unusual for you, your pain is concerning for you and you have a fever Follow-up/Referrals: Jamal Garcia MD [Primary Care Provider] - (1-2 weeks; Dr Garcia's office will also be following your blood work ) Felix Manning MD [Physician] - (1 week; we will help arrange this for you ) Diet: Regular Addtl Attending Provider Instructions: Landen Gibbs were admitted to [facility] due to ongoing infection of the sphenoid sinus as well as the skull bone adjacent to that sinus. Recent imaging of the brain showed that this bone contained infection. This is called "osteomyelitis." The culprit bacterium is pseudomonas. During your stay you received IV antibiotics, pain medication for your headaches, and had a consult with [facility] Infectious Disease. They advised a 6 week course of IV antibiotics (cefepime) with stop date of February 20, 2022. Your blood cultures during this admission were negative. Dr Manning from ENT saw you in consult as well. Also during your hospitalization we had speech therapy see you to make sure that your swallowing was intact. Speech felt that you are indeed swallowing normally and they see no signs of aspiration (liquid going into the lung while drinking fluids). The tongue movements on the left side of your tongue are improving. It is thought that the nerve that controls muscle function of the left side of the tongue is irritated as a result of your infection. It is hoped that the tongue movements return to normal as the infection resolves. Our IV team placed a special IV in your left arm for home IV antibiotics. This IV can likely be used for most of your antibiotic course. Please keep the IV clean/dry. OK to shower, but do not immerse the arm by taking a tub bath or swimming. Finally, we had our pathology physician look at your blood under the microscope and this only showed your platelet disorder (essential thrombocytosis). We did not see signs of leukemia or other blood disorders/blood cancer. Recommendations - 1. IV cefepime twice daily (about 12 hours apart) until February 20, 2022; first dose TONIGHT upon return home 2. probiotics daily while you receive your antibiotic course 3. pain medication - * hydrocodone-acetaminophen - 1 tablet every 6 hours as needed for headache/pain; 30 tabs sent to your pharmacy for you * Dr Manning recently prescribed oxycodone on 01/06/22; please do not take the oxycodone since you will be on the hydrocodone pain pill * the prescribed hydrocodone contains tylenol; thus, do not take extra tylenol while taking this narcotic pain killer medication * hydrocodone can make you sleepy -- do not drink alcohol while taking this medication, and do NOT drive a car while taking this medication * hydrocodone can cause significant constipation as well 4. constipation - I would recommend a combination of [id number] miralax with senakot every day as long as you are taking the hydrocodone pain pill 5. weekly labs will be drawn over the next 6 weeks; these labs will go to Dr Garcia for his review 6. follow-up - see separate section Return to [facility] if - * you have fevers over 100 degrees * you have severe headaches that are not responding to your pain medication * you have significant constipation * you have severe diarrhea * you have any concerns about your left arm IV site * you are having trouble swallowing * any other concerns It was our pleasure to care for you at [facility]! Please continue to feel better, Dr Cantrell Pending Studies at Discharge: Yes Studies:: Blood cultures, but thus far negative (no evidence of bacterial infection in the blood) Stand-Alone Forms: [facility], Smoking Cessation Medications and DC Order Prescriptions: New cefepime 2 gram recon soln 2 g IV Q12H Qty: 80 RF: 0 Advanced Probiotic 625 mg (10 billion cell) Capsule 2 cap PO DAILY Qty: 60 RF: 1 Continued albuterol sulfate 90 mcg/actuation HFA aerosol inhaler 1 - 2 puff inhalation Q6H PRN (Reason: bronchospasm) Qty: 18 RF: 3 propranolol 20 mg tablet 20 mg PO BID Qty: 180 RF: 3 aspirin 325 mg tablet,delayed release (DR/EC) 325 mg PO QAM RF: 0 cyanocobalamin (vitamin B-12) 1,000 mcg tablet 1,000 mcg PO QAM Qty: 90 RF: 0 cholecalciferol (vitamin D3) 25 mcg (1,000 unit) tablet 1,000 unit PO QAM RF: 0 prednisone 1 mg tablet 2.5 mg PO UD RF: 0 prednisone 1 mg Tablet 1 mg PO UD RF: 0 hydrocodone-acetaminophen 5-325 mg tablet 1 tab PO Q6H PRN (Reason: pain) Qty: 30 RF: 0 hydroxyurea 500 mg capsule 500 mg PO QAM RF: 0 sertraline 25 mg tablet 25 mg PO QAM RF: 0 Discharge Orders: Discharge Order (Routine); Ordered 01/12/22 Ordered By: Gerry Cantrell Admission Data Admit Date/Time: 01/09/22 14:15 Attending Provider: Gerry Cantrell Admit Provider: Anitha Mcclellan Primary Care Provider: Jamal Garcia Other Providers: Anitha Mcclellan ; Heriberto Willis ; Mikey Shaikh ; David Patel I. ; Connor Daniel II ; Linh Paez ; Scot Guerra ; Aubrey Pretty ; [facility] ; Felix Manning Other Interventions: Discharge Summary Assessment (RN) Last Done: 01/12/22 18:22 Coding Level of Care Code D/C DAY MANAGEMENT >30 MINS Diagnoses Osteomyelitis M86.9 Osteomyelitis location: unspecified site Osteomyelitis type: unspecified type Sinusitis J32.9 Chronicity: unspecified Sinusitis location: unspecified location Bacterial infection due to Pseudomonas A49.8 Nasopharyngeal mass J39.2 Asthma J45.909 Headache R51.9 Osteopenia after menopause M85.80 Essential thrombocythemia D47.3 Reactive depression F32.9 History of TIA (transient ischemic attack) Z86.73 Constipation K59.00 Cranial nerve impairment G52.9
== END 2022-01-12 18:37 | disposition home health service (06) | DRG 540 ==
LOC: ED 11:38 → SUATTDRO 14:15 → 3N 14:15
DX: Z87.891 Personal history of nicotine dependence; Z79.899 Other long term (current) drug therapy; B96.5 Pseudomonas (aeruginosa) (mallei) (pseudomallei) as the cause of diseases classified elsewhere; D47.3 Essential (hemorrhagic) thrombocythemia; R22.0 Localized swelling, mass and lump, head; M86.8X8 Other osteomyelitis, other site; J31.0 Chronic rhinitis; J45.909 Unspecified asthma, uncomplicated; J39.0 Retropharyngeal and parapharyngeal abscess; D10.6 Benign neoplasm of nasopharynx; M85.80 Other specified disorders of bone density and structure, unspecified site; R51.9 Headache, unspecified; G44.89 Other headache syndrome; Z88.5 Allergy status to narcotic agent; F32.A Depression, unspecified; Z88.2 Allergy status to sulfonamides; Z79.82 Long term (current) use of aspirin; F32.9 Major depressive disorder, single episode, unspecified; Z86.73 Personal history of transient ischemic attack (TIA), and cerebral infarction without residual deficits; J32.3 Chronic sphenoidal sinusitis; Z88.1 Allergy status to other antibiotic agents; Z66 Do not resuscitate; G52.3 Disorders of hypoglossal nerve

== ENCOUNTER 2022-01-13 03:42 | Observation (INO) ==
[2022-01-13] MEDS ORDERED: ONDANSETRON INJ 2 MG/ML 2 ML VIAL ONE (04:03)
[2022-01-13] MEDS ORDERED: ONDANSETRON INJ 2 MG/ML 2 ML VIAL IV STA (04:18)
--- NOTE | 2022-01-13 04:25 | Emergency Department Note ---
Impression & Plan Vomiting, Leukocytosis [facility] ED Provider Note NAME: ROBIN MONZON AGE: 81 SEX: F ARRIVES VIA: Ambulance INFORMANT: Patient ED PROVIDER(S): Radha Vásquez DO CHIEF COMPLAINT: Vomiting PLAN: Disposition: Admit to the [facility] service Condition: Stable MEDICAL DECISION MAKING: This is an 81-year-old female patient presents to the emergency department with profuse vomiting. 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 The patient had been doing well since the time of discharge until she went to sleep last night and awoke with such significant nausea and vomiting. Upon presentation to the ER, she received IV Zofran and was able to stop vomiting but now has persistent tachycardia despite receiving IV crystalloid therapy and has an increasing white count compared to what it was upon discharge from the hospital. [facility] and they will evaluate her for further inpatient management. Triage Nursing notes reviewed and agree with them. Prior medical records reviewed Vital Signs: reviewed and remarkable for tachycardia Differential diagnosis: Cardiac ischemia; medication side effects; worsening infection; sepsis ER treatment provided: IV normal saline IV Zofran Diagnostics interpreted by me: ECG: Sinus tachycardia at a rate of 105 with PVCs. There are no signs of ischemia or ST segment elevation Cardiac Monitoring: Sinus tachycardia at 111 Laboratory studies: See below HPI: 81/F arrives for evaluation of vomiting. Patient had been admitted at the hospital for a sinus infection on IV antibiotics. She was discharged earlier today with a midline in place for IV antibiotic infusion. She states she felt good upon discharge and went home and ate lasagna. She was doing fine until she went to sleep tonight and woke up with significant nausea and vomiting. Patient did take a hydrocodone before bed. She has taken them in the past but usually takes Zofran with them. ROS: See above HPI for pertinent positives & negatives. A total of 10 systems reviewed and were otherwise negative. PAST MEDICAL HISTORY:See Below PAST SURGICAL HISTORY:See Below FAMILY HISTORY:See Below SOCIAL HISTORY:See Below HOME MEDICATIONS:See list ALLERGIES:See list VITALS:See Below PHYSICAL EXAMINATION: HEENT: Head - normocephalic and atraumatic. Pupils are equal, round, and reactive to light. Extraocular eye muscles are intact, and sclera are anicteric. Nose - moist nasal mucosa without discharge. Mouth - moist buccal mucosa. Oropharynx is nonerythematous and there is no tonsillar exudate or edema noted. Neck: Supple; no JVD, nuchal rigidity, cervical lymphadenopathy, or auscultated bruits. Heart: Tachycardic rate and regular rhythm. There is a normal S1 and S2 with no murmurs, clicks, or gallops appreciated. Lungs: Clear to auscultation bilaterally with no wheezes, rales, or rhonchi. Abdomen: Soft, completely nontender, nondistended, with good bowel sounds. There are no palpable pulsatile masses or hepatosplenomegaly. There is no guarding, rigidity, or rebound noted. Extremities: No evidence of cyanosis, clubbing, or edema. There are easily palpable peripheral pulses. Skin: Pale, warm and diaphoretic with good turgor and no rashes. ED COURSE: Times/Reassessments: 350: The patient was evaluated in room A10. Complete history and physical was performed. Order was placed for continuous cardiac monitoring. The patient was in a sinus tachycardia at 111. The patient was given a dose of IV Zofran as she was dry heaving and vomiting on my exam. She was given a 500 cc bolus of normal saline solution. She had a twelve-lead EKG done. I discussed the case with Dr. Cantrell who is familiar with the patient's case and he will evaluate for further management. Radha Vásquez, Past Med/Surg History Medical History Asthma Asthmatic bronchitis Bacterial infection due to Pseudomonas sphenoid sinusitis - 12/2021 Essential thrombocythemia Stable on HU 500mg QD. 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 Reactive depression Sinusitis sphenoid, 12/2021 TIA (transient ischemic attack) Several years ago Surgical History H/O reduction mammoplasty History of tonsillectomy and adenoidectomy Hx of abdominoplasty S/P left hemicolectomy Secondary mass (benign) Family History Father Cancer Emphysema lung Prostate cancer Mother Cancer Colorectal cancer Thyroid cancer Colon cancer Sister Breast cancer Cancer Colon cancer Uncle Lung cancer Uncle Lung cancer Denies family history of Ovarian cancer Heart disease Myocardial infarction Hypertension Stroke Asthma Social History Smoking Status: Former smoker Tobacco Type: Cigarettes Age Quit Using Tobacco: 35; Second Hand Exposure: No; Hx Alcohol Use: No Hx Substance Use: No Preferred Language: [place] Verde[place] Communication Ability: Effective Visual Impairment: Limited Hearing Ability: Normal 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 Beliefs That Will Affect Care: None marital status: / Current Living Situation: Alone Current Living Situation Comment: Home 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 How many Children do You have: 3 Other Information That Helps Us Care for You: No Feels Safe at Home: Yes Safety Concerns: Feels Safe At This Time Childhood Exposure to Second-Hand Smoke: Yes caffeine: Yes (drinks coffee daily ) Dental Care, Regularly: Yes Physical Activity Frequency: Daily Physical Activity Frequency Comment: tries to walk daily Seatbelt Use: always Sunscreen Use: Yes Assistive Devices: None Allergies Allergies Allergy/AdvReac Type Severity Reaction Status Date / Time levofloxacin [From Levaquin] AdvReac Intermediate tongue Verified 01/09/22 14:37 swelling codeine AdvReac Mild NAUSEA Verified 01/09/22 14:37 morphine AdvReac Mild GI SYMPTOMS Verified 01/09/22 14:37 Sulfa (Sulfonamide AdvReac Mild NAUSEA Verified 01/09/22 14:37 Antibiotics) Home Meds Home Medications Medication Instructions Recorded Confirmed aspirin 325 mg tablet,delayed 325 mg PO QAM tab 06/11/19 01/13/22 release cyanocobalamin (vitamin B-12) 1,000 mcg PO QAM #90 tab 06/11/19 01/13/22 1,000 mcg tablet cholecalciferol (vitamin D3) 25 1,000 unit PO QAM tab 10/14/21 01/13/22 mcg (1,000 unit) tablet hydroxyurea 500 mg capsule 500 mg PO QAM 01/05/22 01/13/22 sertraline 25 mg tablet 25 mg PO QAM 01/05/22 01/13/22 prednisone 1 mg tablet 1 mg PO UD 01/09/22 01/13/22 prednisone 1 mg tablet 2.5 mg PO UD 01/09/22 01/13/22 Previous Rx's Medication Instructions Recorded albuterol sulfate 90 mcg/actuation 1 - 2 puff INHALATION Q6H PRN #18 08/31/20 aerosol inhaler gm propranolol 20 mg tablet 20 mg PO BID #180 tab 03/04/21 L.acidop,casei,lactis,rham-B.lact,mimi 2 cap PO DAILY #60 cap 01/12/22 625 mg (10 billion cell) capsule (Advanced Probiotic) cefepime 2 gram solution for 2 g IV Q12H #80 vial 01/12/22 injection hydrocodone 5 mg-acetaminophen 325 1 tab PO Q6H PRN #30 tab 01/12/22 mg tablet Results & Data (ED) Vital Signs Vital Signs - 24 hr 01/13/22 03:55 01/13/22 04:16 01/13/22 04:20 Temperature 36.9 C 36.9 C Temperature Source Oral Oral Pulse Rate 111 H 102 H Pulse Rate [Apical] 109 H Pulse Rhythm Regular Regular Pulse Rhythm [Apical] Regular Pulse Strength Normal Pulse Strength [Apical] Normal Respiratory Rate 18 18 18 Respiratory Effort / Characteristics Non-Labored Spontaneous Non-Labored Spontaneous Respiratory Depth Normal Normal Respiratory Pattern Regular Regular Blood Pressure 139/100 Blood Pressure [Right Arm] 139/100 Blood Pressure Mean 113 Blood Pressure Mean [Right Arm] 113 Blood Pressure Position Lying Blood Pressure Position [Right Arm] Lying Pulse Oximetry 99 96 96 Oxygen Delivery Method Room Air Room Air Room Air Sepsis Recent Fever Within 48 Hours No Sepsis New/Unexplained Change in Mental Status No Sepsis Action Taken by Nursing No Action Required 01/13/22 06:00 01/13/22 07:46 01/13/22 08:33 Temperature Temperature Source Pulse Rate Pulse Rate [Apical] 96 H 124 H 102 H Pulse Rhythm Pulse Rhythm [Apical] Regular Regular Regular Pulse Strength Pulse Strength [Apical] Normal Respiratory Rate 18 18 18 Respiratory Effort / Characteristics Non-Labored Spontaneous Non-Labored Spontaneous Non-Labored Spontaneous Respiratory Depth Normal Normal Normal Respiratory Pattern Regular Blood Pressure Blood Pressure [Right Arm] 139/100 134/92 125/70 Blood Pressure Mean Blood Pressure Mean [Right Arm] 113 106 88 Blood Pressure Position Blood Pressure Position [Right Arm] Lying Pulse Oximetry 96 96 96 Oxygen Delivery Method Room Air Room Air Room Air Sepsis Recent Fever Within 48 Hours Sepsis New/Unexplained Change in Mental Status Sepsis Action Taken by Nursing Laboratory Data Result diagrams: 01/13/22 04:55 01/13/22 04:55 Lab Results 01/13/22 01/13/22 01/13/22 Range/Units 04:55 04:55 07:20 WBC 13.74 H (4.8-10.8) K/uL RBC 3.96 L (4.2-5.4) M/uL Hgb 14.5 (12.0-16.0) g/dL Hct 43.7 (37-47) % MCV 110.4 H (80-100) fL MCH 36.6 H (25-34) pg MCHC 33.2 (32-36) g/dL RDW Std Deviation 60.3 H (36.4-46.3) fL RDW Coeff of Dwayne 15.1 H (11.5-14.5) % Plt Count 672 H D (130-400) K/uL MPV 11.1 H (7.4-10.4) fL Immature Gran % (Auto) 1.5 % Neut % (Auto) 90.1 % Lymph % (Auto) 3.5 % [place] % (Auto) 4.6 % Eos % (Auto) 0.2 % Baso % (Auto) 0.1 % Neut # (Auto) 12.37 H (1.4-6.5) K/uL Lymph # (Auto) 0.48 L (1.2-3.4) K/uL [place] # (Auto) 0.63 H (0.11-0.59) K/uL Eos # (Auto) 0.03 (0-0.5) K/uL Baso # (Auto) 0.02 (0-0.2) K/uL Immature Gran # (Auto) 0.21 H (0.00-0.02) K/uL RBC Morphology Unremarkable Sodium 137 (136-145) mmol/L Potassium 3.4 L (3.5-5.1) mmol/L Chloride 101 (98-107) mmol/L Carbon Dioxide 23 (21-32) mmol/L Anion Gap 13 H (3-11) BUN 22 (6-23) mg/dl Creatinine 1.04 (0.6-1.2) mg/dl Est Cr Clr Drug Dosing 36.6 ml/min Est GFR ( Amer) 57.5 ml/min Est GFR (Non-Af Amer) 49.6 ml/min BUN/Creatinine Ratio 21.2 H (10-20) Glucose 155 H (70-99(Fasting)) mg/dl Calcium 9.4 (8.5-10.1) mg/dl Magnesium (1.7-2.4) mg/dl Total Bilirubin 0.8 (0.2-1.0) mg/dl AST 22 (13-39) U/L ALT 19 (7-52) U/L Alkaline Phosphatase 104 (34-104) U/L C-Reactive Protein (0-0.5) mg/dl Total Protein 6.5 (6.0-8.3) gm/dl Albumin 4.0 (3.4-5.0) gm/dl Globulin 2.5 (2.5-4.0) gm/dl Albumin/Globulin Ratio 1.6 (0.9-2) Lipase (11-82) U/L Procalcitonin (0-0.5) ng/ml SARS-CoV-2, RNA, NAAT NEGATIVE (NEGATIVE) 01/13/22 01/13/22 Range/Units 07:54 07:54 WBC (4.8-10.8) K/uL RBC (4.2-5.4) M/uL Hgb (12.0-16.0) g/dL Hct (37-47) % MCV (80-100) fL MCH (25-34) pg MCHC (32-36) g/dL RDW Std Deviation (36.4-46.3) fL RDW Coeff of Dwayne (11.5-14.5) % Plt Count (130-400) K/uL MPV (7.4-10.4) fL Immature Gran % (Auto) % Neut % (Auto) % Lymph % (Auto) % [place] % (Auto) % Eos % (Auto) % Baso % (Auto) % Neut # (Auto) (1.4-6.5) K/uL Lymph # (Auto) (1.2-3.4) K/uL [place] # (Auto) (0.11-0.59) K/uL Eos # (Auto) (0-0.5) K/uL Baso # (Auto) (0-0.2) K/uL Immature Gran # (Auto) (0.00-0.02) K/uL RBC Morphology Sodium (136-145) mmol/L Potassium (3.5-5.1) mmol/L Chloride (98-107) mmol/L Carbon Dioxide (21-32) mmol/L Anion Gap (3-11) BUN (6-23) mg/dl Creatinine (0.6-1.2) mg/dl Est Cr Clr Drug Dosing ml/min Est GFR ( Amer) ml/min Est GFR (Non-Af Amer) ml/min BUN/Creatinine Ratio (10-20) Glucose (70-99(Fasting)) mg/dl Calcium (8.5-10.1) mg/dl Magnesium 2.0 (1.7-2.4) mg/dl Total Bilirubin (0.2-1.0) mg/dl AST (13-39) U/L ALT (7-52) U/L Alkaline Phosphatase (34-104) U/L C-Reactive Protein 2.56 H (0-0.5) mg/dl Total Protein (6.0-8.3) gm/dl Albumin (3.4-5.0) gm/dl Globulin (2.5-4.0) gm/dl Albumin/Globulin Ratio (0.9-2) Lipase 23 (11-82) U/L Procalcitonin 0.32 (0-0.5) ng/ml SARS-CoV-2, RNA, NAAT (NEGATIVE) Administered Medications Acetaminophen (Acetaminophen 325 Mg Tab) 650 mg PO Q4H PRN PRN Reason: Pain or Fever Stop: 02/12/22 10:07 Last Admin: 01/13/22 15:03 Dose: 650 mg Documented by: [id number] Aspirin (Aspirin 325 Mg Ectab) [address] [facility] Stop: 02/12/22 10:07 Last Admin: 01/13/22 11:26 Dose: 325 mg Documented by: [id number] Hydroxyurea (Hydroxyurea 500 Mg Cap) [address] [facility] Stop: 02/12/22 10:07 Last Admin: 01/13/22 11:25 Dose: 500 mg Documented by: [id number] Cosigned by: [id number] Potassium Chloride/Sodium Chloride (Normal Saline W/20 Meq Kcl) 20 meq in 1,000 mls @ 100 mls/hr IV .Q10H MC; Protocol Stop: 02/12/22 07:29 Last Admin: 01/13/22 18:29 Dose: 125 mls/hr Documented by: [id number] Infusion: 01/13/22 17:52 Dose: 0 mls/hr Documented by: [id number] Admin: 01/13/22 07:52 Dose: 125 mls/hr Documented by: [id number] Hydrocortisone Sodium (Succinate 50 mg/ Syringe) 1 mls @ 4 mls/min IV TID MC Stop: 02/12/22 13:59 Last Admin: 01/13/22 21:04 Dose: 4 mls/min Documented by: [id number] Admin: 01/13/22 15:03 Dose: 4 mls/min Documented by: [id number] Cefepime HCl 2,000 mg/ Syringe 20 mls @ 5 mls/min IV Q12H [facility] Stop: 02/20/22 20:59 Last Admin: 01/13/22 21:04 Dose: 5 mls/min Documented by: [id number] Famotidine 20 mg/ Syringe 5 mls @ 2.5 mls/min IV BID [facility] Stop: 02/12/22 20:59 Last Admin: 01/13/22 21:04 Dose: 2.5 mls/min Documented by: [id number] Lactobacillus Acidophilus (Advanced Probiotic 1250 Mg Capsule) 2 cap PO DAILY [facility] Stop: 02/12/22 10:07 Last Admin: 01/13/22 11:26 Dose: 2 cap Documented by: [id number] Sertraline HCl (Sertraline Hcl 50 Mg Tablet) 25 mg PO QAM [facility] Stop: 02/12/22 10:07 Last Admin: 01/13/22 11:25 Dose: 25 mg Documented by: [id number] Discontinued Medications Acetaminophen (Acetaminophen 1000 Mg/100 Ml Iv) Confirm Administered Dose 1,000 mg IV .STK-MED ONE Stop: 01/13/22 05:17 Last Admin: 01/13/22 05:37 Dose: Not Given Documented by: [id number] Fentanyl Citrate (Fentanyl Citrate 100 Mcg/2 Ml Vial) 50 mcg IV NOW STA Stop: 01/13/22 04:39 Last Admin: 01/13/22 04:58 Dose: 50 mcg Documented by: [id number] Gadobutrol (Gadobutrol 65ml Vial) 6 ml IV ONCE ONE Stop: 01/13/22 17:07 Last Admin: 01/13/22 17:08 Dose: 6 ml Documented by: [id number] Hydrocortisone Sodium Succinate (Hydrocortisone Sod Succinate 100 Mg/2 Ml Vial) 50 mg IV NOW STA Stop: 01/13/22 07:32 Last Admin: 01/13/22 07:52 Dose: 50 mg Documented by: [id number] Sodium Chloride (Nss) 500 mls @ 999 mls/hr IV .Q31M [facility] Stop: 01/13/22 05:00 Last Infusion: 01/13/22 05:39 Dose: 0 mls/hr Documented by: [id number] Admin: 01/13/22 04:59 Dose: 999 mls/hr Documented by: [id number] Acetaminophen (Ofirmev) 1,000 mg in 100 mls @ 400 mls/hr IV NOW STA Stop: 01/13/22 05:45 Last Infusion: 01/13/22 05:37 Dose: 0 mls/hr Documented by: [id number] Admin: 01/13/22 05:00 Dose: 400 mls/hr Documented by: [id number] Sodium Chloride (Nss) 500 mls @ 999 mls/hr IV .Q31M ONE Stop: 01/13/22 07:43 Last Infusion: 01/13/22 07:59 Dose: 0 mls/hr Documented by: [id number] Admin: 01/13/22 07:22 Dose: 999 mls/hr Documented by: [id number] Famotidine (Pepcid 20mg Iv Push) 20 mg in 5 mls @ 2.5 mls/min IV NOW STA Stop: 01/13/22 07:20 Last Admin: 01/13/22 07:52 Dose: 2.5 mls/min Documented by: [id number] Cefepime HCl 2,000 mg/ Syringe 20 mls @ 5 mls/min IV ONE ONE Stop: 01/13/22 10:33 Last Admin: 01/13/22 11:25 Dose: 5 mls/min Documented by: [id number] Ondansetron HCl (Ondansetron Inj 2 Mg/Ml 2 Ml Vial) Confirm Administered Dose 4 mg .ROUTE .STK-MED ONE Stop: 01/13/22 04:04 Last Admin: 04/29/22 04:17 Dose: 4 mg Documented by: [id number] Ondansetron HCl (Ondansetron Inj 2 Mg/Ml 2 Ml Vial) 4 mg IV NOW STA Stop: 01/13/22 04:19 Last Admin: 01/13/22 04:00 Dose: 4 mg Documented by: [id number] Discharge Plan Visit Data Chief Complaint: Nausea ED Provider: Radha Vásquez Discharge Problem: Vomiting, Leukocytosis Patient Disposition: Admitted As Inpatient Discharge Instructions Interventions: ED Discharge Assessment Last Done: 01/13/22 09:50 Discharge Problem: Vomiting Qualifiers: Vomiting type: unspecified Nausea presence: with nausea Qualified Code(s): R11.2 - Nausea with vomiting, unspecified Leukocytosis Qualifiers: Leukocytosis type: unspecified Qualified Code(s): D72.829 - Elevated white blood cell count, unspecified
[2022-01-13] MEDS ORDERED: SODIUM CHLORIDE 0.9% 500 ML IV SCH (04:30)
[2022-01-13] MEDS ORDERED: fentaNYL citrate 100 MCG/2 ML VIAL IV STA (04:38)
[2022-01-13] MEDS ORDERED: ACETAMINOPHEN 1000 MG/100 ML IV IV ONE (05:16)
[2022-01-13 05:27] LABS: Basophils # (auto) 0.02 K/uL (0-0.2); Basophils % (auto) 0.1 %; Eosinophils # (auto) 0.03 K/uL (0-0.5); Eosinophils % (auto) 0.2 %; Hematocrit (blood only) 43.7 % (37-47); Hemoglobin 14.5 g/dL (12.0-16.0); Immature Granulocytes # (auto) 0.21 K/uL (0.00-0.02); Immature Granulocytes % (auto) 1.5 %; Lymphocytes # (auto) 0.48 K/uL (1.2-3.4); Lymphocytes % (auto) 3.5 %; Mean Corpuscular Hemoglobin 36.6 pg (25-34); Mean Corpuscular Hgb Conc 33.2 g/dL (32-36); Mean Corpuscular Volume 110.4 fL (80-100); Mean Platelet Volume 11.1 fL (7.4-10.4); Monocytes # (auto) 0.63 K/uL (0.11-0.59); Monocytes % (auto) 4.6 %; Neutrophils # (auto) 12.37 K/uL (1.4-6.5); Neutrophils % (auto) 90.1 %; Platelet Count 672 K/uL (130-400); RDW Coefficient of Variation 15.1 % (11.5-14.5); RDW Standard Deviation 60.3 fL (36.4-46.3); Red Blood Count 3.96 M/uL (4.2-5.4); White Blood Count 13.74 K/uL (4.8-10.8)
[2022-01-13] MEDS ORDERED: ACETAMINOPHEN 1,000 MG/100 ML VIAL IV STA (05:31)
[2022-01-13 05:38] LABS: Albumin Globulin Ratio 1.6 (0.9-2); BUN Creatinine Ratio 21.2 (10-20); Bilirubin,Total 0.8 mg/dl (0.2-1.0); Calcium 9.4 mg/dl (8.5-10.1); Creatinine Clr Calc Pharmacy 36.6 ml/min; Est GFR (African American) 57.5 ml/min; Est GFR (Non-African American) 49.6 ml/min; Globulin 2.5 gm/dl (2.5-4.0); Potassium 3.4 mmol/L (3.5-5.1); Total Protein 6.5 gm/dl (6.0-8.3)
[2022-01-13 05:40] LABS: RBC Morphology Unremarkable
[2022-01-13] MEDS ORDERED: SODIUM CHLORIDE 0.9% 500 ML IV ONE (07:13)
[2022-01-13] MEDS ORDERED: FAMOTIDINE 20MG IV PUSH 20 MG/5 ML SYR IV STA (07:19)
[2022-01-13] MEDS ORDERED: HYDROCORTISONE SOD SUCCINATE 100 MG/2 ML VIAL IV STA (07:31)
--- NOTE | 2022-01-13 07:31 | History & Physical Report ---
Date of Service January 13, 2022 Assessment & Plan (1) Intractable nausea and vomiting: Plan: I suspect this is a combination of factors including GI side effects from narcotics (I did not realize this but she was receiving IV zofran with each dose of PO norco during the previous hospital stay), gastritis (chronic aspirin use, chronic prednisone use), constipation (no BM in 5+ days), addisonian effects (chronic prednisone since 09/2021), reflux-inducing foods (lasagna), etc. I cannot rule out a new process such as UTI or other infectious issue. I cannot rule out advancement of her sphenoid disease/osteomyelitis but the downtrending CRP and normal procalcitonin are reassuring. Further, her sinus symptoms/headaches are unchanged. I do not think this represents cefepime allergy. No rash/urticaria, normal eosinophils on differential, etc. I do not think she has foodborne illness. Treat symptoms with anti-emetics, IV pepcid, IV fluids, clear liquid diet, stress dose hydrocortisone, check a ua and urine cx, recheck blood cultures. LFTs wnl. I added a lipase and this was normal. COVID testing negative. The leukocytosis may simply be reactive to the prolific vomiting. If any worsening of head symptoms or her GI symptoms consider CT abd/pelvis along with repeat MRI sinuses/skull. (2) Dehydration: Plan: Moderate-severe. Continue hydration with NS with KCL at 125cc/hr. Serial BMPs. Hold inderal for now. (3) Hypokalemia: Plan: replace with KCL in IV fluids checked her mag level - wnl (4) Constipation: Plan: severe no BM in 5+ days x-rays today - my reading - copious stool including distally in the rectum later today would benefit from a dulcolax suppository then, when able to take PO, resume a bowel maintenance program (senna, miralax, etc). (5) Chronic sphenoidal sinusitis: Plan: s/p ENT surgery by Dr Felix Manning on 01/06/22 with biopsy of nasopharyngeal mass/sphenoid sinus region and cultures. 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 Recent admission for this with initiation of IV cefepime for pseudomonas infection as confirmed on intra-op cultures. s/p ID consult - 6 week course of IV cefepime advised. Of note - pathology from her nasopharyngeal biopsies were c/w infectious process rather than malignancy or granulomatous disease (ie ANCA-associated vasculitis, etc). Continue IV cefepime 2gm IV q12h. (6) Osteomyelitis of skull: Plan: see #5 above CRP rechecked this am -- 2.5; was >6 on 01/10/22 procalcitonin wnl in light of presentation will recheck 2 sets of blood cultures to be complete she has no signs/features to suggest meningitis; defer on LP at this time depending on clinical course, however, she may need repeat imaging of the sinuses/skull with MRI previous blood cultures from 01/09 have remained negative Continue IV cefepime 2gm q12h will discuss her care with Dr Felix Manning, ENT, and place formal consult as well (7) Persistent headaches: Plan: Occipital in location - 2nd to #6. During recent hospitalization headaches were controlled with hydrocodone prn. Has had the headaches for several months. (8) Essential thrombocythemia: Plan: Dx several years ago. Is on hydroxyurea daily for such. Also takes aspirin 325mg daily. Ultimately should be followed by heme/onc in the future for this. Peripheral smear during her previous admission did NOT show features of leukemia/lymphoproliferative disease. I am hopeful that the leukocytosis and worsening platelet count are simply reactive to #1 as opposed to a reflection of new infectious etiology or worsening sinus disease. (9) Chronic steroid use: Plan: Prednisone - usage since October 2021. During previous admission received 2.5mg of prednisone daily. In light of severe dehydration she deserves stress-dose steroids. Start hydrocortisone 50mg IV q8h, first dose now. 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, left side, with resulting left tongue impaired movement - improved over the course of this week thought to be secondary to #5, #6 Plan: daughter extensively updated at bedside History of Present Illness Chief Complaint: severe nausea with vomiting Primary Care Provider: Jamal Garcia MD Very pleasant 81yo female with history of essential thrombocytosis, asthma, TIA, and recently diagnosed pseudomonas sphenoid sinusitis with osteomyelitis of the clivus/skull base - recently admitted from 01/09 to 01/12 for IV antibiotic therapy for the sinusitis/osteomyelitis and d/c home on IV cefepime x 6 weeks - who presents to the ER after waking up about 0200 with severe nausea followed by numerous episodes of nonbilious, nonbloody emesis. Patient states she discharged home about 1800 last evening and was feeling well. She & her daughter shared a lasagna meal for dinner last evening. She took her first dose of IV cefepime last night without difficulty. Prior to going to bed she had a minimal amount of nausea. She did take a hydrocodone pain pill for mild posterior occipital headache (had been taking such during the previous hospitalization without incident) at bedtime. Then, she awoke at 2am with the nausea/vomiting. In the midst of the vomiting she had hot/cold chills. No fever. Reports some very mild dizziness even at rest. No vertigo. Her headache overnight and this am are unchanged from her prior headaches. She received IV tylenol and IV fentanyl in the ER with resolution of the headache. Denies any ear pain (although L ear is full due to known OME), chest pain, cough, dyspnea, rash, diarrhea, dysuria, myalgias, musculoskeletal pains/arthralgias, focal motor weakness. Her throat is sore s/p vomiting. She does c/o very mild stomach discomfort in the lower abdomen. She has not had a bowel movement in many days and is not passing flatus this am. Following anti-emetics, pain meds, IV fluids, etc in the ER she feels a little better and the vomiting has stopped. Allergies Allergy/AdvReac Type Severity Reaction Status Date / Time levofloxacin [From Levaquin] AdvReac Intermediate tongue Verified 01/09/22 14:37 swelling codeine AdvReac Mild NAUSEA Verified 01/09/22 14:37 morphine AdvReac Mild GI SYMPTOMS Verified 01/09/22 14:37 Sulfa (Sulfonamide AdvReac Mild NAUSEA Verified 01/09/22 14:37 Antibiotics) Home Medications Medication Instructions Recorded Confirmed Type aspirin 325 mg tablet,delayed 325 mg PO QAM tab 06/11/19 01/13/22 History release cyanocobalamin (vitamin B-12) 1,000 mcg PO QAM #90 tab 06/11/19 01/13/22 History 1,000 mcg tablet albuterol sulfate 90 mcg/actuation 1 - 2 puff INHALATION Q6H PRN #18 08/31/20 01/13/22 Rx aerosol inhaler gm propranolol 20 mg tablet 20 mg PO BID #180 tab 03/04/21 01/13/22 Rx cholecalciferol (vitamin D3) 25 1,000 unit PO QAM tab 10/14/21 01/13/22 History mcg (1,000 unit) tablet hydroxyurea 500 mg capsule 500 mg PO QAM 01/05/22 01/13/22 History sertraline 25 mg tablet 25 mg PO QAM 01/05/22 01/13/22 History prednisone 1 mg tablet 1 mg PO UD 01/09/22 01/13/22 History prednisone 1 mg tablet 2.5 mg PO UD 01/09/22 01/13/22 History L.acidop,casei,lactis,rham-B.lact,mimi 2 cap PO DAILY #60 cap 01/12/22 01/13/22 Rx 625 mg (10 billion cell) capsule (Advanced Probiotic) cefepime 2 gram solution for 2 g IV Q12H #80 vial 01/12/22 01/13/22 Rx injection hydrocodone 5 mg-acetaminophen 325 1 tab PO Q6H PRN #30 tab 01/12/22 01/13/22 Rx mg tablet Past Med/Surg History Medical History Asthma Asthmatic bronchitis Bacterial infection due to Pseudomonas sphenoid sinusitis - 12/2021 Essential thrombocythemia Stable on HU 500mg QD. 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 Reactive depression Sinusitis sphenoid, 12/2021 TIA (transient ischemic attack) Several years ago Surgical History H/O reduction mammoplasty History of tonsillectomy and adenoidectomy Hx of abdominoplasty S/P left hemicolectomy Secondary mass (benign) Family History Father Cancer Emphysema lung Prostate cancer Mother Cancer Colorectal cancer Thyroid cancer Colon cancer Sister Breast cancer Cancer Colon cancer Uncle Lung cancer Uncle Lung cancer Denies family history of Ovarian cancer Heart disease Myocardial infarction Hypertension Stroke Asthma Social History Smoking Status: Former smoker Tobacco Type: Cigarettes Age Quit Using Tobacco: 35; Second Hand Exposure: No; Hx Alcohol Use: No Hx Substance Use: No Preferred Language: Urdu Communication Ability: Effective Visual Impairment: Limited Hearing Ability: Normal [employer] [place] Required: No Beliefs That Will Affect Care: None marital status: / Current Living Situation: Alone Current Living Situation Comment: Home 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 How many Children do You have: 3 Other Information That Helps Us Care for You: No Feels Safe at Home: Yes Safety Concerns: Feels Safe At This Time Childhood Exposure to Second-Hand Smoke: Yes caffeine: Yes (drinks coffee daily ) Dental Care, Regularly: Yes Physical Activity Frequency: Daily Physical Activity Frequency Comment: tries to walk daily Seatbelt Use: always Sunscreen Use: Yes Assistive Devices: None Review of Systems Review of Systems: gen - no fevers; hot/cold chills during the vomiting but now resolved; weak, fatigue eyes - no vision loss HENT - ear fullness on left due to otitis media with effusion; sore throat s/p vomiting (no sore throat prior); mild mucous discharge from nose; no dysphagia; no change in previously known tongue movement issues neck - supple, not stiff CV - no chest pain, no orthopnea pulm - no cough, no dyspnea GI - no abdominal pain but has mild stomach discomfort/bloating especially lower abdomen; nausea, emesis; no hematemesis; +constipation - no dysuria, decreased urine output overnight musculo - no myalgias or arthralgias neuro - no focal motor weakness; chronic headaches x 2-3 months; no change in severity or character of headache; no vertigo; no dysarthria skin - no rash or hives endo - no diabetes psych - anxious about health status Physical Exam Physical Exam: gen - looks dehydrated, nontoxic, awake, alert, follows commands, no confusion/oriented x 3; looks tired eyes - PERRL; EOMI; no nystagmus; anicteric HENT - NC, AT; right TM clear; left TM with clear fluid; nose clear; mouth - MM very dry; lips dry; tongue - mild weakness of left tongue muscles but much improved from several days ago; no oral cavity lesions neck - supple, no rigidity or meningismus; nontender to palpation over cervical spine or occipital portion of skull heart - tachy, s1 s2, no murmur lungs - CTA b/l abd - soft, mildly distended, no peritoneal signs; BS+; no HSM; NT ext - pulses 2+ b/l feet; no edema; calves symmetric neuro - CN 3-12 intact except CN 12 on left (known issue); no facial droop; speech fluent/clear; strength 5/5 x 4 exts; DTRs 2+ b/l lymph - no cervical lymph nodes b/l skin - no rash or hives psych - oriented x 3 Results & Data Results & Data ([facility]) Vital Signs (Past 12 Hours) Vital Signs Temp Pulse Pulse Resp BP BP Pulse Ox 01/13/22 06:00 96 H 18 139/100 96 01/13/22 04:20 102 H 18 96 01/13/22 04:16 36.9 C 109 H 18 139/100 96 01/13/22 03:55 36.9 C 111 H 18 139/100 99 Laboratory Results Laboratory Results - last 24 hr 01/13/22 01/13/22 01/13/22 04:55 04:55 07:20 WBC 13.74 H RBC 3.96 L Hgb 14.5 Hct 43.7 MCV 110.4 H MCH 36.6 H MCHC 33.2 RDW Std Deviation 60.3 H RDW Coeff of Dwayne 15.1 H Plt Count 672 H D MPV 11.1 H Immature Gran % (Auto) 1.5 Neut % (Auto) 90.1 Lymph % (Auto) 3.5 [place] % (Auto) 4.6 Eos % (Auto) 0.2 Baso % (Auto) 0.1 Neut # (Auto) 12.37 H Lymph # (Auto) 0.48 L [place] # (Auto) 0.63 H Eos # (Auto) 0.03 Baso # (Auto) 0.02 Immature Gran # (Auto) 0.21 H RBC Morphology Unremarkable Sodium 137 Potassium 3.4 L Chloride 101 Carbon Dioxide 23 Anion Gap 13 H BUN 22 Creatinine 1.04 Est Cr Clr Drug Dosing 36.6 Est GFR ( Amer) 57.5 Est GFR (Non-Af Amer) 49.6 BUN/Creatinine Ratio 21.2 H Glucose 155 H Calcium 9.4 Magnesium Total Bilirubin 0.8 AST 22 ALT 19 Alkaline Phosphatase 104 C-Reactive Protein Total Protein 6.5 Albumin 4.0 Globulin 2.5 Albumin/Globulin Ratio 1.6 Lipase Procalcitonin SARS-CoV-2, RNA, NAAT NEGATIVE 01/13/22 01/13/22 07:54 07:54 WBC RBC Hgb Hct MCV MCH MCHC RDW Std Deviation RDW Coeff of Dwayne Plt Count MPV Immature Gran % (Auto) Neut % (Auto) Lymph % (Auto) [place] % (Auto) Eos % (Auto) Baso % (Auto) Neut # (Auto) Lymph # (Auto) [place] # (Auto) Eos # (Auto) Baso # (Auto) Immature Gran # (Auto) RBC Morphology Sodium Potassium Chloride Carbon Dioxide Anion Gap BUN Creatinine Est Cr Clr Drug Dosing Est GFR ( Amer) Est GFR (Non-Af Amer) BUN/Creatinine Ratio Glucose Calcium Magnesium 2.0 Total Bilirubin AST ALT Alkaline Phosphatase C-Reactive Protein 2.56 H Total Protein Albumin Globulin Albumin/Globulin Ratio Lipase 23 Procalcitonin 0.32 SARS-CoV-2, RNA, NAAT Diagnostic Findings Chest/Abdomen X-ray 01/13/22 07:18 PA CHEST RADIOGRAPH AND UPRIGHT AND SUPINE AP RADIOGRAPHS OF THE ABDOMEN CLINICAL HISTORY: severe, recurrent vomiting COMPARISON STUDY: Chest radiograph January 03, 2022. FINDINGS: Lung volumes are normal. No pneumothorax or pleural effusion is noted. Minimal left basilar opacity favors atelectasis or scarring. No evidence for pulmonary edema or pneumonia. Cardiac size is normal. There is no free air. Bowel gas pattern is normal. Postoperative findings within the right lower quadrant are noted. Pelvic calcifications favor phleboliths. The amount of stool is within normal limits. IMPRESSION: 1. No free air or evidence of bowel obstruction. 2. No acute cardiopulmonary findings. ACT 112: Negative or not required by law. Electronically signed by: Lance Canales M.D. 01/13/2022 8:04 AM EKG my reading - sinus tach, LVH by voltage criteria, PVCs, no ST changes Code Status & VTE Plan Code Status DNR/DNI - confirmed in presence of her daughter PG Care Time/CCT Total # of Minutes Spent Total Time Spent with Patient: Total time spent is greater than 50% in coordination of care (as documented) at patient's floor/unit and/or counseling patient: Coding Level of Care Code INT OBSERVATION CARE 70M LVL 3 Diagnoses Intractable nausea and vomiting R11.2 Dehydration E86.0 Hypokalemia E87.6 Constipation K59.00 Chronic sphenoidal sinusitis J32.3 Osteomyelitis of skull M86.9 Persistent headaches R51.9 Essential thrombocythemia D47.3 Chronic steroid use DVT prophylaxis Z29.9 Cranial nerve impairment G52.9
[2022-01-13] MEDS: NSS + 20MEQ KCL 20 MEQ/1,000 ML BAG IV SCH ×2 (07:52→18:29)
--- NOTE | 2022-01-13 08:06 | XRay Report ---
PA CHEST RADIOGRAPH AND UPRIGHT AND SUPINE AP RADIOGRAPHS OF THE ABDOMEN CLINICAL HISTORY: severe, recurrent vomiting COMPARISON STUDY: Chest radiograph January 03, 2022. FINDINGS: Lung volumes are normal. No pneumothorax or pleural effusion is noted. Minimal left basila r opacity favors atelectasis or scarring. No evidence for pulmonary edema or pneumonia. Cardiac size is normal. There is no free air. Bowel gas pattern is normal. Postoperative findings within the right lower quadrant are noted. Pelvic calcifications favor phleboliths. The amount of stool is within nor mal limits. IMPRESSION: 1. No free air or evidence of bowel obstruction. 2. No acute cardiopulmonary findings. ACT 112: Negative or not required by law. Electronically signed by: Lance Canales M.D. 01/13/2022 8:04 AM
[2022-01-13 08:31] LABS: C Reactive Protein 2.56 mg/dl (0-0.5)
[2022-01-13] MEDS ORDERED: ONDANSETRON INJ 2 MG/ML 2 ML VIAL IV PRN (10:08)
[2022-01-13] MEDS ORDERED: ALBUTEROL HFA 8 GM INHALER INH PRN (10:08)
[2022-01-13] MEDS ORDERED: FAMOTIDINE 20 MG in SYRINGE 3 ML IV SCH (10:08)
[2022-01-13] MEDS ORDERED: CEFEPIME 2,000 MG in SYRINGE 0 ML IV ONE (10:30)
[2022-01-13] MEDS: HYDROXYUREA 500 MG CAP PO SCH (11:25)
[2022-01-13] MEDS: SERTRALINE HCL 50 MG TABLET PO SCH (11:25)
[2022-01-13] MEDS: ADVANCED PROBIOTIC 1250 MG CAPSULE PO SCH (11:26)
[2022-01-13] MEDS: ASPIRIN 325 MG ECTAB PO SCH (11:26)
--- NOTE | 2022-01-13 12:11 | ENT Consultation ---
Date of Consultation January 13, 2022 Assessment & Plan (1) Osteomyelitis of skull: (2) Chronic steroid use: 81yF with L>R nasopharyngeal infiltrative process s/p nasal endoscopy and nasopharyngeal biopsy 01/06/22. Pathology results consistent with inflammatory process, no signs of malignancy or vasculitis. Culture +pseudomonas. Presumed osteomyelitis of skull base with mild erosion of clivus, likely source of L CN XII weakness which is improving. Now on cefepime, readmitted for n/v. Appears 2/2 constipation and ?adrenal insufficiency. Labs improving on IV abx except WBC which may be reactive to n/v. Procalcitonin negative and CRP trending down. No clinical signs of meningitis. -Continue IV abx per ID -Advance PO as tolerated -Bowel regimen -Updated MRI to evaluation for any progression, if noted would recommend transfer to tertiary care -Discussed again with patient that infiltrative process does extend deep into the nasopharynx, it is possible additional pathology was not sampled on biopsy. If not improving, would recommend transfer to tertiary care center for evaluation by skull base surgeon -Care per primary team History of Present Illness Reason for Consultation: vomiting, nasopharyngeal infiltrate Attending Physician: Gerry Cantrell History of Present Illness 81yF with recent history of headaches and sphenoid sinusitis now with infiltrative process of nasopharynx and L>R skull base with clival erosion on imaging (CT sinus and MRI skull base). Underwent nasal endoscopy with nasopharyngeal biopsy 01/06/22, pathology showed heavily inflamed granulation tissue, no malignancy on permanent or flow cytometry. Culture +pseudomonas. 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 She does have a history of radium tx to adenoid tissue as a child. She has developed a L middle ear effusion. Recently hospitalized for IV abx, on cefepime. Discharged yesterday and developed n/v overnight. Readmitted for IVF. Denies diplopia, vision loss, facial numbness. Dysarthria improving. Headache resolved currently. No nuchal rigidity or fever. Allergies Allergy/AdvReac Type Severity Reaction Status Date / Time levofloxacin [From Levaquin] AdvReac Intermediate tongue Verified 01/09/22 14:37 swelling codeine AdvReac Mild NAUSEA Verified 01/09/22 14:37 morphine AdvReac Mild GI SYMPTOMS Verified 01/09/22 14:37 Sulfa (Sulfonamide AdvReac Mild NAUSEA Verified 01/09/22 14:37 Antibiotics) Home Medications Medication Instructions Recorded Confirmed Type aspirin 325 mg tablet,delayed 325 mg PO QAM tab 06/11/19 01/13/22 History release cyanocobalamin (vitamin B-12) 1,000 mcg PO QAM #90 tab 06/11/19 01/13/22 History 1,000 mcg tablet albuterol sulfate 90 mcg/actuation 1 - 2 puff INHALATION Q6H PRN #18 08/31/20 01/13/22 Rx aerosol inhaler gm propranolol 20 mg tablet 20 mg PO BID #180 tab 03/04/21 01/13/22 Rx cholecalciferol (vitamin D3) 25 1,000 unit PO QAM tab 10/14/21 01/13/22 History mcg (1,000 unit) tablet hydroxyurea 500 mg capsule 500 mg PO QAM 01/05/22 01/13/22 History sertraline 25 mg tablet 25 mg PO QAM 01/05/22 01/13/22 History prednisone 1 mg tablet 1 mg PO UD 01/09/22 01/13/22 History prednisone 1 mg tablet 2.5 mg PO UD 01/09/22 01/13/22 History L.acidop,casei,lactis,rham-B.lact,mimi 2 cap PO DAILY #60 cap 01/12/22 01/13/22 Rx 625 mg (10 billion cell) capsule (Advanced Probiotic) cefepime 2 gram solution for 2 g IV Q12H #80 vial 01/12/22 01/13/22 Rx injection hydrocodone 5 mg-acetaminophen 325 1 tab PO Q6H PRN #30 tab 01/12/22 01/13/22 Rx mg tablet Patient History Medical History Asthma Asthmatic bronchitis Bacterial infection due to Pseudomonas sphenoid sinusitis - 12/2021 Essential thrombocythemia Stable on HU 500mg QD. 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 Reactive depression Sinusitis sphenoid, 12/2021 TIA (transient ischemic attack) Several years ago Surgical History H/O reduction mammoplasty History of tonsillectomy and adenoidectomy Hx of abdominoplasty S/P left hemicolectomy Secondary mass (benign) Family History Father Cancer Emphysema lung Prostate cancer Mother Cancer Colorectal cancer Thyroid cancer Colon cancer Sister Breast cancer Cancer Colon cancer Uncle Lung cancer Uncle Lung cancer Denies family history of Ovarian cancer Heart disease Myocardial infarction Hypertension Stroke Asthma Social History Smoking Status: Former smoker Tobacco Type: Cigarettes Age Quit Using Tobacco: 35; Second Hand Exposure: No; Hx Alcohol Use: No Hx Substance Use: No Preferred Language: [place]se Communication Ability: Effective Visual Impairment: Limited Hearing Ability: Normal [employer] Required: No Beliefs That Will Affect Care: None marital status: / Current Living Situation: Alone Current Living Situation Comment: Home 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 How many Children do You have: 3 Other Information That Helps Us Care for You: No Feels Safe at Home: Yes Safety Concerns: Feels Safe At This Time Childhood Exposure to Second-Hand Smoke: Yes caffeine: Yes (drinks coffee daily ) Dental Care, Regularly: Yes Physical Activity Frequency: Daily Physical Activity Frequency Comment: tries to walk daily Seatbelt Use: always Sunscreen Use: Yes Assistive Devices: None Review of Systems Review of Systems: A 10-point ROS negative except as noted above and constipation Physical Exam Physical Exam: General: No acute distress, nonlabored respirations Face: normal facial motion Eyes: Extraocular motion is intact. Normal sclera and conjunctiva. PERRL Nose: septal deviation right, bilateral ITH. Oral cavity: clear, mild asymmetry of oral tongue with fullness on left, no mucosal or submucosal lesions noted Oropharynx: clear, tonsils surgically absent. No fullness/erythema/mass/lesion of posterior pharyngeal wall or tonsillar fossae Neck: soft, no masses or lymphadenopathy. Supple, no nuchal rigidity CN II-XII intact except for very subtle L CN XII weakness/deviation with protrusion, improving Results & Data ([facility]) Vital Signs (Past 12 Hours) Vital Signs Temp Pulse Pulse Resp BP BP Pulse Ox 01/13/22 10:09 36.6 C 99 H 18 113/62 97 01/13/22 09:50 97 H 17 121/66 98 01/13/22 08:33 102 H 18 125/70 96 01/13/22 07:46 124 H 18 134/92 96 01/13/22 06:00 96 H 18 139/100 96 01/13/22 04:20 102 H 18 96 01/13/22 04:16 36.9 C 109 H 18 139/100 96 01/13/22 03:55 36.9 C 111 H 18 139/100 99 PG Care Time/CCT Total # of Minutes Spent Total Time Spent with Patient: Total time spent is greater than 50% in coordination of care (as documented) at patient's floor/unit and/or counseling patient: Coding Level of Care Code 87691 Initial Inpt Care Lvl 2 Diagnoses Osteomyelitis of skull M86.9 Chronic steroid use
--- NOTE | 2022-01-13 13:41 | Electrocardiogram Report ---
Test Reason : Blood Pressure : / mmHG Vent. Rate : 105 BPM Atrial Rate : 105 BPM P-R Int : 178 ms QRS Dur : 084 ms QT Int : 338 ms P-R-T Axes : 015 -37 098 degrees QTc Int : 446 ms Sinus tachycardia with frequent Premature ventricular complexes Left axis deviation Left ventricular hypertrophy with repolarization abnormality Abnormal ECG When compared with ECG of 03-JAN-2022 19:19, T wave inversion no longer evident in Inferior leads Nonspecific T wave abnormality, worse in Lateral leads Confirmed by Darrian Alatorre ([id number]) on 01/13/2022 1:40:37 PM Referred By: REFERRED SELF Confirmed By:Darrian Alatorre
[2022-01-13] MEDS: ACETAMINOPHEN 325 MG TAB PO PRN (15:03)
[2022-01-13] MEDS: HYDROCORTISONE SOD 50 MG in SYRINGE 0 ML IV SCH ×2 (15:03→21:04)
[2022-01-13] MEDS ORDERED: GADOBUTROL 65ML VIAL IV ONE (17:06)
[2022-01-13 17:23] LABS: Appearance Urine Clear (Clear); Bacteria Urine Automated Negative (Negative); Bilirubin Urine Negative (Negative); Blood Urine Negative (Negative); Color Urine Dark Yellow; Glucose Urine UA Negative (Negative); Ketones Urine Trace (Negative); Leukocyte Esterase Urine Negative (Negative); Nitrite Urine Negative (Negative); Protein Urine 1+ (Negative); Urobilinogen Urine Negative (Negative); WBC Urine Automated 0 /hpf (0-5)
[2022-01-13] MEDS: FAMOTIDINE 20 MG in SYRINGE 3 ML IV SCH (21:04)
[2022-01-13] MEDS: CEFEPIME 2,000 MG in SYRINGE 0 ML IV SCH (21:04)
--- NOTE | 2022-01-13 22:08 | Magnetic Resonance Report ---
MRI OF THE BRAIN COMBO TRIGEMINAL NERVE PROTOCOL CLINICAL HISTORY: Osteomyelitis of the clivus. COMPARISON STUDY: MRI of the brain dated 01/06/2022. CT scans of the brain and paranasal sinuses dated 01/03/2022. MRI of the brain dated 10/20/2021. TECHNIQUE: MRI of the brain was performed utilizing various T1 and T2-weighted sequences in the axial , sagittal, and coronal planes. Contrast-enhanced sequences were acquired following the administratio n of 6 cc of Gadavist. Additional high-resolution imaging was performed through the skull base both p re and post contrast to assess the trigeminal nerves. FINDINGS: Brain parenchyma: There is age-related involutional change noting [id number] subcortical and pe riventricular microangiopathic disease. There is no hemorrhage or mass effect. There is no restricted diffusion typical for acute ischemia. No intracranial enhancing mass lesion is identified on the pos tcontrast images. Massey-white matter differentiation is preserved. No extra-axial fluid collection is seen. The cerebellar tonsils are normal in configuration. Ventricles, sulci, and cisterns: Prominent secondary to involutional change. Trigeminal nerves: Normal in symmetric with no abnormal postcontrast enhancement identified. Pituitary and sella: Unremarkable. Intracranial vasculature: Normal flow voids are maintained at the skull base. Orbits: The bony orbits are grossly intact. Orbital contents are normal in appearance noting bilatera l ocular lens implants. Soft tissues: Abnormal enhancing soft tissue is again suggested within the posterior nasopharynx, lef t greater than right. There is also abnormal soft tissue thickening and enhancement within the left p osterior parapharyngeal soft tissues. This surrounding the left internal carotid artery. There is het erogeneity and enhancement within the adjacent clivus. Fluid is again seen within the left middle ear . There is also fluid within the left eustachian tube. Sinuses and mastoids: There is trace mucosal thickening within the sphenoid sinuses. There is a 2 cm retention cyst in the right maxillary antrum. The remaining paranasal sinuses are clear. There is a l arge left mastoid effusion. The right mastoid air cells are clear. Calvarium: See above for discussion of the clivus. The remainder of the calvarium is normal.. Cervical cord: Partially visualized cervical spinal cord is normal in morphology and signal intensity . IMPRESSION: 1. No significant change from 01/06/2022. There is no hemorrhage, enhancing intracranial mass, or evid ence of acute ischemia. 2. Again seen is abnormal enhancing soft tissue within the posterior nasopharynx, left greater than r ight, with involvement of the left parapharyngeal fat and infiltration of the clivus. This has been s ampled surgically and reportedly represents infection/osteomyelitis. 3. There is no evidence of intracranial extension at the skull base. 4. Again seen is fluid within the left middle ear and eustachian tube, as well as a large left mastoi d effusion. ACT 112: Negative or not required by law. Electronically signed by: Dewayne Main M.D. 01/13/2022 10:05 PM
[2022-01-14] MEDS: ACETAMINOPHEN 325 MG TAB PO PRN (05:46)
[2022-01-14] MEDS: NSS + 20MEQ KCL 20 MEQ/1,000 ML BAG IV SCH ×2 (05:46→13:36)
[2022-01-14 07:15] LABS: Hematocrit (blood only) 31.5 % (37-47); Hemoglobin 10.2 g/dL (12.0-16.0); Mean Corpuscular Hemoglobin 35.3 pg (25-34); Mean Corpuscular Hgb Conc 32.4 g/dL (32-36); Mean Platelet Volume 10.7 fL (7.4-10.4); Platelet Count 354 K/uL (130-400); RDW Coefficient of Variation 15.7 % (11.5-14.5); RDW Standard Deviation 61.2 fL (36.4-46.3); Red Blood Count 2.89 M/uL (4.2-5.4); White Blood Count 7.37 K/uL (4.8-10.8)
[2022-01-14 07:33] LABS: Basophils # (auto) 0.01 K/uL (0-0.2); Basophils % (auto) 0.1 %; Eosinophils # (auto) 0.01 K/uL (0-0.5); Eosinophils % (auto) 0.1 %; Immature Granulocytes # (auto) 0.05 K/uL (0.00-0.02); Immature Granulocytes % (auto) 0.7 %; Lymphocytes # (auto) 0.58 K/uL (1.2-3.4); Lymphocytes % (auto) 7.9 %; Microcytosis Present; Monocytes % (auto) 8.1 %; Neutrophils # (auto) 6.12 K/uL (1.4-6.5); Neutrophils % (auto) 83.1 %
[2022-01-14 08:06] LABS: BUN Creatinine Ratio 24.3 (10-20); Creatinine Clr Calc Pharmacy 53.8 ml/min; Est GFR (African American) 92.9 ml/min; Est GFR (Non-African American) 80.1 ml/min; Potassium 3.9 mmol/L (3.5-5.1)
[2022-01-14] MEDS ORDERED: bisacodyL 10 MG SUPP PR STA (09:00)
[2022-01-14] MEDS: SERTRALINE HCL 50 MG TABLET PO SCH (09:11)
[2022-01-14] MEDS: HYDROXYUREA 500 MG CAP PO SCH (09:11)
[2022-01-14] MEDS: ASPIRIN 325 MG ECTAB PO SCH (09:11)
[2022-01-14] MEDS: CEFEPIME 2,000 MG in SYRINGE 0 ML IV SCH ×2 (09:12→21:39)
[2022-01-14] MEDS: HYDROCORTISONE SOD 50 MG in SYRINGE 0 ML IV SCH ×2 (09:12→13:35)
[2022-01-14] MEDS: FAMOTIDINE 20 MG in SYRINGE 3 ML IV SCH ×2 (09:12→21:39)
[2022-01-14] MEDS: ADVANCED PROBIOTIC 1250 MG CAPSULE PO SCH (10:40)
--- NOTE | 2022-01-14 19:59 | Hospitalist Progress Note ---
Date of Service January 14, 2022 Assessment & Plan (1) Intractable nausea and vomiting: Plan: Resolved. Suspect this was a combination of factors including GI side effects from narcotics (I did not realize this but she was receiving IV zofran with each dose of PO norco during the previous hospital stay - she did not have zofran available at home), gastritis (chronic aspirin use, chronic prednisone use), constipation (no BM in 5+ days at time of admission), addisonian effects (chronic prednisone since 09/2021), reflux-inducing foods (lasagna), etc. Cont H2 stas IV - change to PO PPI at discharge. Advance diet. Treat constipation aggressively (dulcolax suppos this am, then senna daily with miralax BID). Give zofran to patient at discharge. Wean stress dose steroids. Most importantly - no evidence of any new infectious process. NO EVIDENCE on MRI brain any advancement in her skull bone osteo or sinus disease. NO EVIDENCE on MRI of any new process. (2) Dehydration: Plan: Moderate-severe. Resolved. Advance diet. Can stop IV fluids later today. (3) Hypokalemia: Plan: replaced resolved bmp am (4) Constipation: Plan: severe no BM in 5+ days at time of this admission improved s/p dulcolax suppository this am start senna 2 tabs daily + miralax BID for maintenance (5) Chronic sphenoidal sinusitis: Plan: s/p ENT surgery by Dr Felix Manning on 01/06/22 with biopsy of nasopharyngeal mass/sphenoid sinus region and cultures. 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 Recent admission for this with initiation of IV cefepime for pseudomonas infection as confirmed on intra-op cultures. s/p ID consult - 6 week course of IV cefepime advised. Of note - pathology from her nasopharyngeal biopsies were c/w infectious process rather than malignancy or granulomatous disease (ie ANCA-associated vasculitis, etc). Continue IV cefepime 2gm IV q12h. Continue probiotics. 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 During recent hospitalization headaches were controlled with hydrocodone prn. Has had the headaches for several months. Can't rule out component of migraines - had migraines since she was very young, then migraines improved following menopause. Resume inderal albeit at lower dose of 10mg BID. (8) Essential thrombocythemia: Plan: Dx several years ago. Is on hydroxyurea daily for such. Also takes aspirin 325mg daily. Ultimately should be followed by heme/onc in the future for this. Peripheral smear during her previous admission did NOT show features of leukemia/lymphoproliferative disease. leukocytosis and worsening platelet count at time of admission yesterday were likely reactive; both wbcs and platelets today have trended down with supportive care. (9) Chronic steroid use: Plan: Prednisone - usage since October 2021. During previous admission received 2.5mg of prednisone daily. In light of severe dehydration she has received stress-dose steroids in the form of hydrocortisone 50mg IV q8h. Wean to 25mg TID now, then back to PO prednisone tomorrow, then wean over a few days back to prednisone 2.5mg daily. Patient hoping to wean off steroids completely in the next few weeks; defer that to Dr Manning and her PCP. Again will add PPI for GI prophy in light of physical stress, aspirin use, pre dnisone use, and possible gastritis. (10) DVT prophylaxis: Plan: defer on chemical means for now -- H/H did drop overnight; could be dilutional. recheck cbc am for stability. 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, left side, with resulting left tongue impaired movement - improved over the course of this week thought to be secondary to #5, #6 Plan: daughter extensively updated by phone this afternoon Admission and Anticipated Discharge Date Admission Date: January 13, 2022 Subjective tele stable/normal overnight she feels much better had only mild occipital headache earlier today relieved with tylenol alone no nausea no vomiting no abd pain DID have BM with use of dulcolax suppos tolerating diet no dizziness ambulating w/o difficulty she expresses concerns about "lump" over us-guided IV site - left arm Review of Systems Review of Systems: gen - no fevers cv - no cp, no orthopnea pulm - no dyspnea GI - no pain - voiding fine Physical Exam Physical Exam: gen - looks very good today HENT - mouth/lips with MMM; left side of tongue muscle function improving modestly day to day neck - no JVD heart - RRR, s1 s2, no murmur lungs - CTA b/l abd - soft NT ND BS+ ext - no edema, pulses 2+ b/l psych - a/o x 3 Results & Data Results & Data ([facility]) Vital Signs (Past 12 Hours) Vital Signs Temp Pulse Pulse Resp BP Pulse Ox 01/14/22 15:32 36.5 C 78 19 145/76 H 95 01/14/22 11:44 36.8 C 87 18 134/66 97 01/14/22 10:24 60 01/14/22 07:59 36.5 C 85 18 125/63 98 Laboratory Results Laboratory Results - last 24 hr 01/14/22 01/14/22 06:51 06:51 WBC 7.37 RBC 2.89 L Hgb 10.2 L D Hct 31.5 L MCV 109.0 H MCH 35.3 H MCHC 32.4 RDW Std Deviation 61.2 H RDW Coeff of Dwayne 15.7 H Plt Count 354 MPV 10.7 H Immature Gran % (Auto) 0.7 Neut % (Auto) 83.1 Lymph % (Auto) 7.9 [place] % (Auto) 8.1 Eos % (Auto) 0.1 Baso % (Auto) 0.1 Neut # (Auto) 6.12 Lymph # (Auto) 0.58 L [place] # (Auto) 0.60 H Eos # (Auto) 0.01 Baso # (Auto) 0.01 Immature Gran # (Auto) 0.05 H Microcytosis Present Sodium 141 Potassium 3.9 Chloride 113 H Carbon Dioxide 22 Anion Gap 6 BUN 17 Creatinine 0.70 D Est Cr Clr Drug Dosing 53.8 Est GFR ( Amer) 92.9 Est GFR (Non-Af Amer) 80.1 BUN/Creatinine Ratio 24.3 H Glucose 102 H Calcium 8.0 L Diagnostic Findings blood cx's negative to date urine cx negative Chest/Abdomen X-ray 01/13/22 07:18 PA CHEST RADIOGRAPH AND UPRIGHT AND SUPINE AP RADIOGRAPHS OF THE ABDOMEN CLINICAL HISTORY: severe, recurrent vomiting COMPARISON STUDY: Chest radiograph January 03, 2022. FINDINGS: Lung volumes are normal. No pneumothorax or pleural effusion is noted. Minimal left basilar opacity favors atelectasis or scarring. No evidence for pulmonary edema or pneumonia. Cardiac size is normal. There is no free air. Bowel gas pattern is normal. Postoperative findings within the right lower quad rant are noted. Pelvic calcifications favor phleboliths. The amount of stool is within normal limits. IMPRESSION: 1. No free air or evidence of bowel obstruction. 2. No acute cardiopulmonary findings. ACT 112: Negative or not required by law. Electronically signed by: Lance Canales M.D. 01/13/2022 8:04 AM Brain MRI 01/13/22 12:13 MRI OF THE BRAIN COMBO TRIGEMINAL NERVE PROTOCOL CLINICAL HISTORY: Osteomyelitis of the clivus. COMPARISON STUDY: MRI of the brain dated 01/06/2022. CT scans of the brain and paranasal sinuses dated 01/03/2022. MRI of the brain dated 10/20/2021. TECHNIQUE: MRI of the brain was performed utilizing various T1 and T2-weighted sequences in the axial, sagittal, and coronal planes. Contrast-enhanced sequences were acquired following the administration of 6 cc of Gadavist. Additional high-resolution imaging was performed through the skull base both pre and post contrast to assess the trigeminal nerves. FINDINGS: Brain parenchyma: There is age-related involutional change noting [id number] subcortical and periventricular microangiopathic disease. There is no hemorrhage or mass effect. There is no restricted diffusion typical for acute ischemia. No intracranial enhancing mass lesion is identified on the postcontrast images. Massey-white matter differentiation is preserved. No extra- axial fluid collection is seen. The cerebellar tonsils are normal in configuration. Ventricles, sulci, and cisterns: Prominent secondary to involutional change. Trigeminal nerves: Normal in symmetric with no abnormal postcontrast enhancement identified. Pituitary and sella: Unremarkable. Intracranial vasculature: Normal flow voids are maintained at the skull base. Orbits: The bony orbits are grossly intact. Orbital contents are normal in appearance noting bilateral ocular lens implants. Soft tissues: Abnormal enhancing soft tissue is again suggested within the posterior nasopharynx, left greater than right. There is also abnormal soft tissue thickening and enhancement within the left posterior parapharyngeal soft tissues. This surrounding the left internal carotid artery. There is heterogenei ty and enhancement within the adjacent clivus. Fluid is again seen within the left middle ear. There is also fluid within the left eustachian tube. Sinuses and mastoids: There is trace mucosal thickening within the sphenoid sinuses. There is a 2 cm retention cyst in the right maxillary antrum. The remaining paranasal sinuses are clear. There is a large left mastoid effusion. The right mastoid air cells are clear. Calvarium: See above for discussion of the clivus. The remainder of the calvarium is normal.. Cervical cord: Partially visualized cervical spinal cord is normal in morphology and signal intensity. IMPRESSION: 1. No significant change from 01/06/2022. There is no hemorrhage, enhancing intracranial mass, or evidence of acute ischemia. 2. Again seen is abnormal enhancing soft tissue within the posterior nasopharynx, left greater than right, with involvement of the left parapharyngeal fat and infiltration of the clivus. This has been sampled surgically and reportedly represents infection/osteomyelitis. 3. There is no evidence of intracranial extension at the skull base. 4. Again seen is fluid within the left middle ear and eustachian tube, as well as a large left mastoid effusion. ACT 112: Negative or not required by law. Electronically signed by: Dewayne Main M.D. 01/13/2022 10:05 PM PG Care Time/CCT Total # of Minutes Spent Total Time Spent with Patient: Total time spent is greater than 50% in coordination of care (as documented) at patient's floor/unit and/or counseling patient: Coding Level of Care Code 33462 Subseq Obs Care Lvl 3 Diagnoses Intractable nausea and vomiting R11.2 Dehydration E86.0 Hypokalemia E87.6 Constipation K59.00 Chronic sphenoidal sinusitis J32.3 Osteomyelitis of skull M86.9 Persistent headaches R51.9 Essential thrombocythemia D47.3 Chronic steroid use DVT prophylaxis Z29.9 Cranial nerve impairment G52.9
[2022-01-14] MEDS: POLYETHYLENE (MIRALAX) 17 GM PACK PO SCH (21:38)
[2022-01-14] MEDS: PROPRANOLOL HCL 10 MG TAB PO SCH (21:40)
[2022-01-14] MEDS: HYDROCORTISONE SOD 25 MG in SYRINGE 0 ML IV SCH (21:42)
[2022-01-15 06:54] LABS: Hematocrit (blood only) 31.9 % (37-47); Hemoglobin 10.3 g/dL (12.0-16.0); Mean Corpuscular Hemoglobin 35.2 pg (25-34); Mean Corpuscular Hgb Conc 32.3 g/dL (32-36); Mean Corpuscular Volume 108.9 fL (80-100); Mean Platelet Volume 10.8 fL (7.4-10.4); Platelet Count 327 K/uL (130-400); RDW Coefficient of Variation 15.8 % (11.5-14.5); Red Blood Count 2.93 M/uL (4.2-5.4); White Blood Count 6.77 K/uL (4.8-10.8)
[2022-01-15 07:20] LABS: BUN Creatinine Ratio 21.1 (10-20); C Reactive Protein 1.99 mg/dl (0-0.5); Calcium 8.4 mg/dl (8.5-10.1); Creatinine Clr Calc Pharmacy 52.5 ml/min; Est GFR (African American) 91.3 ml/min; Est GFR (Non-African American) 78.8 ml/min; Potassium 3.6 mmol/L (3.5-5.1)
[2022-01-15] MEDS: CEFEPIME 2,000 MG in SYRINGE 0 ML IV SCH ×2 (08:25→21:57)
[2022-01-15] MEDS: HYDROXYUREA 500 MG CAP PO SCH (08:26)
[2022-01-15] MEDS: HYDROCORTISONE SOD 25 MG in SYRINGE 0 ML IV SCH (08:26)
[2022-01-15] MEDS: SERTRALINE HCL 50 MG TABLET PO SCH (08:26)
[2022-01-15] MEDS: PROPRANOLOL HCL 10 MG TAB PO SCH ×2 (08:26→21:57)
[2022-01-15] MEDS: SENNA 8.6 MG TAB PO SCH (08:26)
[2022-01-15] MEDS: ASPIRIN 325 MG ECTAB PO SCH (08:27)
[2022-01-15] MEDS: POLYETHYLENE (MIRALAX) 17 GM PACK PO SCH ×5 (08:27→22:04)
[2022-01-15] MEDS: ADVANCED PROBIOTIC 1250 MG CAPSULE PO SCH (08:27)
[2022-01-15] MEDS ORDERED: PANTOprazole 40 MG TAB PO SCH (09:00)
--- NOTE | 2022-01-15 12:39 | Hospitalist Progress Note ---
Date of Service January 15, 2022 Assessment & Plan (1) Intractable nausea and vomiting: Plan: Resolved but still having various GI symptoms. Suspect this was a combination of factors including GI side effects from narcotics, gastritis (chronic aspirin use, chronic prednisone use, significant physical stress over last few weeks/months), constipation (no BM in 5+ days at time of admission), addisonian effects (chronic prednisone since 09/2021), reflux-inducing foods (lasagna), etc. Today she reports lack of appetite and abd bloating with unsatisfactory bowel movement this am (very small). A fecal occult test was sent today and was positive. Nursing states the stools was not gross melena, however. [id number] her hemoglobin did drop from 12.3 on 01/12/22 to 10.2 on 01/14/22 (the 14.5 interposed on 01/13 was likely hemoconcentrated). Can't rule out an element of acute blood loss from gastritis or PUD. Change H2 stas to PO PPI twice daily today. Downgrade diet to full liquids at her request. Treat constipation aggressively - will give mini-bowel prep with miralax today. Ok to wean stress dose steroids as below. CBC in am and if any further drop in H/H then GI consultation. NO EVIDENCE on MRI brain any advancement in her skull bone osteo or sinus disease. NO EVIDENCE on MRI of any new process. (2) Dehydration: Plan: Moderate-severe. Resolved. IV fluids stopped last pm. Solids intake is not the greatest but she is hydrating well. Dehydration 2nd #1 above. (3) Hypokalemia: Plan: replaced resolved bmp am (4) Constipation: Plan: severe no BM in 5+ days at time of this admission did have BM finally s/p dulcolax suppository yesterday however, she continues to feel bloated, and her BM this am was tiny will give senna 2 tabs daily + miralax "mini-bowel prep" today to try and really clean her out Down grade diet to full liquids (5) Chronic sphenoidal sinusitis: Plan: s/p ENT surgery by Dr Felix Manning on 01/06/22 with biopsy of nasopharyngeal mass/sphenoid sinus region and cultures. 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 Recent admission for this with initiation of IV cefepime for pseudomonas infection as confirmed on intra-op cultures. s/p ID consult - 6 week course of IV cefepime advised. Of note - pathology from her nasopharyngeal biopsies were c/w infectious process rather than malignancy or granulomatous disease (ie ANCA-associated vasculitis, etc). Continue IV cefepime 2gm IV q12h. Continue probiotics. Her CRP today is 1.99 which continues to decrease day to day. No new facial symptoms either. 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 procalcitonin wnl blood cultures negative from PRIOR admission; blood cultures negative THIS admission repeat MRI brain negative for any changes relative to MRI brain done 7-10 days ago Continue IV cefepime 2gm q12h appreciate Dr Felix Manning (ENT) consultation & recs (7) Persistent headaches: Plan: Occipital in location - 2nd to #6. During recent hospitalization headaches were controlled with hydrocodone prn. Has had the headaches for several months. Can't rule out component of migraines - had migraines since she was very young, then migraines improved following menopause. Resumed inderal albeit at lower dose of 10mg BID. (8) Essential thrombocythemia: Plan: Dx several years ago. Is on hydroxyurea daily for such. Also takes aspirin 325mg daily. Ultimately should be followed by heme/onc in the future for this. Peripheral smear during her previous admission did NOT show features of leukemia/lymphoproliferative disease. leukocytosis and worsening platelet count at time of admission were likely reactive; both wbcs and platelets have normalized while here (9) Chronic steroid use: Plan: Prednisone - usage since October 2021. During previous admission received 2.5mg of prednisone daily. In light of severe dehydration she has received stress-dose steroids in the form of hydrocortisone 50mg IV q8h. Weaned to 25mg TID, and then will wean to prednisone 30mg tomorrow. plan taper by 10's ultimately down to her usual dose of 2.5mg daily. Again have added PPI for GI prophy in light of physical stress, aspirin use, prednisone use, and possible gastritis. She is very anxious about her chronic prednisone use - reassurance given that hopefully it can be fully weaned off over the next month or so as outpatient. (10) DVT prophylaxis: Plan: defer on chemical means for now due to H/H drop and heme+ stool recheck cbc am for stability. 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, left side, with resulting left tongue impaired movement - improved over the course of this past week thought to be secondary to #5, #6 Plan: change observation to full admission hopeful for dc tomorrow depending on GI issues may need GI consultation, however, depending on H/H etc Admission and Anticipated Discharge Date Admission Date: January 13, 2022 Subjective tele wnl overnight she reports a very small, yellow/brown stool this am despite such she doesn't have much of an appetite - feels bloated & full no BRBPR or gross melena no nausea or emesis tolerating diet but really just focusing on liquids no occipital headache this am no dizziness or lightheadedness no facial symptoms Review of Systems Review of Systems: gen - no fevers or chills cv - no orthopnea or cp pulm - no cough or dyspnea gi - no abd pain despite her bloating Physical Exam Physical Exam: gen - NAD, looks well, looking on her computer when I first entered her room HENT - MMM; left side of tongue muscle function mildly impaired but much improved from 1 week ago neck - no JVD heart - RRR, s1 s2, no murmur lungs - CTA b/l abd - soft NT BS+; mild distension noted ext - no edema, pulses 2+ b/l psych - a/o x 3 Results & Data Results & Data ([facility]) Vital Signs (Past 12 Hours) Vital Signs Temp Pulse Pulse Resp BP Pulse Ox 01/15/22 11:54 36.7 C 60 20 123/60 97 01/15/22 10:40 74 01/15/22 07:59 36.7 C 63 18 138/57 L 97 01/15/22 03:00 36.6 C 57 L 18 129/65 93 Laboratory Results Laboratory Results - last 24 hr 01/15/22 01/15/22 06:36 06:36 WBC 6.77 RBC 2.93 L Hgb 10.3 L Hct 31.9 L MCV 108.9 H MCH 35.2 H MCHC 32.3 RDW Std Deviation 61.0 H RDW Coeff of Dwayne 15.8 H Plt Count 327 MPV 10.8 H Sodium 142 Potassium 3.6 Chloride 112 H Carbon Dioxide 24 Anion Gap 6 BUN 15 Creatinine 0.71 Est Cr Clr Drug Dosing 52.5 Est GFR ( Amer) 91.3 Est GFR (Non-Af Amer) 78.8 BUN/Creatinine Ratio 21.1 H Glucose 89 Calcium 8.4 L C-Reactive Protein 1.99 H PG Care Time/CCT Total # of Minutes Spent Total Time Spent with Patient: Total time spent is greater than 50% in coordination of care (as documented) at patient's floor/unit and/or counseling patient: Coding Level of Care Code 89107 Subseq Hosp Care Lvl 3 Diagnoses Intractable nausea and vomiting R11.2 Dehydration E86.0 Hypokalemia E87.6 Constipation K59.00 Chronic sphenoidal sinusitis J32.3 Osteomyelitis of skull M86.9 Persistent headaches R51.9 Essential thrombocythemia D47.3 Chronic steroid use DVT prophylaxis Z29.9 Cranial nerve impairment G52.9
[2022-01-15] MEDS: PANTOprazole 40 MG TAB PO SCH (22:00)
[2022-01-16] MEDS: ACETAMINOPHEN 325 MG TAB PO PRN ×2 (03:35→10:55)
[2022-01-16 08:50] LABS: Hematocrit (blood only) 35.7 % (37-47); Hemoglobin 11.5 g/dL (12.0-16.0); Mean Corpuscular Hemoglobin 35.2 pg (25-34); Mean Corpuscular Hgb Conc 32.2 g/dL (32-36); Mean Corpuscular Volume 109.2 fL (80-100); Mean Platelet Volume 10.9 fL (7.4-10.4); Platelet Count 305 K/uL (130-400); RDW Coefficient of Variation 15.6 % (11.5-14.5); RDW Standard Deviation 60.8 fL (36.4-46.3); Red Blood Count 3.27 M/uL (4.2-5.4); White Blood Count 6.46 K/uL (4.8-10.8)
[2022-01-16] MEDS ORDERED: predniSONE 10 MG TABLET PO ONE (09:00)
[2022-01-16 09:05] LABS: BUN Creatinine Ratio 12.2 (10-20); C Reactive Protein 1.01 mg/dl (0-0.5); Calcium 8.5 mg/dl (8.5-10.1); Creatinine Clr Calc Pharmacy 49.8 ml/min; Est GFR (African American) 86.8 ml/min; Est GFR (Non-African American) 74.9 ml/min; Potassium 3.4 mmol/L (3.5-5.1)
[2022-01-16] MEDS ORDERED: POTASSIUM CHLORIDE CRTAB 20 MEQ TABCR PO STA (09:20)
[2022-01-16] MEDS: SERTRALINE HCL 50 MG TABLET PO SCH (10:46)
[2022-01-16] MEDS: PROPRANOLOL HCL 10 MG TAB PO SCH ×2 (10:47→20:00)
[2022-01-16] MEDS: ADVANCED PROBIOTIC 1250 MG CAPSULE PO SCH (10:47)
[2022-01-16] MEDS: PANTOprazole 40 MG TAB PO SCH ×2 (10:48→20:01)
[2022-01-16] MEDS: HYDROXYUREA 500 MG CAP PO SCH (10:48)
[2022-01-16] MEDS: SENNA 8.6 MG TAB PO SCH (10:48)
[2022-01-16] MEDS: ASPIRIN 325 MG ECTAB PO SCH (10:48)
[2022-01-16] MEDS: CEFEPIME 2,000 MG in SYRINGE 0 ML IV SCH ×2 (10:56→20:01)
--- NOTE | 2022-01-17 23:02 | Discharge Summary ---
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 Patient states she discharged home about 1800 last evening and was feeling well. She & her daughter shared a lasagna meal for dinner last evening. She took her first dose of IV cefepime last night without difficulty. Prior to going to bed she had a minimal amount of nausea. She did take a hydrocodone pain pill for mild posterior occipital headache (had been taking such during the previous hospitalization without incident) at bedtime. Then, she awoke at 2am with the nausea/vomiting. In the midst of the vomiting she had hot/cold chills. No fever. Reports some very mild dizziness even at rest. No vertigo. Her headache overnight and this am are unchanged from her prior headaches. She received IV tylenol and IV fentanyl in the ER with resolution of the headache. Denies any ear pain (although L ear is full due to known OME), chest pain, cough, dyspnea, rash, diarrhea, dysuria, myalgias, musculoskeletal pains/arthralgias, focal motor weakness. Her throat is sore s/p vomiting. She does c/o very mild stomach discomfort in the lower abdomen. She has not had a bowel movement in many days and is not passing flatus this am. Following anti-emetics, pain meds, IV fluids, etc in the ER she feels a little better and the vomiting has stopped. 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 Discharge Exam gen - NAD, looks well HENT - MMM; left side of tongue muscle function mildly impaired but much improved from prior exams neck - no JVD heart - RRR, s1 s2, no murmur lungs - CTA b/l abd - soft NT BS+; distension resolved ext - no edema, pulses 2+ b/l psych - a/o x 3 Discharge Data Allergies Allergy/AdvReac Type Severity Reaction Status Date / Time levofloxacin [From Levaquin] AdvReac Intermediate tongue Verified 01/17/22 17:26 swelling codeine AdvReac Mild NAUSEA Verified 01/17/22 17:26 morphine AdvReac Mild GI SYMPTOMS Verified 01/17/22 17:26 Sulfa (Sulfonamide AdvReac Mild NAUSEA Verified 01/17/22 17:26 Antibiotics) Consultations ENT - Felix Manning MD Ordered Studies Chest/Abdomen X-ray 01/13/22 07:18 PA CHEST RADIOGRAPH AND UPRIGHT AND SUPINE AP RADIOGRAPHS OF THE ABDOMEN CLINICAL HISTORY: severe, recurrent vomiting COMPARISON STUDY: Chest radiograph January 03, 2022. FINDINGS: Lung volumes are normal. No pneumothorax or pleural effusion is noted. Minimal left basilar opacity favors atelectasis or scarring. No evidence for pulmonary edema or pneumonia. Cardiac size is normal. There is no free air. Bowel gas pattern is normal. Postoperative findings within the right lower quadrant are noted. Pelvic calcifications favor phleboliths. The amount of stool is within normal limits. IMPRESSION: 1. No free air or evidence of bowel obstruction. 2. No acute cardiopulmonary findings. ACT 112: Negative or not required by law. Electronically signed by: Lance Canales M.D. 01/13/2022 8:04 AM Brain MRI 01/13/22 12:13 MRI OF THE BRAIN COMBO TRIGEMINAL NERVE PROTOCOL CLINICAL HISTORY: Osteomyelitis of the clivus. COMPARISON STUDY: MRI of the brain dated 01/06/2022. CT scans of the brain and paranasal sinuses dated 01/03/2022. MRI of the brain dated 10/20/2021. TECHNIQUE: MRI of the brain was performed utilizing various T1 and T2-weighted sequences in the axial, sagittal, and coronal planes. Contrast-enhanced sequences were acquired following the administration of 6 cc of Gadavist. Additional high-resolution imaging was performed through the skull base both pre and post contrast to assess the trigeminal nerves. FINDINGS: Brain parenchyma: There is age-related involutional change noting [id number]-[id number] subcortical and periventricular microangiopathic disease. There is no hemorrhage or mass effect. There is no restricted diffusion typical for acute ischemia. No intracranial enhancing mass lesion is identified on the postcontrast images. Massey-white matter differentiation is preserved. No extra- axial fluid collection is seen. The cerebellar tonsils are normal in configuration. Ventricles, sulci, and cisterns: Prominent secondary to involutional change. Trigeminal nerves: Normal in symmetric with no abnormal postcontrast enhancement identified. Pituitary and sella: Unremarkable. Intracranial vasculature: Normal flow voids are maintained at the skull base. Orbits: The bony orbits are grossly intact. Orbital contents are normal in appearance noting bilateral ocular lens implants. Soft tissues: Abnormal enhancing soft tissue is again suggested within the posterior nasopharynx, left greater than right. There is also abnormal soft tissue thickening and enhancement within the left posterior parapharyngeal soft tissues. This surrounding the left internal carotid artery. There is heterogeneity and enhancement within the adjacent clivus. Fluid is again seen within the left middle ear. There is also fluid within the left eustachian tube. Sinuses and mastoids: There is trace mucosal thickening within the sphenoid sinuses. There is a 2 cm retention cyst in the right maxillary antrum. The remaining paranasal sinuses are clear. There is a large left mastoid effusion. The right mastoid air cells are clear. Calvarium: See above for discussion of the clivus. The remainder of the calvarium is normal.. Cervical cord: Partially visualized cervical spinal cord is normal in morphology and signal intensity. IMPRESSION: 1. No significant change from 01/06/2022. There is no hemorrhage, enhancing intracranial mass, or evidence of acute ischemia. 2. Again seen is abnormal enhancing soft tissue within the posterior nasopharynx, left greater than right, with involvement of the left parapharyngeal fat and infiltration of the clivus. This has been sampled surgically and reportedly represents infection/osteomyelitis. 3. There is no evidence of intracranial extension at the skull base. 4. Again seen is fluid within the left middle ear and eustachian tube, as well as a large left mastoid effusion. ACT 112: Negative or not required by law. Electronically signed by: Dewayne Main M.D. 01/13/2022 10:05 PM Hospital Course (1) Intractable nausea and vomiting: Resolved with copious IV fluids, stress-dose IV steroids, and anti- emetics. She also received acid reducers in the way of H2 stas and PPI. Suspect this was a combination of factors including GI side effects from narcotics, gastritis (chronic aspirin use, chronic prednisone use, significant physical stress over last few weeks/months), constipation (no BM in 5+ days at time of admission), addisonian effects (chronic prednisone since 09/2021), reflux-inducing foods (lasagna), etc. NO EVIDENCE on MRI brain of any advancement in her skull bone osteomyelitis or sinus disease. NO EVIDENCE on MRI of any new process. Ultimately resumed on a diet, and this was slowly advanced over her hospitalization. She was tolerating a regular diet on day of discharge. She was prescribed zofran prn as well as oral PPI to be used at home. (2) Dehydration: Moderate-severe. Resolved with IV fluids, anti-emetics, and stress-dose IV steroids. (3) Hypokalemia: replaced and resolved. (4) Constipation: Severe. No BM in 5+ days at time of this admission. Required suppositories, senna, and miralax to resolve the issue. Had numerous BMs with the above and her bloating/abdominal symptoms were much better following such. (5) Chronic sphenoidal sinusitis: s/p ENT surgery by Dr Felix Manning on 01/06/22 with biopsy of nasopharyngeal mass/sphenoid sinus region and cultures. 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 Had a recent admission (01/09 to 01/12) for this with initiation of IV cefepime for pseudomonas infection as confirmed on intra-op cultures. s/p [facility] ID consult during the prior hospitalization. A 6 week course of IV cefepime was advised by ID. Of note - pathology from her nasopharyngeal biopsies was c/w infectious process rather than malignancy or granulomatous disease (ie ANCA-associated vasculitis, etc). Continue IV cefepime 2gm IV q12h. Stop date February 20, 2022. Continue probiotics. Most recent peak CRP was 6.4. CRP was 1 prior to discharge. (6) Osteomyelitis of skull: see #5 above. procalcitonin was wnl this admission. blood cultures negative from PRIOR admission; blood cultures negative THIS admission. repeat MRI brain this admission showed no new areas of concern, and no worsening of her known sinusitis/osteomyelitis. Continue IV cefepime 2gm q12h - stop date February 20, 2022. Seen by Dr Felix Manning, ENT, during the stay. Dr Manning to see patient 1 week post-discharge. (7) Essential thrombocythemia: Diagnosis made several years ago. Is on hydroxyurea daily for such. Also takes aspirin 325mg daily. Ultimately should be followed by heme/onc in the future for this. Peripheral smear during her previous admission did NOT show features of leukemia/lymphoproliferative disease. Patient had transient leukocytosis and worsening platelet count at time of this admission. Both her wbcs and platelets normalized while here. Suspect the transient increase was due to a stress reaction in the setting of #1 above. (8) Chronic steroid use: Prednisone - usage since October 2021. Had been recently weaned to 2.5mg of prednisone daily. In light of severe dehydration she received stress-dose steroids in the form of hydrocortisone 50mg IV q8h. Weaned to 25mg TID of hydrocortisone, and then converted back to PO prednisone. After discharge she will taper prednisone as follows - * 20mg po x 1 day, then * 10mg po x 1 day, then * 5mg po x 1 day, then * resume 2.5mg daily thereafter Patient is hoping to wean off the prednisone entirely over the next 4-6 weeks which is reasonable. Defer that final wean process to Dr Garcia (PCP) or Dr Manning (ENT). Again have added PPI for GI prophylaxis in light of physical stress, aspirin use, prednisone use, and possible gastritis. 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 Thought 2nd to #5/#6. The hope is that the CN 12 goes back to normal with time and with IV antibiotics. (10) Heme positive stool: Patient had heme positive stool during this admission. However, the stool was never grossly melena in color. No BRBPR either. Admission hemoglobin was 14.5. I suspect that this value represented an element of hemoconcentration in the setting of severe dehydration/vomiting. Discharge hemoglobin was 11.5. The patient had a hemoglobin of about 12 to 12.5 during the prior hospitalization. Thus, I do not believe that the patient had active GI bleeding during the hospital stay. She will have weekly CBC (along with CMP, CRP) over the next 6 weeks of her IV cefepime course. Home Health Attestation I certify that this patient is under my care and that I, or a physicians regulatory assistant working with me, had a face to-face encounter that meets the home health phke-fh-atbc encounter requirements with this patient. The encounter with the patient was in whole, or in part, for the following medical condition, which is the primary reason for home health care (list medical condition): I certify that, based on my findings, the following services are medically necessary home health services: My clinical findings support the need for the above services because: Further, I certify that my clinical findings support that this patient is homebound (i.e. absences from home require considerable and taxing effort and are for medical reasons or [employer]on services or infrequently or of short duration when for other reasons) because: Certification for Home Health Services: Based on the above findings, I certify that this patient is confined to the home and needs intermittent retirement care, physical therapy and/or speech therapy or continues to need occupational therapy. The patient is under my care, and I have initiated the establishment of the plan of care. This patient will be followed by a physician who will periodically review the plan of care. Total Time Total Time Spent Total Time Spent (In Minutes): 50 Discharge Plan Discharge Items Patient Disposition: Home - Home Health Services Reason For Visit: VOMITING, DEHYDRATION Discharge Diagnosis: 1. vomiting - likely multiple causes - resolved 2. dehydration - resolved 3. severe constipation - resolved 4. sinusitis 5. osteomyelitis of skull bone Activity: As commented below Activity Comment: gradually increase your activities over the next few days Bathing Comment: please keep your left arm IV wrapped, clean/dry during showers Driving/Machine Use: NO DRIVING IF TAKING NARCOTIC PAIN KILLER MEDICATION Non-emergency contact: Primary Care Provider and Specialist Call non-emergency contact if: you have any medication questions, your symptoms worsen, your pain is not controlled, your pain is worsening and you have a fever Follow-up/Referrals: Jamal Garcia MD [Primary Care Provider] - (1-2 weeks Repair Table Operator will call you in the AM with appt dates.) Felix Manning MD [Physician] - (1 week) Diet: Regular Addtl Attending Provider Instructions: Mrs Jackson - Landen were readmitted to the hospital after having had severe vomiting at home which led to dehydration. The vomiting stopped upon admission, and your dehydration resolved with IV fluids and extra steroids. Blood and urine cultures were negative while here. Your chest x-ray did not show pneumonia. COVID testing was negative. Your repeat MRI brain did NOT show any new findings or any worsening of your known sinusitis and osteomyelitis. The vomiting was likely due to a number of factors including nausea from pain medication, constipation, gastritis (irritation of your stomach), etc. Your constipation finally resolved with taking multiple doses of miralax. Recommendations - 1. take pantoprazole 40mg once daily for stomach protection/prevention of reflux while taking steroids & aspirin. 2. take ondansetron tablets 4mg, 1 every 6 hours as needed for nausea. 3. for constipation - you may need a combination of miralax (once or twice daily) +/- senakot. Both are [id number]-ukdjsgo. Shoot for 1 soft bowel movement at least every other day. 4. prednisone - * 01/17/22 -- take 20mg x 1 * 01/18/22 -- take 10mg x 1 * 01/19/22 -- take 5mg x 1 * 01/20/22 -- take 2.5mg daily thereafter Please speak to Dr Manning or Dr Garcia about tapering off the prednisone over the next 4-6 weeks. 5. IV cefepime - 2 grams twice daily until February 20, 2022. 6. Continue your daily probiotics until the IV cefepime has finished. Eat some extra yogurt daily as well to help prevent diarrhea from the cefepime. 7. headache pain - if tylenol is working well please continue that. UP to 3000mg in 24 hours is acceptable. For severe pain you can use the hydrocodone/acetaminophen pain killer medication, 1 every 6 hours as needed, being mindful it causes constipation and drowsiness. 8. Home health will be coming to your home this week. Social work is arranging this. They will likely draw your weekly labs. First lab draw will be next 01/23/22. The results will go to Dr Garcia. Follow-up - see separate section Return to [facility] if you have fevers over 100 degrees, severe diarrhea, severe headache not responding to your medications, uncontrolled vomiting, etc. Best wishes, Dr Cantrell Pending Studies at Discharge: No Stand-Alone Forms: My [facility], Smoking Cessation Medications and DC Order Prescriptions: New pantoprazole 40 mg Tablet,Delayed Release (Dr/Ec) 40 mg PO QAM Qty: 30 RF: 1 ondansetron 4 mg tablet,disintegrating 4 mg PO Q6H PRN (Reason: nausea and vomiting) Qty: 15 RF: 0 prednisone 10 mg tablet 10 mg PO .daily as directed Qty: 10 RF: 0 Continued albuterol sulfate 90 mcg/actuation HFA aerosol inhaler 1 - 2 puff inhalation Q6H PRN (Reason: bronchospasm) Qty: 18 RF: 3 propranolol 20 mg tablet 20 mg PO BID Qty: 180 RF: 3 aspirin 325 mg tablet,delayed release (DR/EC) 325 mg PO QAM RF: 0 cyanocobalamin (vitamin B-12) 1,000 mcg tablet 1,000 mcg PO QAM Qty: 90 RF: 0 cholecalciferol (vitamin D3) 25 mcg (1,000 unit) tablet 1,000 unit PO QAM RF: 0 prednisone 1 mg tablet 2.5 mg PO UD RF: 0 prednisone 1 mg Tablet 1 mg PO UD RF: 0 Advanced Probiotic 625 mg (10 billion cell) Capsule 2 cap PO DAILY Qty: 60 RF: 1 hydrocodone-acetaminophen 5-325 mg tablet 1 tab PO Q6H PRN (Reason: pain) Qty: 30 RF: 0 cefepime 2 gram recon soln 2 g IV Q12H Qty: 75 RF: 0 hydroxyurea 500 mg capsule 500 mg PO QAM RF: 0 sertraline 25 mg tablet 25 mg PO QAM RF: 0 Discharge Orders: Discharge Order (Routine); Ordered 01/16/22 Ordered By: Gerry Jaramillo/Other Patient Handouts: Dehydration Admission Data Admit Date/Time: 01/13/22 08:46 Attending Provider: Gerry Cantrell Admit Provider: Gerry Cantrell Primary Care Provider: Jamal Garcia Other Providers: Gerry Cantrell ; Felix Manning ; [facility] Other Interventions: Discharge Summary Assessment (RN) Last Done: 01/16/22 20:17 Coding Level of Care Code D/C DAY MANAGEMENT >30 MINS Diagnoses Intractable nausea and vomiting R11.2 Dehydration E86.0 Hypokalemia E87.6 Constipation K59.00 Chronic sphenoidal sinusitis J32.3 Osteomyelitis of skull M86.9 Essential thrombocythemia D47.3 Chronic steroid use Cranial nerve impairment G52.9 Heme positive stool R19.5
== END 2022-01-16 20:38 | disposition home health service (06) | DRG 392 ==
LOC: ED 03:42 → 2S 08:46 → INTOOBSV 08:46 → 2S 09:50